=== PATIENT | male | born 1935 | race Caucasian/White ===

== ENCOUNTER → 2016-10-01 12:06 | Outpatient (CLI) | payer MEDICARE, OTHER ==
[2015-09-16 10:09] VITALS: BMI 26.6
[~2016-10-01 12:06] MED LIST: ASPIRIN EC81 M1 PO; OXYCONTIN15 MG PO; ULTRAM50 MG PO; XANAX0.5 MG PO
== END | disposition home or self-care (01) ==
LOC: D.US 12:06 → D.CT 14:00
DX: I65.23 Occlusion and stenosis of bilateral carotid arteries (principal); I73.9 Peripheral vascular disease, unspecified

== ENCOUNTER → 2016-10-07 13:41 | Outpatient (CLI) | payer MEDICARE, OTHER ==
[2015-09-16 10:09] VITALS: BMI 26.6
== END | disposition home or self-care (01) ==
LOC: D.CT 13:41
DX: I65.23 Occlusion and stenosis of bilateral carotid arteries (principal); R91.1 Solitary pulmonary nodule

== ENCOUNTER → 2016-10-14 10:48 | Outpatient (CLI) | payer MEDICARE, OTHER ==
[2015-09-16 10:09] VITALS: BMI 26.6
== END | disposition home or self-care (01) ==
LOC: D.CT 10:48
DX: R91.1 Solitary pulmonary nodule (principal)

== ENCOUNTER 2016-10-21 05:28 | Day surgery (SDC) | payer MEDICARE, OTHER ==
--- NOTE | 2016-10-17 17:21 | HP ---
PATIENT: CECY BARRERA MEDICAL RECORD: [id number] ACCOUNT: [id number] LOCATION:[facility] : 37 ADMISSION DATE: 10/21/16 HISTORY AND PHYSICAL EXAMINATION CECY Berger (81yo, M) ID# [id number]. Date/Time10/03/2016 10:72HBJWV72/06/193[facility] Dept.[facility] ClinicProviderEDRIKA PINEDA MDInsuranceMed Primary: [place]) Insurance # : [id number] PCP : KEMAR CASAS Referring Provider Name : KEMAR CASAS Employer Name : RETIRED Med Secondary: [employer] (MEDICARE SUPPLEMENT) Insurance # : [id number] Policy/Group # : INSPRO PCP : KEMAR CASAS Referring Provider Name : KEMAR CASAS Employer Name : RETIRED Prescription: ARGSDIR - Member is eligible. Prescription: [employer] - Member is eligible. Chief Complaint Followup: Solitary nodule of lung Followup: Carotid artery stenosis CTA AFRO and carotid doppler Patient's Care Team Primary Care Provider (): KEMAR CASAS: [place] [address], [place] [address], , Referring Provider (): KEMAR CASAS: [address], [place] [address], , Patient's Pharmacies [facility] ([facility]): [address], [place] [address], , Vitals BP:150/80 sitting R arm 10/03/2016 11:26 amHR:60R/R 10/03/2016 11:26 amHt:6 ft 2 in 10/03/2016 11:20 amWt:175 lbs 10/03/2016 11:23 amBMI:22.5 10/03/2016 11:23 amAllergies Reviewed Allergies PENICILLINSMedications Reviewed Medications ALPRAZolam 0.5 mg tablet Take 1 tablet(s) 3 times a day by oral route.09/30/16 filledcrealyticsAspir- enteredKat WilsondilTIAZem 30 mg tablet Take 1 tablet(s) 3 times a day by oral route.10/25/15 filledcrealyticsdoxycycline hyclate 100 mg cvijsmy15/04/17 filledcrealyticsgabapentin 300 mg mkfxmqu00/23/17 filledcrealyticsmethylPREDNISolone 4 mg tablets in a dose pack08/10/16 filledcrealyticsomeprazole 20 mg capsule,delayed acxepjy82/20/17 filledcrealyticsoxyCODONE 15 mg tablet Take 1 tablet(s) every 6 hours by oral route.07/10/16 filledcrealyticsoxyCODONE 30 mg xxlmuq65/20/17 filledcrealyticssucralfate 1 gram wfnlee59/23/17 filledcrealyticstraMADol 50 mg debhqy49/20/16 NutritionixProblems Reviewed Problems Limb pain at rest due to atherosclerosis of alutiiq artery - Onset: 12/08/2015 HISTORY AND PHYSICAL [id number] CECY BARRERA Solitary nodule of lung, Left Carotid artery stenosis, Bilateral Amaurosis fugax, Right Family History Discussed Family History Father- Myocardial infarction ( age: 64)Mother- Old-age ( age: 92)lost siblings to cancerSocial History Discussed Social History Cardiology Smoking Status: Current every day smoker Smoker (1 PPD) High Cholesterol: N High blood pressure: N Overweight: Y Diabetes: N General stress level: High Alcohol intake: None Occupation: retired Marital status: Surgical History Reviewed Surgical History Carotid Endarterectomy - 09/15/2015 - Right Excision, pilonidal cyst - 09/25/2012 Past Medical History Discussed Past Medical History Blurred Vision: Y Eye Problems: Y Pain in legs when walking: Y Documents for Discussion N/A Screening None recorded. HPI Cerebral Vascular Disease Reported by patient. Quality: weakness; dizziness Aggravating Factors: position change Associated Symptoms: syncope Peripheral Vascular Disease Reported by patient. Location: calf; back Quality: cramping; burning; weakness Severity: interferes with normal activity Onset/Timing: continuous Notes: "seeing a pain DrKelly today" patient declined workup of solitary pulmonary nodule Carotid artery disease and a recent TIA Rest pain lower extremities bilaterally ROS Patient reports exercise intolerance but reports no fever, no night sweats, no significant weight gain, and no significant weight loss. He reports muscle aches, muscle weakness, arthralgias/joint pain, and back pain but reports no swelling in HISTORY AND PHYSICAL [id number] CECY BARRERA the extremities. He reports no loss of consciousness, no weakness, no numbness, no seizures, no dizziness, and no headaches; CTA to 3 months ago. He reports no dry eyes, no irritation, and no vision change. He reports no difficulty hearing and no ear pain. He reports no frequent nosebleeds and no nose/sinus problems. He reports no sore throat, no bleedi ng gums, no snoring, no dry mouth, no mouth ulcers, no oral abnormalities, and no teeth problems. He reports no jugular vein distension and no swollen glands. He reports no chest pain, no arm pain on exertion, no shortness of breath when walking, no short n ess of breath when lying down, no palpitations, and no known heart murmur. He reports no cough, no wheezing, no shortness of breath, and no coughing up blood. He reports no abdominal pain, no vomiting, normal appetite, no diarrhea, not vomiting blood, no n ausea, and no constipation. He reports no incontinence, no difficulty urinating, no hematuria, and no increased frequency. He reports no abnormal mole, no jaundice, and no rashes. He reports no depression, no sleep disturbances, feeling safe in [facility] ip, and no alcohol abuse. He reports no fatigue. He reports no swollen glands and no bruising. He reports no runny nose, no sinus pressure, no itching, no hives, and no frequent sneezing. ROS as noted in the HPI Physical Exam Patient is an 81-year-old male. Constitutional: General Appearance well nourished and developed and healthy-appearing. Level of Distress NAD. Ambulation limited ambulation. Cardiovascular: Apical Impulse not displaced or no thrill. Heart Auscultation normal s1 and s2; no murmurs, rub s, or gallops; and RRR. Arterial Pulses no abdominal aorta bruits, femoral bruits, or popliteal bruits; femoral diminished (bilateral) and dorsalis pedis not palpable (bilateral); and 2+ bilateral, carotid 2+ bilateral, femoral 2+ bilateral, and popliteal 2+ bilateral. Edema no edema or varicosities. Lungs: Repiratory Effort no dyspnea. Percussion no hyperresonance or dullness or flatness. Auscultation no wheezing, rhonchi, or rales / crackles and breathing sounds normal, good air movement, and CTA except as noted. Abdomen: Bowl Sounds normal. Inspection and Palpation no tenderness, guarding, masses, or rebound tenderness and soft and non-distended. Liver non-tender and no hepatomegaly. Spleen non-tender and no splenomegaly. Hernia none palpable. Ears, Nose, Throat: Hearing grossly normal hearing. Nose no external nose lesion. Lips, Teeth, and Gums no mouth or lip ulcers. Oropharynx: moist mucous membranes. Musculoskeletal System: Gait And Stance normal gait and stance. Digits and Nails normal nails and no cyanosis. Joints, Bones, and Muscles limited ROM and normal strength. Neurologic: Cranial Nerves grossly intact. Reflexes DTRs 2+ bilaterally throughout. Sensation grossly intact. Lymph Nodes: Lymph Nodes no cervical LAD, supraclavicular LAD, axillary LAD, or inguinal LAD. Eyes: Lids and Conjunctivae no discharge or pallor and non-injected. Pupils PERRLA. Cornea grossly intact. EOM EOMI. Lens clear. Sclerae non-icteric. Neck: Neck no masses, enlarged lymph nodes, or carotid bruits and supple and trachea HISTORY AND PHYSICAL [id number] BRUCE,CECY L midline. Thyroid no enlargement or nodules and non-tender. Skin: Inspection and Palpation no rash, lesions, ulcers, jaundice, or abnormal nevi. Assessment / Plan superficial femoral artery occlusion bilaterally Solitary pulmonary nodule Change in carotid Doppler and recently a transient ischemic attack 1. Solitary nodule of lung R91.1: Solitary pulmonary nodule 2. Carotid artery stenosis - Bilateral I65.29: Occlusion and stenosis of unspecified carotid artery CAROTID STENOSIS: CARE INSTRUCTIONS 3. Limb pain at rest due to atherosclerosis of alutiiq artery - carotid artery disease recently transient ischemic attack Superficial femoral artery occlusion bilaterally with Rest pain Solitary pulmonary nodule I70.223: Atherosclerosis of alutiiq arteries of extremities with rest pain, bilateral legs Discussion Notes CTA of the carotids Chest x-ray PA and lateral Will schedule for intervention lower extremities right to left first I have discussed his disease process with him in detail as well as the alternative methods of treatment. We discussed arteriogram and intervention including the expected benefits and risk which include bleeding, infection, stroke, and . He understands all of the above and wishes to proceed with planned procedures and surgical intervention if needed. Return to Office Ash Garza MD for New Patient [facility] [place] on 10/04/2016 at 10:00 AM to see Silvino Pineda MD at [facility] on or around 10/17/2016 SILVINO PINEDA MD at 1721 CC: [id number] DICTATION DATE: 10/03/16 1000 MACHINE GREASER: OCTAVIA 10/17/16 1431 PRE IN [facility] [address] [place] [address]
[2016-10-18 12:02] LABS: HEMATOCRIT 46.1 % (42.0-54.0); HEMOGLOBIN 14.8 g/dL (13.5-17.5); MCH 32.3 pg (26.0-34.0); MCHC 32.1 g/dL (31.0-37.0); MCV 100.7 fL (80.0-100.0); MEAN PLATELET VOLUME 10.6 fL (7.4-10.4); RBC 4.58 10x6/uL (4.20-6.10); RDW 12.7 % (11.5-14.5); WBC 6.7 10x3/uL (4.8-10.8)
[2016-10-18 12:07] LABS: APPEARANCE CLEAR (CLEAR); BILIRUBIN NEGATIVE (NEGATIVE); COLOR YELLOW (YELLOW); GLUCOSE NEGATIVE (NEGATIVE); KETONE NEGATIVE (NEGATIVE); LEUKOCYTE ESTERASE NEGATIVE (NEGATIVE); NITRITE NEGATIVE (NEGATIVE); PROTEIN NEGATIVE (NEGATIVE); SPECIFIC GRAVITY 1.015 (1.005-1.020); UROBILINOGEN NORMAL (NORMAL)
[2016-10-18 12:16] LABS: ALBUMIN 3.7 g/dL (3.4-5.0); ANION GAP 9.6 mmol/L (8-16); BILIRUBIN - TOTAL 0.48 mg/dL (0.2-1.3); CALCIUM 8.8 mg/dL (8.5-10.1); CARBON DIOXIDE 30.9 mmol/L (21.0-32.0); CREATININE - SERUM 1.3 mg/dL (0.6-1.3); POTASSIUM - SERUM 4.5 mmol/L (3.5-5.1); PROTEIN - SERUM 7.5 g/dL (6.4-8.2)
[2016-10-18 12:25] LABS: APTT 27.5 SECONDS (22.8-39.4); INR 0.98 (0.85-1.17); PROTIME 12.9 SECONDS (11.6-15.0)
[2016-10-21] VITALS (16 sets, daily range): BP systolic 103–153; BP diastolic 45–70; Ht 188 cm; Wt 81.0 kg
[~2016-10-21] VITALS: Ht 188 cm; Wt 81.0 kg
[~2016-10-21 05:28] MED LIST changes: +FLOMAX0.4 MG PO; +OMEPRAZOLE20 M1 PO; +PROSCAR5 MG PO
--- NOTE | 2016-10-21 12:30 | NUR ---
PT ARRIVED TO CVICU AT THIS TIME. PT IS ALERT, C/O BACK PAIN. PT ON NRB, SWITCHED TO NC @ 4L. PT ATTACHED TO MONITOR, VSS. TEMP LOW, BEAR HUGGER APPLIED. LUNG SOUNDS CLR BILAT. HR 57, WILL MONITOR. INCISION SITE IS SUPPLE, CLEAN DRSG INTACT. LEFT LEG, POST TIB DOPPLERED, WEAK IN R LEG. PT AT BEDSIDE.
--- NOTE | 2016-10-21 15:00 | NUR ---
PT RESTING IN BED COMFORTABLY AT THIS TIME. PT TAKING SMALL SIPS OF WATER. TEMP IS IMPROVING. CENTRAL LINE DILLON MORIN. RHYS. ALMA MARTINI.
--- NOTE | 2016-10-21 17:00 | NUR ---
PT SITTING UP IN BED EATING DINNER IDEPENDENTLY. NO REQUESTS AT THIS TIME. VSS
--- NOTE | 2016-10-21 19:00 | NUR ---
Received patient awake in bed watching TV, Assessment completed per flowsheet. AO x4, demeanor is cooperative and relaxed. Eyes PERRLA @ 3mm with brisk response, sclera white. S1/S2 noted with patient Sinus Carlyle on telemetry with HR 57, rhythmic and regular. Breathing is even and unlabored on 3L via NC, Lung sounds clear all chow. Abdomen is soft and non-tender, bowel sounds active x4. Criticore secured in place, clear yellow urine noted in collection. Full ROM all extremities with upper pulses palpable, R lower weak with L lower doppler. CVL noted L subclavian, patent with fluids infusing. R groin incision site soft to palpation, dressing CDI. Patient c/o bilateral aching/burning leg pain 5/10, repositioned and will provide PRN medication when available. No further needs at this time, all VSS and will continue to monitor.
--- NOTE | 2016-10-21 20:45 | NUR ---
Patient family at bedside for visitation, all questions answered to satisfaction. No further needs at this time, all VSS and will continue to monitor.
--- NOTE | 2016-10-21 22:55 | NUR ---
Reassessment completed per flowsheet, patient resting in bed with eyes closed. Patient AO x4, calm and cooperative. s1/s2 noted with patient Sinus Carlyle on telemetry with HR 60, rhythmic and regular. Breathing is even and unlabored on 3L via NC, O2 sat 96%. R groin incision site soft to palpation, dressing CDI. Patient requested PRN medication for sleep, given without difficulty. Patient states chronic leg pain 2/10, does not need any medication at this time. No further needs and all VSS, will continue to monitor.
[2016-10-22] VITALS (12 sets, daily range): BP systolic 98–146; BP diastolic 46–69
--- NOTE | 2016-10-22 03:00 | NUR ---
Reassessment completed per flowsheet, patient resting in bed with eyes open. Patient AO x4, c/o chronic bilateral leg pain 09/16. Repositioned, provided warm blanket/heat pack to indicated area, will reassess. S1/S2 noted with Sinus Carlyle on telemetry with HR 51, rhythmic and regular. Breathing is even and unlabored on 3L via NC, O2 sat 98%. No further needs at this time, all VSS and will continue to monitor.
[2016-10-22 05:49] LABS: HEMATOCRIT 37.7 % (42.0-54.0); HEMOGLOBIN 12.7 g/dL (13.5-17.5); MCH 32.9 pg (26.0-34.0); MCHC 33.7 g/dL (31.0-37.0); MCV 97.7 fL (80.0-100.0); MEAN PLATELET VOLUME 10.4 fL (7.4-10.4); RBC 3.86 10x6/uL (4.20-6.10); RDW 12.3 % (11.5-14.5); WBC 7.8 10x3/uL (4.8-10.8)
[2016-10-22 06:14] LABS: ANION GAP 7.8 mmol/L (8-16); BILIRUBIN - TOTAL 0.59 mg/dL (0.2-1.3); CALCIUM 8.1 mg/dL (8.5-10.1); CARBON DIOXIDE 30.5 mmol/L (21.0-32.0); CREATININE - SERUM 1.1 mg/dL (0.6-1.3); POTASSIUM - SERUM 3.3 mmol/L (3.5-5.1); PROTEIN - SERUM 6.1 g/dL (6.4-8.2)
--- NOTE | 2016-10-22 07:00 | NUR ---
REPORT RECEIVED. ASSESSMENT COMPLETED. PATIET REQUESTING COFFEE AND FOOD. COFFEE TAKEN TO PATIENT WELL HIS BREAKFAST TRAY. DENIES FURTHER NEEDS AT THIS TIME.
--- NOTE | 2016-10-22 08:09 | NUR ---
CALL PLACED TO ENGINEERING, SPOKE WITH TREMAYNE. PATIENT C/O ROOM BEING TOO COLD. SHE STATED SHE WILL RELAY THE MESSAGE FOR TEMPERATURE ADJUSTMENT.
--- NOTE | 2016-10-22 08:35 | NUR ---
DC'D 16FR LIZARRAGA WITH 8CC BULB, TIP INTACT. PT TOLERATED WELL.
--- NOTE | 2016-10-22 09:12 | NUR ---
DC'D 8FR 16 CM DOUBLE LUMEN SUBCLAVIAN WITH TIP INTACT. PATIENT TOLERATED WELL. SECONDARY TO PATIENT NOT WEARING OXYGEN AT HOME. O2 WAS REMOVED. PATIENT IS SATING 93% ON ROOM AIR.
--- NOTE | 2016-10-22 12:11 | NUR ---
PATIENT DISCHARGED PER ORDERS. DENIES QUESTIONS. TAKEN TO CAR VIA WHEELCHAIR.
--- NOTE | 2016-10-26 11:28 | OP ---
PATIENT NAME: CECY BARRERA MEDICAL RECORD: [id number] :37 LOCATION:[facility] ADMISSION DATE: SURGEON: PAVEL MARX MD DATE OF OPERATION: 10/21/2016 SURGEON: Pavel Marx MD ANESTHESIA: General, Dr. Garcia. OPERATION PERFORMED: 1. Right retrograde sheath placements, 4-Spanish, 5-Spanish, 6-Spanish long. 2. Right retrograde external iliac arteriogram. 3. Left selective common femoral arteriogram. 4. Left superficial femoral arteriogram. 5. Attempted crossing chronic total occlusion of left superficial femoral artery, aborted. 6. Left nonselective distal popliteal arteriogram. PREOPERATIVE DIAGNOSIS: Severe claudication in the lower extremities bilaterally. POSTOPERATIVE DIAGNOSES: Severe claudication in the lower extremities bilaterally. 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 INDICATION FOR OPERATION: Life altering claudication. FINDINGS OF THE OPERATION: Fluoro time was 59 minutes. Contrast was 231 mL. ARTERIOGRAMS: 1. Right external iliac arteriogram demonstrates diffuse disease, but no stenotic lesions. A left common femoral arteriogram demonstrates excellent flow through the iliacs, common femoral into the profunda femoral artery with a stump of superficial femoral artery. 2. Superficial femoral arteriogram demonstrates isolated segments without direct flow to the distal popliteal exuberant collateral flow. 3. Nonselective left popliteal arteriogram below the knee demonstrates good 3-vessel runoff and nondisease distal popliteal segment. ESTIMATED BLOOD LOSS: Less than 100 cc. DESCRIPTION OF PROCEDURE: After informed consent, adequate preoperative medication evaluation, the patient was brought to the operating room, placed on table in supine position. After induction of general endotracheal anesthesia and application of appropriate monitoring devices, the chest, abdomen, and both legs were prepped and draped in a sterile field, utilizing Betadine scrub, alcohol, and Betadine solution. A Betadine-impregnated drape was also used. A retrograde puncture was made in the right common femoral artery and a 4-Spanish sheath was placed. This was exchanged for a 5-Spanish sheath. A retrograde arteriogram demonstrated the iliac vessels without any significant stenotic disease. Utilizing a Glidewire and rim catheter, the left common femoral artery OPERATIVE REPORT [id number] CECY BARRERA was selected. Exchange was made for an Amplatz wire and exchange made for a long 6-Spanish sheath. The arteriogram of the common femoral artery was repleted with runoff. There was exuberant flow to the distal popliteal artery. The superficial femoral artery was totally occluded utilizing multiple wires, catheters and balloons. Attempts were made to cross this chronic total occlusion. We were able to obtain 2 isolated segments; however, no direct flow. Attempts were made to reenter the distal popliteal vessel, which also made with failure. The arteriogram was then performed below the knee with a popliteal artery and 3-vessel runoff to the foot. The wires and catheter sheaths were removed. The patient was given a calculated dose of protamine to reverse the heparin. A 6-Spanish Angio-Seal was deployed with good hemostatic results. Sterile dressing was applied. The patient tolerated the procedure well and was transferred to the CV ICU in satisfactory condition. TRANSINT:[id number] Voice Confirmation ID: [id number] DOCUMENT ID: [id number] PAVEL MARX MD at 1128 CC: [id number] DICTATION DATE: 10/21/16 1220 FAMILY LIFE EDUCATOR: 10/21/[address] [facility] 10/22/16 [facility] [address] [place] [address]
== END 2016-10-22 12:12 | disposition home or self-care (01) ==
LOC: D.CVICU 05:28 → D.SDCHOLD 05:28 → D.CVICU 05:28 → D.OPS 05:28 → EDSTATUS 07:30 → D.SDCHOLD 07:30 → D.CVICU 12:07 → D.OPS 10-22 12:12
PROVIDERS: Internal Medicine Cardiovascular Disease
DX: I70.223 Atherosclerosis of native arteries of extremities with rest pain, bilateral legs (principal); R91.1 Solitary pulmonary nodule; I65.29 Occlusion and stenosis of unspecified carotid artery; G45.3 Amaurosis fugax; F17.210 Nicotine dependence, cigarettes, uncomplicated; E66.3 Overweight; Z68.22 Body mass index [BMI] 22.0-22.9, adult; Z88.0 Allergy status to penicillin; Z79.891 Long term (current) use of opiate analgesic; Z79.52 Long term (current) use of systemic steroids; Z79.2 Long term (current) use of antibiotics; Z79.82 Long term (current) use of aspirin; Z86.73 Personal history of transient ischemic attack (TIA), and cerebral infarction without residual deficits

== ENCOUNTER → 2018-02-24 10:57 | Outpatient (CLI) | payer MEDICARE, OTHER | END | disposition home or self-care (01) | LOC: D.US 10:57 | DX: I73.9 Peripheral vascular disease, unspecified (principal); I65.23 Occlusion and stenosis of bilateral carotid arteries; M79.605 Pain in left leg; M79.604 Pain in right leg ==

== ENCOUNTER 2018-03-07 17:36 | Emergency (ER) | payer MEDICARE, OTHER ==
[~2018-03-07] VITALS: Ht 188 cm; Wt 74.8 kg
[2018-03-07 17:49] VITALS: Ht 188 cm; Wt 74.8 kg
[2018-03-07 18:01] LABS: BASOPHILS 0.2 % (0-2); EOSINOPHILS 1.1 % (0-7); HEMATOCRIT 39.4 % (42.0-54.0); IMMATURE GRANULOCYTES 0.2 % (0-5); LYMPHOCYTES 8.5 % (15-50); MCH 32.3 pg (26.0-34.0); MEAN PLATELET VOLUME 10.1 fL (7.4-10.4); PLATELET COUNT 161 10x3/uL (130-400); RBC 4.02 10x6/uL (4.20-6.10); RDW 12.5 % (11.5-14.5); WBC 11.4 10x3/uL (4.8-10.8)
[2018-03-07 18:18] LABS: BILIRUBIN - TOTAL 0.47 mg/dL (0.2-1.3); CARBON DIOXIDE 28.5 mmol/L (21.0-32.0); CREATININE - SERUM 1.5 mg/dL (0.6-1.3); POTASSIUM - SERUM 4.5 mmol/L (3.5-5.1); PROTEIN - SERUM 7.4 g/dL (6.4-8.2)
[2018-03-07 19:50] LABS: PRO BNP 2759 pg/mL (0-450)
[2018-03-07 19:51] LABS: TROPONIN-I < 0.017 ng/mL (0.000-0.060)
[2018-03-07 22:18] VITALS: BP 105/72
== END 2018-03-07 22:20 | disposition left against medical advice (07) ==
LOC: D.ER 17:36
PROVIDERS: Emergency Medicine
DX: R09.02 Hypoxemia (principal); J44.1 Chronic obstructive pulmonary disease with (acute) exacerbation; J81.0 Acute pulmonary edema; R06.02 Shortness of breath; R05 Cough; R09.89 Other specified symptoms and signs involving the circulatory and respiratory systems; F17.200 Nicotine dependence, unspecified, uncomplicated

== ENCOUNTER 2018-04-28 11:11 | Inpatient (IN) | payer MEDICARE, OTHER ==
[~2018-04-28] VITALS: Ht 188 cm; Wt 65.4 kg
[2018-04-28] VITALS (14 sets, daily range): BP systolic 128–163; BP diastolic 42–74; BMI 20.2
--- NOTE | ~2018-04-28 | MORECARE ---
CASE MANAGEMENT DISCHARGE SUMMARY PATIENT: CECY BARRERA UNIT: [id number] ADM DATE: 04/28/18 AGE: 82 : 36 SEX: M ROOM/BED: D.03 AUTHOR: KAYLA,DOC PHYSICIAN: REFERRING PHYSICIAN: ELIZABETH BERNSTEIN MD DATE OF SERVICE: 05/06/18 Discharge Plan Patient Name: CECY BARRERA Facility: [facility]:[place] : 1935 Planned Disposition: Inpatient Rehab Anticipated Discharge Date: Discharge Date: 05/06/2018 Expected LOS: Initial Reviewer: [email or web address] Initial Review Date: 05/01/2018 Generated: 05/06/18 5:24 pm Comments DCP- Discharge Planning Updated by [email or web address]: Catherine Light on 05/06/18 3:[address] IMM explained and served 05/06/18 @ [facility]. CM will continue to follow and assist as needed with discharge planning / needs. DCP- Discharge Planning Updated by [email or web address]: Georgia Isaiah on 05/06/18 8:[address] CM spoke with Sheeba at [facility] rehab regarding status of patient going to rehab. Sheeba informed CM that Dr. Marx is planning to pull pacer wires this am and then patient can go to rehab as soon as screening is finished. Sheeba is in the process of completing the screen and expects patient to go to rehab today. CM informed Kika charge nurse. CM will continue to follow and assist as needed with discharge planning / needs. DCP- Discharge Planning Updated by [id number]: Catherine Light on 05/05/18 6:[address] CM spoke with Sheeba with rehab. Sheeba stated that rehab will accept patient when medically stable. CM will continue to follow and assist with discharge planning / needs DCP- Discharge Planning Updated by [id number]: Catherine Light on 05/04/18 9:[address] CM called Dr. Alex Martinez office to find out name of Hospice provider. Patient was admitted to [facility] [phone] on 04/20/18. CM spoke with Hospice and they were aware patient was in hospital for cardiac problems which they said was alright since he was admitted to hospice for COPD. CM explained that patient had a referral for rehab. Hospice stated that if he goes to rehab then he will have to be discharged from their services. CM will continue to follow and assist with discharge planning / needs. DCP- Discharge Planning Updated by [id number]: Catherine Light on 05/01/18 12:[address] Patient Name: CECY BARRERA Admission Status: Elective Accout number: [id number] Admission Date: 04-28-2018 : 1935 Admission Diagnosis: Attending: ELIZABETH BERNSTEIN Current LOS: 3 Anticipated DC Date: Planned Disposition: Home with Hospice Primary Insurance: MEDICARE A & B Discharge Planning Comments: CM ATTEMPTED TO MEET WITH PATIENT BUT AT THIS TIME HE CURRENTLY CONFUSED AND AGITATED. CM SPOKE WITH MARIBEL VEGA -N-LAW. SHE STATES THAT THE PATIENT LIVES ALONE AND THAT HIS A MONTH AGO. MARIBEL STATES THAT THE PATIENT HAS HOSPICE IN HIS HOME BUT DOESN'T KNOW PROVIDER. SHE STATES THAT THEY HAVE PROVIDED HIM WITH HOME 02. CM CALLED DR. KUO OFFICE TO FIND OUT NAME OF HOSPICE PROVIDER. THE OFFICE IS CLOSED TODAY FOR HOLIDAY. MARIBEL IS UNCERTAIN PATIENTS DISCHARGE NEEDS AT THIS TIME. CM WILL CONTINUE TO FOLLOW AND NEEDED WITH DISCHARGE PLANNING / NEEDS. Broker Associate: Catherine Light DCPIA - Discharge Planning Initial Assessment Updated by [email or web address]: Catherine Light on 05/01/18 1:02 pm * Is the patient Alert and Oriented? Yes * How many steps to enter\exit or inside your home? * PCP ALEX MARTINEZ * Preadmission Environment Home Alone * ADLs Independent * Equipment Oxygen * List name and contact numbers for known caregivers / representatives who currently or will assist patient after discharge: MARIBEL Graff [id number] [phone] * Verbal permission to speak to the caregivers and representatives has been obtained from the patient. N/A * Community resources currently utilized Hospice Home * Please name any agencies selected above. UNKNOWN PROVIDER WILL NEED TO CALL DR. MARTINEZ OFFICE * Additional services required to return to the preadmission environment? No * Can the patient safely return to the preadmission environment? Yes * Has this patient been hospitalized within the prior 30 days at any hospital? No Coverage Notice Reviewer: [email or web address] - Catherine Light Notice Issued Date-Time: 05/06/2018 12:35 Notice Type: IM Discharge Notice Notice Delivered To: Patient Relationship to Patient: Self Clinical Staff Rn Name: Delivery Method: HAND - Hand Delivered Angeli Days: Prior Verbal Notification: Recipient Understood Notice: Yes Recipient Signature: Yes Med Rec Note Co-signed by Attending: Coverage Notice Comment: Last DP export: 05/06/18 8:59 Patient Name: CECY BARRERA Page [id number] at 1624 All edits/amendments must be made on the electronic document DICTATION DATE: 05/06/18 1624 LEAD RADIATION THERAPIST: OCTAVIA 05/06/18 1624 RPT#: [id number] DC DATE:05/06/18 STATUS: DIS IN [facility] [address] [place] [address] END OF REPORT
--- NOTE | ~2018-04-28 | MORECARE ---
CASE MANAGEMENT DISCHARGE SUMMARY PATIENT: CECY BARRERA UNIT: [id number] ADM DATE: 04/28/18 AGE: 82 : 36 SEX: M ROOM/BED: D[facility] AUTHOR: KAYLADOC PHYSICIAN: REFERRING PHYSICIAN: ELIZABETH BERNSTEIN MD DATE OF SERVICE: 05/01/18 Discharge Plan Patient Name: CECY BARRERA Facility: [facility]:[place] : 1935 Planned Disposition: Home with Hospice Anticipated Discharge Date: Discharge Date: Expected LOS: Initial Reviewer: [email or web address] Initial Review Date: 05/01/2018 Generated: 05/01/18 2:16 pm Comments DCP- Discharge Planning Updated by [email or web address]: Catherine Light on 05/01/18 12:[address] Patient Name: CECY BARRERA Admission Status: Elective Accout number: [id number] Admission Date: 04-28-2018 : 1935 Admission Diagnosis: Attending: ELIZABETH BERNSTEIN Current LOS: 3 Anticipated DC Date: Planned Disposition: Home with Hospice Primary Insurance: MEDICARE A & B Discharge Planning Comments: CM ATTEMPTED TO MEET WITH PATIENT BUT AT THIS TIME HE CURRENTLY CONFUSED AND AGITATED. CM SPOKE WITH MARIBEL PATIENTS SISTER -N-LAW. SHE STATES THAT THE PATIENT LIVES ALONE AND THAT HIS A MONTH AGO. MARIBEL STATES THAT THE PATIENT HAS HOSPICE IN HIS HOME BUT DOESN'T KNOW PROVIDER. SHE STATES THAT THEY HAVE PROVIDED HIM WITH HOME 02. CM CALLED DR. KUO OFFICE TO FIND OUT NAME OF HOSPICE PROVIDER. THE OFFICE IS CLOSED TODAY FOR HOLIDAY. MARIBEL IS UNCERTAIN PATIENTS DISCHARGE NEEDS AT THIS TIME. CM WILL CONTINUE TO FOLLOW AND NEEDED WITH DISCHARGE PLANNING / NEEDS. Jaw Skinner: Catherine Light DCPIA - Discharge Planning Initial Assessment Updated by [email or web address]: Catherine Light on 05/01/18 1:02 pm * Is the patient Alert and Oriented? Yes * How many steps to enter\exit or inside your home? * PCP ALEX CASAS * Preadmission Environment Home Alone * ADLs Independent * Equipment Oxygen * List name and contact numbers for known caregivers / representatives who currently or will assist patient after discharge: MARIBEL - [id number] [phone] * Verbal permission to speak to the caregivers and representatives has been obtained from the patient. N/A * Community resources currently utilized Hospice Home * Please name any agencies selected above. UNKNOWN PROVIDER WILL NEED TO CALL DR. CASAS OFFICE * Additional services required to return to the preadmission environment? No * Can the patient safely return to the preadmission environment? Yes * Has this patient been hospitalized within the prior 30 days at any hospital? No Last DP export: 05/01/18 12:09 Patient Name: CECY BARRERA Page [phone] at 1316 All edits/amendments must be made on the electronic document DICTATION DATE: 05/01/18 1316 FOOD PRODUCTION SUPERVISOR: OCTAVIA 05/01/18 1316 RPT#: [id number] DC DATE: STATUS: ADM IN [facility] [address] [place] [address] END OF REPORT
--- NOTE | ~2018-04-28 | MORECARE ---
CASE MANAGEMENT DISCHARGE SUMMARY PATIENT: CECY BARRERA UNIT: [id number] ADM DATE: 04/28/18 AGE: 82 : 36 SEX: M ROOM/BED: D.[facility] AUTHOR: RADHAMES GARZA PHYSICIAN: REFERRING PHYSICIAN: ELIZABETH BERNSTEIN MD DATE OF SERVICE: 05/01/18 Discharge Plan Patient Name: CECY BARRERA [facility] [facility] 1935 Planned Disposition: Home with Hospice Anticipated Discharge Date: Discharge Date: Expected LOS: Initial Reviewer: [email or web address] Initial Review Date: 05/01/2018 Generated: 05/01/18 2:01 pm Patient Name: CECY BARRERA Page [id number] at 1301 All edits/amendments must be made on the electronic document DICTATION DATE: 05/01/18 1301 SOAP PRESS FEEDER: OCTAVIA 05/01/18 1301 RPT#: [id number] DC DATE: STATUS: ADM IN [facility] [address] [place] [address] END OF REPORT
--- NOTE | ~2018-04-28 | OP ---
PATIENT NAME: CECY BARRERA MEDICAL RECORD: [id number] :37 LOCATION:[facility] D.CV03 ADMISSION DATE:04/28/18 SURGEON: SILVINO MARX MD DATE OF OPERATION: 04/29/2018 SURGEON: Silvino Marx MD ANESTHESIA: General endotracheal, Koko Garcia MD OPERATION PERFORMED: Aortocoronary artery bypass utilizing the left internal thoracic to the left anterior descending. PREOPERATIVE DIAGNOSES: Critical left anterior descending coronary artery disease, dissection of the mid LAD. POSTOPERATIVE DIAGNOSES: Critical left anterior descending coronary artery disease, dissection of the mid LAD. INDICATION FOR OPERATION: Compelling anatomy. Dissection of left anterior descending. FINDINGS OF THE OPERATION: Epicardial hematoma. The left internal thoracic was an excellent conduit and the distal target of the LAD was also adequate for grafting. ESTIMATED BLOOD LOSS: Cell Saver was used. DESCRIPTION OF PROCEDURE: After informed consent, adequate preoperative medication, and evaluation, the patient was brought to the operating room and placed on the table in supine position. After induction of general endotracheal anesthesia and application of appropriate monitoring devices, the chest, neck, abdomen, and both legs were prepped and draped in sterile field utilizing Betadine scrub, alcohol, and Betadine solution. Betadine-impregnated drape was also used. Median sternotomy incision was made and dissection was carried down the fascia. Hemostasis was maintained with electrocautery. Sternum was divided. Innominate vein was identified and protected. Left internal thoracic was taken down and prepared for grafting. The patient was given a calculated dose of heparin. Pericardium was opened. A pericardial well was performed utilizing pericardial traction sutures. The patient was given calculated dose of heparin and cannulated in standard fashion utilizing one aortic and one two-stage cannula in atrium and inferior vena cava. The patient was placed on cardiopulmonary bypass and allowed to drift. The epicardial hematoma was inspected. The left anterior descending was found in its distal portion and dissected more proximally in the epicardial hematoma. The left anterior descending was opened. The left internal thoracic was brought through a hole in pericardium and sutured to the left anterior descending end-to-side utilizing running 8-0 Prolene suture. Pedicle was attached to epicardium with 6-0 Prolene suture. Evicel was used to seal the area of the hematoma as well as over the anastomosis. The patient underwent all maneuvers to remove trapped air. The patient was given warm cardioplegic reperfusion and controlled reperfusion. The patient was rewarmed to 37 degrees centigrade. Two atrial and two ventricular pacing wires were placed in the heart and brought out through the epigastric area. The patient was weaned from cardiopulmonary bypass. After being stable off bypass, he was given calculated dose of protamine to reverse the heparin. Hemostasis was achieved. A #40 right angle and a #36 chest tubes were brought OPERATIVE REPORT [id number] CECY BARRERA in through the epigastric area and placed in the mediastinum. A separate Nick tube was connected to a bulb in the left pleura. The chest was again irrigated. Instrument count and sponge count were correct times 2. Chest was closed in layers utilizing #7 wire on the sternum, #2 Vicryl on linea alba and pectoralis fascia. Subcutaneous tissue was approximated with 3-0 Vicryl and skin was approximated with 3-0 subcuticular Vicryl. Sterile dressings were applied. The patient tolerated the procedure well and was transferred to cardiovascular recovery in stable condition. TRANSINT:[id number] Voice Confirmation ID: [id number] DOCUMENT ID: [id number] SILVINO MARX MD at 1001 CC: [id number] DICTATION DATE: 04/29/18 1333 STUDENT LOAN COUNSELOR: 04/29/[address] [facility] [place] [id number] [place] [id number]
--- NOTE | ~2018-04-28 | MORECARE ---
CASE MANAGEMENT DISCHARGE SUMMARY PATIENT: CECY BARRERA UNIT: [id number] ADM DATE: 04/28/18 AGE: 82 : 36 SEX: M ROOM/BED: D[facility] AUTHOR: RADHAMES GARZA PHYSICIAN: REFERRING PHYSICIAN: ELIZABETH BERNSTEIN MD DATE OF SERVICE: 05/01/18 Discharge Plan Patient Name: CECY BARRERA [facility] [facility] 1935 Planned Disposition: Home with Hospice Anticipated Discharge Date: Discharge Date: Expected LOS: Initial Reviewer: [email or web address] Initial Review Date: 05/01/2018 Generated: 05/01/18 2:09 pm DCPIA - Discharge Planning Initial Assessment Updated by [email or web address]: aCtherine Light on 05/01/18 1:02 pm * Is the patient Alert and Oriented? Yes * How many steps to enter\exit or inside your home? * PCP ALEX CASAS * Preadmission Environment Home Alone * ADLs Independent * Equipment Oxygen * List name and contact numbers for known caregivers / representatives who currently or will assist patient after discharge: MARIBEL [id number] [phone] * Verbal permission to speak to the caregivers and representatives has been obtained from the patient. N/A * Community resources currently utilized Hospice Home * Please name any agencies selected above. UNKNOWN PROVIDER WILL NEED TO CALL DR. CASAS OFFICE * Additional services required to return to the preadmission environment? No * Can the patient safely return to the preadmission environment? Yes * Has this patient been hospitalized within the prior 30 days at any hospital? No Last DP export: 05/01/18 12:01 Patient Name: CECY BARRERA Page 99600 at 1309 All edits/amendments must be made on the electronic document DICTATION DATE: 05/01/18 1308 HOOK AND EYE MACHINE OPERATOR: OCTAVIA 05/01/18 1308 RPT#: [id number] DC DATE: STATUS: ADM IN [facility] [address] [place] [address] END OF REPORT
--- NOTE | ~2018-04-28 | OP ---
PATIENT NAME: CECY BARRERA MEDICAL RECORD: [id number] :37 LOCATION:[facility].CV03 ADMISSION DATE:04/28/18 SURGEON: FREEMAN HAM MD DATE OF OPERATION: 04/28/2018 DATE OF SERVICE: 04/28/2018 PROCEDURES: 1. Laser atherectomy LAD. 2. Selective coronary angiography. INDICATION: Angina and coronary artery disease. PROCEDURE IN DETAIL: After informed consent was obtained and after detailed explanation of risks, benefits as well as alternative therapies, the patient elected to proceed with angiogram and atherectomy. The right femoral area had already had a preexisting 6-Canadian sheath from Dr. Helton's catheterization and intervention. FINDINGS: The left anterior descending is subtotally occluded with dissection and heavy calcification in the mid vessel after balloon angioplasty and inability to place a stent, laser catheter was used, it was a 0.9 catheter initially at 45/25, multiple passes were made at 45/80, then 80 and 80. There was no resolution of the lesion despite aggressive laser atherectomy. I then took a 3.5-mm balloon and inflated this to 21 atmospheres. The lesion did not give; however, there was no worsening of the already existing dissection. OVERALL IMPRESSION: Unsuccessful laser atherectomy and percutaneous transluminal coronary angioplasty of the left anterior descending, evaluate for coronary bypass graft surgery. TRANSINT:[id number] Voice Confirmation ID: [id number] DOCUMENT ID: [id number] FREEMAN HAM MD at 1704 CC: [id number] DICTATION DATE: 04/29/18 1039 HEALTHCARE RISK CONTROL CONSULTANT: 04/29/18 1118 ADM IN [place] [id number] [place] [address]
--- NOTE | ~2018-04-28 | MORECARE ---
CASE MANAGEMENT DISCHARGE SUMMARY PATIENT: CECY BARRERA UNIT: [id number] ADM DATE: 04/28/18 AGE: 82 : 36 SEX: M ROOM/BED: D.CV03 AUTHOR: KAYLA,DOC PHYSICIAN: REFERRING PHYSICIAN: ELIZABETH BERNSTEIN MD DATE OF SERVICE: 05/06/18 Discharge Plan Patient Name: CECY BARRERA Facility: [facility]:[place] : 1935 Planned Disposition: Inpatient Rehab Anticipated Discharge Date: Discharge Date: Expected LOS: Initial Reviewer: [email or web address] Initial Review Date: 05/01/2018 Generated: 05/06/18 10:59 am Comments DCP- Discharge Planning Updated by [email or web address]: [place] Isaiah on 05/06/18 8:[address] CM spoke with Sheeba at [facility] rehab regarding status of patient going to rehab. Sheeba informed CM that Dr. Marx is planning to pull pacer wires this am and then patient can go to rehab as soon as screening is finished. Sheeba is in the process of completing the screen and expects patient to go to rehab today. CM informed Kika charge nurse. CM will continue to follow and assist as needed with discharge planning / needs. DCP- Discharge Planning Updated by [email or web address]: Catherine Light on 05/05/18 6:[address] CM spoke with Sheeba with rehab. Sheeba stated that rehab will accept patient when medically stable. CM will continue to follow and assist with discharge planning / needs DCP- Discharge Planning Updated by [email or web address]: Catherine Light on 05/04/18 9:[address] CM called Dr. Alex Martinez office to find out name of Hospice provider. Patient was admitted to [facility] [phone] on 04/20/18. CM spoke with Hospice and they were aware patient was in hospital for cardiac problems which they said was alright since he was admitted to hospice for COPD. CM explained that patient had a referral for rehab. Hospice stated that if he goes to rehab then he will have to be discharged from their services. CM will continue to follow and assist with discharge planning / needs. DCP- Discharge Planning Updated by [email or web address]: Catherine Light on 05/01/18 12:[address] Patient Name: CECY BARRERA Admission Status: Elective Accout number: [id number] Admission Date: 04-28-2018 : 1935 Admission Diagnosis: Attending: ELIZABETH BERNSTEIN Current LOS: 3 Anticipated DC Date: Planned Disposition: Home with Hospice Primary Insurance: MEDICARE A & B Discharge Planning Comments: CM ATTEMPTED TO MEET WITH PATIENT BUT AT THIS TIME HE CURRENTLY CONFUSED AND AGITATED. CM SPOKE WITH MARIBEL SHIPMAN SISTER -N-LAW. SHE STATES THAT THE PATIENT LIVES ALONE AND THAT HIS A MONTH AGO. MARIBEL STATES THAT THE PATIENT HAS HOSPICE IN HIS HOME BUT DOESN'T KNOW PROVIDER. SHE STATES THAT THEY HAVE PROVIDED HIM WITH HOME 02. CM CALLED DR. KUO OFFICE TO FIND OUT NAME OF HOSPICE PROVIDER. THE OFFICE IS CLOSED TODAY FOR HOLIDAY. MARIBEL IS UNCERTAIN PATIENTS DISCHARGE NEEDS AT THIS TIME. CM WILL CONTINUE TO FOLLOW AND NEEDED WITH DISCHARGE PLANNING / NEEDS. Telecommunications Support: Catherine Light DCPIA - Discharge Planning Initial Assessment Updated by [email or web address]: Catherine Light on 05/01/18 1:02 pm * Is the patient Alert and Oriented? Yes * How many steps to enter\exit or inside your home? * PCP ALEX MARTINEZ * Preadmission Environment Home Alone * ADLs Independent * Equipment Oxygen * List name and contact numbers for known caregivers / representatives who currently or will assist patient after discharge: MARIBEL - [id number] [phone] * Verbal permission to speak to the caregivers and representatives has been obtained from the patient. N/A * Community resources currently utilized Hospice Home * Please name any agencies selected above. UNKNOWN PROVIDER WILL NEED TO CALL DR. MARTINEZ OFFICE * Additional services required to return to the preadmission environment? No * Can the patient safely return to the preadmission environment? Yes * Has this patient been hospitalized within the prior 30 days at any hospital? No Last DP export: 05/05/18 6:23 Patient Name: CECY BARRERA Page 09260 at 0959 All edits/amendments must be made on the electronic document DICTATION DATE: 05/06/18957 TONGUE PRESSER: OCTAVIA 05/06/18957 RPT#: [id number] DC DATE: STATUS: ADM IN [facility] [address] [facility] [place] [address] END OF REPORT
--- NOTE | ~2018-04-28 | HEMODYNAMI ---
PATIENT:CECY BARRERA MEDICAL RECORD: [id number] : 37 LOCATION:[facility] ADMISSION DATE: 04/28/18 Generatedon:04/28/201815:59 Patient name: CECY BARRERA Patient #: [id number] SSN: : 1935 Date of study: 04/28/2018 Page: Of Hemodynamic Procedure Report Patient Data Patient Demographics Procedure consent was obtained First Name: CECY Gender: Male Last Name: BRUCE : 1935 Middle Initial: L Age: 82 year(s) Patient #: [id number] Race: Unknown Additional ID: [id number] Contact details Address: [address] [place] [address] State: [place] City: [place] Zip code: [address] Past Medical History Allergies Allergen Reaction Date Comments Reported Penicillins 04/28/2018 Admission Admission Data Admission Date: 04/28/2018 Admission Time: 11:11 Admit Source: Other Lab Results Lab Result Date: 04/28/2018 Lab Result Time: 11:40 Biochemistry Name Units Result Min Max BUN mg/dl 37 --(----)-* 7 18 Creatinine mg/dl 1.4 --(----)*- 0.6 1.3 CBC Name Units Result Min Max Hematocrit % 41.4 -*(----)-- 42 54 Hemoglobin g/dl 13.6 --(*---)-- 13.5 17.5 Procedure Procedure Types Cath Procedure Diagnostic Procedure LHC LHC w/Coronaries Sedation Charges Moderate Sedation up to 45 minutes PCI Procedure Coronary Atherectomy Atherectomy w/Stent Coronary Initial Procedure Description Procedure Date Procedure Date: 04/28/2018 Procedure Start Time: 14:14 Procedure End Time: 15:57 Procedure Staff Name Function Madan Coleman MD Performing Physician Eladia Beatty RT Monitor Yao Merrill RT Scrub Zo Galindo RN Nurse Lg Rodriguez RN Telecommunications Consultant Antonietta Daly RT Monitor Procedure Data Cath Procedure Fluoroscopy Diagnostic fluoroscopy Total fluoroscopy Time: 0 time: 0 min min Diagnostic fluoroscopy Total fluoroscopy dose: dose: 2499 mGy 2499 mGy Contrast Material Contrast Material Type Amount (ml) Isovue 300 182 Entry Location Entry Primary Successful Side Size Upsize Upsize Entry Closure Brooke ccessful Closure Location (Fr) 1 (Fr) 2 (Fr) Remarks Device Remarks Radial Right 6 Fr Mechanical artery Short Compression Estimated blood loss: 10 ml Diagnostic catheters Device Type Used For End Catheter Placement DIAGNOSTIC [place] 110cm 5 LV Angiography Fr catheter ([id number]) DIAGNOSTIC [place] 110cm 5 Left Coronary Fr catheter (707295) Angiography DIAGNOSTIC [place] 110cm 5 Right Coronary Fr catheter ([id number]) Angiography Procedure Complications No complications Procedure Medications Medication Administration Route Dosage 0.9% NaCl I.V. 100 ml/hr Oxygen etCO2 Nasal cannula 2 l/min Lidocaine 2% added to field 20 Heparin Flush Bag added to field 2 bags (1000units/500ml NS) Radial Cocktail added to field 1 syringe (Verapomil 2mg/Nitro 400mcg/Heparin 1500units) Versed I.V. 2 mg Fentanyl I.V. 50 mcg Versed I.V. 2 mg Fentanyl I.V. 50 mcg Heparin Bolus I.V. 4000 units Integrilin (Bolus I.V. 6.2 ml 2mg/ml) Plavix P.O. 600 mg Versed I.V. 2 mg Fentanyl I.V. 50 mcg Fentanyl I.V. 50 mcg Versed I.V. 2 mg Fentanyl I.V. 50 mcg Heparin Bolus I.V. 2000 units Versed I.V. 2 mg Fentanyl I.V. 25 mcg Heparin Bolus I.V. 3000 units Fentanyl I.V. 25 mcg Heparin Drip I.V. drip 1000 units/hr (14860rlpdu/250 D5W) Hemodynamics Rest HGB: 13.6 (g/dl) Heart Rate: 54 (bpm) Pressure Samples Time Site Value (mmHg) Purpose Heart Use Rate(bpm) 14:17 LV 107/-3,13 EDP 56 14:18 AO 98/46(67) Pullback 55 14:18 LV 96/-1,3 Pullback 55 Gradients Valve Time Site 1 Site 2 Mean SEP/DFP Peak To Heart Use (mmHg) (sec/min) Peak Rate (mmHg) (bpm) Aortic 14:18 LV AO 0 20 0 55 96/-1,3 98/46(67) Calculations Valve P-P Mean Valve Index Valve Source Name Gradient Area Flow (cm2) Aortic 0 0 0 0 Snapshots Pre Cath Intra NCS Post Cath Vital Signs Time Heart Resp SPO2 etCO2 NIBP (mmHg) Rhythm Pain Sedation Rate (ipm) (%) (mmHg) Status Level (bpm) 13:46:28 48 14 98 32.5 139/72(128) SB 0 (11) 10(A) , No pain 13:51:51 54 11 100 23 182/85(154) SB 0 (11) 10(A) , No pain 13:57:09 52 13 100 35.5 182/80(140) SB 0 (11) 10(A) , No pain 14:01:27 56 13 98 34 168/89(126) SB 0 (11) 10(A) , No pain 14:05:43 52 11 98 36 161/86(124) SB 0 (11) 10(A) , No pain 14:10:09 56 17 96 23 164/77(136) SB 0 (11) 9(A) , No pain 14:14:35 50 14 97 33.7 155/77(101) SB 0 (11) 9(A) , No pain 14:19:04 52 12 98 13.6 115/52(87) SB 0 (11) 9(A) , No pain 14:23:18 52 11 95 19.6 124/64(92) SB 0 (11) 9(A) , No pain 14:27:34 53 12 95 22.7 126/66(105) SB 0 (11) 10(A) , No pain 14:31:46 68 18 97 28.7 144/80(109) NSR 0 (11) 10(A) , No pain 14:36:59 74 13 95 30.6 168/87(149) NSR 0 (11) 9(A) , No pain 14:41:21 83 17 95 28.7 171/91(150) NSR 0 (11) 10(A) , No pain 14:45:45 64 13 96 29.6 171/89(148) NSR 0 (11) 10(A) , No pain 14:50:14 64 14 96 24.5 166/81(135) NSR 0 (11) 10(A) , No pain 14:54:38 67 13 96 17.3 168/92(146) NSR 0 (11) 10(A) , No pain 14:58:56 72 14 97 11.3 162/94(144) NSR 0 (11) 10(A) , No pain 15:03:59 67 13 96 23 162/88(121) NSR 0 (11) 9(A) , No pain 15:08:21 57 13 96 23.7 155/89(132) SB 0 (11) 10(A) , No pain 15:13:30 57 13 97 21.1 154/77(121) SB 0 (11) 10(A) , No pain 15:18:44 50 12 97 20.4 148/72(121) SB 0 (11) 10(A) , No pain 15:23:51 64 13 98 14 151/79(91) NSR 0 (11) 10(A) , No pain 15:28:11 68 12 98 21.9 150/90(128) NSR 0 (11) 10(A) , No pain 15:32:29 78 15 98 1.5 151/91(121) NSR 0 (11) 10(A) , No pain 15:36:49 52 12 97 24.9 162/85(125) SB 0 (11) 9(A) , No pain 15:41:16 54 14 96 15.1 155/74(137) SB 0 (11) 9(A) , No pain 15:45:40 54 12 97 21.1 154/77(118) SB 0 (11) 9(A) , No pain 15:50:04 54 13 97 26 159/77(136) SB 0 (11) 10(A) , No pain 15:54:28 54 13 96 5.3 169/80(133) SB 0 (11) 10(A) , No pain Medications Time Medication Route Dose Verified Delivered Reason No erica Effectiveness by by 13:13:11 0.9% NaCl I.V. 100 Madan Younga used for ml/hr Virginia Mateo procedure MD RICH 13:13:17 Oxygen etCO2 2 l/min Madan Younga used for Nasal Virginia Mateo procedure cannula MD RICH 13:13:22 Lidocaine 2% added 20ml Madan Pathak used for to vial Virginia Mateo procedure field RN 13:13:28 Heparin Flush added 2 bags Madan Zo used for Bag to Clayton Mateo procedure (1000units/500ml field BEST RN NS) 13:45:40 Radial Cocktail added 1 Madan Hgaer used for (Verapomil to syringe Virginia Virginia procedure 2mg/Nitro field MD BEST 400mcg/Heparin 1500units) 13:58:52 Versed I.V. 2 mg Madan Zo for sedation [facility] Navarro Galindo MD, RN 13:59:03 Fentanyl I.V. 50 mcg Madan Oz for sedation [facility] Navarro Galindo MD, RN 14:08:24 Versed I.V. 2 mg Madan Zo for sedation [facility] Navarro Galindo MD, RN 14:08:29 Fentanyl I.V. 50 mcg Madan Zo for sedation [facility] Navarro Galindo MD, RN 14:23:20 Heparin Bolus I.V. 4000 Madan Zo for ve rified units [facility] anticoagulation with Dr. MD RICH [place] 14:23:38 Integrilin I.V. 6.2 ml Madan Zo for wa sted (Bolus 2mg/ml) [facility] anticoagulation 3.8mL MD RICH 14:24:49 Plavix P.O. 600 mg Madan Zo for [facility] antiplatelet RN therapy 14:32:19 Versed I.V. 2 mg Madan Zo for sedation [facility] Navarro Galindo MD RN 14:39:08 Fentanyl I.V. 50 mcg Madan Zo for sedation [facility] Navarro Galindo MD, RN 14:42:33 Fentanyl I.V. 50 mcg Madan Zo for sedation [facility] Navarro Galindo MD, RN 14:56:52 Versed I.V. 2 mg Madan Zo for sedation [facility] Navarro Galindo MD, RN 14:59:37 Fentanyl I.V. 50 mcg Madan Zo for sedation [facility] Navarro Galindo MD, RN 15:07:07 Heparin Bolus I.V. 2000 Madan Zo for units Clayton Maeto anticoagulation MD RICH 15:19:27 Versed I.V. 2 mg Madan Zo for sedation [facility] Navarro Galindo MD, RN 15:21:54 Fentanyl I.V. 25 mcg Madan Zo for sedation [facility] Navarro Galindo MD, RN 15:27:41 Heparin Bolus I.V. 3000 Madan Zo for ve rified units [facility] anticoagulation with Dr. MD LAYLA Helton 15:31:49 Fentanyl I.V. 25 mcg Madan Pathak for sedation [facility] Navarro Galindo MD, RN 15:49:08 Heparin Drip I.V. 1000 Madan Pathak for ve rified (41321nqikn/250 drip units/hr [facility] Navarro Galindo anticoagulation with Dr. Del Toro) MD LAYLA Helton Procedure Log Time Note 12:50:24 Informed consent obtained and on chart 12:50:28 Admit Source: Other 12:51:16 Diagnostic Cath status Elective 12:51:18 Time tracking: Regular hours (M-F 7:00 - 5:00) 12:51:22 Plan of Care:Hemodynamics will remain stable., Cardiac rhythm will remain stable., Comfort level will be maintained., Respiratory function will remain adequate., Patient/ family verbilizes understanding of procedure., Procedure tolerated without complication., Recovers from procedure without complications.. 12:51:40 H&P Date Dictated: 04/24/2018 Within 30 days and on chart., H&P Addendum completed by physician on day of procedure. (MUST COMPLETE FOR ALL OUTPATIENTS). 13:07:34 Lab Result : Creatinine 1.4 mg/dl 13:07:34 Lab Result : BUN 37 mg/dl 13:07:34 Lab Result : Hemoglobin 13.6 g/dl 13:07:34 Lab Result : Hematocrit 41.4 % 13:07:37 Lab results completed and on chart. 13:13:11 0.9% NaCl 100 ml/hr I.V. was administered by Zo Galindo RN; used for procedure; 13:13:17 Oxygen 2 l/min etCO2 Nasal cannula was administered by Zo Galindo RN; used for procedure; 13:13:22 Lidocaine 2% 20ml vial added to field was administered by Zo Galindo RN; used for procedure; 13:13:28 Heparin Flush Bag (1000units/500ml NS) 2 bags added to field was administered by Zo Galindo RN; used for procedure; 13:32:05 Lg Rodriguez RN sent for patient. Start room use. 13:38:28 Patient received from Pre/Post Procedure Room to CCL 1 Alert and oriented. Tansferred to table in Supine position. 13:38:29 Warm blankets applied, and pippa hugger turned on for patient comfort. 13:38:29 Correct patient and procedure confirmed by team. 13:38:31 ECG and BP/O2 sat monitors applied to patient. 13:44:26 Vital chart was started 13:45:40 Radial Cocktail (Verapomil 2mg/Nitro 400mcg/Heparin 1500units) 1 syringe added to field was administered by Madan Coleman MD; used for procedure; 13:54:07 Baseline sample Acquired. 13:54:13 Rhythm: sinus bradycardia 13:54:14 Full Disclosure recording started 13:54:15 Pre-procedure instructions explained to patient. 13:54:16 Pre-op teaching completed and patient verbalized understanding. 13:54:17 Family in patients room. 13:54:19 Patient NPO since Midnight. 13:54:25 Patient allergic to Penicillins 13:54:30 Is patient on blood thinner?No 13:54:31 Patient diabetic? No. 13:54:34 Previous problem with sedation/anesthesia? No ? 13:54:35 Snore? Yes 13:54:36 Sleep apnea? No 13:54:37 Deviated septum? No 13:54:38 Opens mouth fully? Yes 13:54:39 Sticks out tongue? Yes 13:54:43 Airway obstruction? Yes COPD 13:54:46 Dentures? Yes OUT 13:54:49 Modified Caleb's test Ulnar < 7 seconds 13:54:51 Patient pain scale 0/10 ?. 13:55:01 IV patent on arrival in left forearm with 0.9% NaCl at [facility]. 13:55:04 Right Radial & Right Groin area was prepped with chlora-prep and draped in sterile fashion 13:55:05 Alarms reviewed by R. N. 13:55:05 Sharps counted by scrub and verified by R.N. 13:55:07 Use device set Radial Dx or PCI 13:55:08 ACIST Syringe (33598) opened to sterile field. 13:55:09 Bag Decanter () opened to sterile field. 13:55:10 ACIST Hand Control (59461) opened to sterile field. 13:55:10 ACIST Manifold (08986) opened to sterile field. 13:55:10 Tegaderm 4 x 4 (1626W) opened to sterile field. 13:55:11 Medline Cath Pack ([id number]) opened to sterile field. 13:55:12 DIAGNOSTIC WIRE .035 260cm J wire (657351) opened to sterile field. 13:55:12 MBrace Wrist Support ([id number]) opened to sterile field. 13:55:14 SHEATH 6FR Slender (97-0257) opened to sterile field. 13:58:32 --------ALL STOP TIME OUT------ 13:58:32 Final Timeout: patient, procedure, and site verified with staff and physician. All members of the team are in agreement. 13:58:34 Right Radial & Right Groin site verified by team. 13:58:38 Physical assessment completed. ASA score P 2 - A patient with mild systemic disease as per Madan Coleman MD. 13:58:40 Sedation plan: IV Moderate Sedation Medication:Versed, Fentanyl 13:58:52 Versed 2 mg I.V. was administered by Zo Galindo RN; for sedation; 13:59:03 Fentanyl 50 mcg I.V. was administered by Zo Galindo RN; for sedation; 14:03:00 Zero performed for pressure channel P1 14:08:24 Versed 2 mg I.V. was administered by Zo Galindo RN; for sedation; 14:08:29 Fentanyl 50 mcg I.V. was administered by Zo Galindo RN; for sedation; 14:14:52 Procedure started. 14:14:59 Local anesthetic to right radial artery with Lidocaine 2% by Madan Coleman MD.INITIAL ACCESS ONLY 14:15:38 A 6 Fr Short sheath was inserted into the Right Radial artery 14:15:59 A DIAGNOSTIC [place] 110cm 5 Fr catheter ([id number]) was advanced over the wire and used for LV Angiography. 14:17:49 LV gram done using VILLALOBOS 14:17:51 Injector settings: Ml/sec: 5, Volume: 15, 14:18:05 LV hemodynamics recorded. 14:18:09 EF : 50 % 14:19:56 A DIAGNOSTIC [place] 110cm 5 Fr catheter ([id number]) was advanced over the wire and used for Left Coronary Angiography. 14:20:02 A DIAGNOSTIC [place] 110cm 5 Fr catheter (745775) was advanced over the wire and used for Right Coronary Angiography. 14:20:08 Use device set MINOA PCI 14:20:21 INFLATOR Merit BirgitCompak (FN4604) opened to sterile field. 14:20:24 WHISPER 300cm guide wire ([id number]) opened to sterile field. 14:20:25 GUIDE 6FR XBLAD 3.5 catheter ([id number]) opened to sterile field. 14:21:07 Catheter removed. 14:21:19 6 Fr XBLAD 3.5 guide catheter was inserted over the wire 14:23:20 Heparin Bolus 4000 units I.V. was administered by Zo Galindo RN; for anticoagulation; verified with Dr. Helton 14:23:38 Integrilin (Bolus 2mg/ml) 6.2 ml I.V. was administered by Zo Galindo RN; for anticoagulation; wasted 3.8mL 14:24:25 WHISPER wire advanced. 14:24:49 Plavix 600 mg P.O. was administered by Zo Galindo RN; for antiplatelet therapy; 14:27:38 Inflate balloon Inflation number: 1 A EMERGE OTW 3.0 x 15 balloon ([id number]) was prepped and advanced across the Mid LAD, then inflated to 12 OMER for 0:27 (min:sec). 14:28:49 Inflation number: 2 The EMERGE OTW 3.0 x 15 balloon ([id number]) was reinflated across the Mid LAD, to 12 OMER for 0:38 (min:sec). 14:30:24 Inflation number: 3 The EMERGE OTW 3.0 x 15 balloon ([id number]) was reinflated across the Mid LAD, to 12 OMER for 0:20 (min:sec). 14:31:09 Inflation number: 4 The EMERGE OTW 3.0 x 15 balloon ([id number]) was reinflated across the Mid LAD, to 14 OMER for 0:22 (min:sec). 14:32:19 Versed 2 mg I.V. was administered by Zo Galindo RN; for sedation; 14:32:42 Wire removed. 14:32:54 CHOICE PT Extra Support J 300cm guide wire ([id number]) opened to sterile field. 14:33:16 CHOICE PT ES wire advanced. 14:34:32 Inflation number: 5 The EMERGE OTW 3.0 x 15 balloon ([id number]) was reinflated across the Mid LAD, to 14 OMER for 0:07 (min:sec). 14:35:15 Inflation number: 6 The EMERGE OTW 3.0 x 15 balloon ([id number]) was reinflated across the Mid LAD, to 8 OMER for 0:19 (min:sec). 14:36:18 Inflation number: 7 The EMERGE OTW 3.0 x 15 balloon ([id number]) was reinflated across the Mid LAD, to 12 OMER for 0:37 (min:sec). 14:37:50 Balloon removed over the wire. 14:39:08 Fentanyl 50 mcg I.V. was administered by Zo Galindo RN; for sedation; 14:40:43 Inflate balloon Inflation number: 8 A EMERGE OTW 2.5 x 20 balloon ([id number]) was prepped and advanced across the Mid LAD, then inflated to 14 OMER for 0:15 (min:sec). 14:42:23 Inflation number: 9 The EMERGE OTW 2.5 x 20 balloon ([id number]) was reinflated across the Mid LAD, to 12 OMER for 1:03 (min:sec). 14:42:29 Balloon removed over the wire. 14:42:33 Fentanyl 50 mcg I.V. was administered by Zo Galindo RN; for sedation; 14:49:02 Place stent Inflation Number: 10 A INTEGRITY OTW 2.5 X 18 stent ([id number]) was prepped and advanced across the Mid LAD. The stent was deployed at 14 OMER for 0:28 (min:sec). 14:51:23 Stent catheter was removed intact over wire. 14:53:34 Inflate balloon Inflation number: 11 A EMERGE OTW 3.0 x 20 balloon ([id number]) was prepped and advanced across the Mid LAD, then inflated to 14 OMER for 0:42 (min:sec). 14:54:06 Balloon removed over the wire. 14:56:52 Versed 2 mg I.V. was administered by Zo Galindo RN; for sedation; 14:59:37 Fentanyl 50 mcg I.V. was administered by Zo Galindo RN; for sedation; 15:01:51 WHISPER 300cm guide wire ([id number]) opened to sterile field. 15:07:07 Heparin Bolus 2000 units I.V. was administered by Zo Galindo RN; for anticoagulation; 15:08:31 UNABLE TO ADVANCE STENT PAST LESION. DISSECTION NOTED. DR HAM CALLED TO PERFORM LASER ATHERECTOMY ON LESION 15:14:58 DR HAM ARRIVED AND SCRUBBED IN. 15:15:10 LASER ELCA 0.9 Rx atherectomy catheter (330075) opened to sterile field. 15:15:55 FAMILY NOTIFIED OF PATIENT STATUS BY ORACIO RAMOS 15:18:57 Laser pass to mLAD with Fluence of 45 and Rate of 25. 15:19:27 Versed 2 mg I.V. was administered by Zo Galindo RN; for sedation; 15:19:28 Laser pass to mLAD with Fluence of 45 and Rate of 25. 15:19:47 Laser pass to mLAD with Fluence of 45 and Rate of 25. 15:20:17 Laser pass to mLAD with Fluence of 45 and Rate of 80. 15:21:02 Laser pass to mLAD with Fluence of 45 and Rate of 80. 15:21:23 Laser pass to mLAD with Fluence of 45 and Rate of 80. 15:21:43 Laser pass to mLAD with Fluence of 45 and Rate of 80. 15:21:54 Fentanyl 25 mcg I.V. was administered by Zo Galindo RN; for sedation; 15:23:19 Laser pass to mLAD with Fluence of 45 and Rate of 80. 15:23:47 Laser pass to mLAD with Fluence of 45 and Rate of 80. 15:23:53 Laser pass to mLAD with Fluence of 45 and Rate of 80. 15:24:13 Laser pass to mLAD with Fluence of 45 and Rate of 80. 15:25:22 Laser catheter removed. 15:27:41 Heparin Bolus 3000 units I.V. was administered by Zo Galindo RN; for anticoagulation; verified with Dr. Helton 15:28:34 The [place] EUPHORA 3.5 x 15 balloon ([id number]) was advanced and then removed because of failure to cross lesion 15:31:00 Inflate balloon Inflation number: 12 A EMERGE OTW 3.5 x 15 balloon ([id number]) was prepped and advanced across the Mid LAD, then inflated to 21 OMER for 0:32 (min:sec). 15:31:49 Fentanyl 25 mcg I.V. was administered by Zo Galindo RN; for sedation; 15:33:00 Wire removed. 15:35:32 Laser total treatment time: 230 minutes 0 seconds 15:35:52 Laser total pulses delivered: 9800 15:41:52 DR PINEDA CONSULTED 15:43:22 Wire removed. 15:44:14 CALL[address] BED. [address] PINEDA TO CABG TOMORROW 15:45:26 Guide catheter removed. 15:45:42 Sheath removed intact; hemostasis achieved with Mechanical Compression to the Right Radial artery. 15:45:48 Procedure ended.(Physican Out) 15:46:54 TR BAND Standard ([id number]) opened to sterile field. 15:47:20 Fluoroscopy time 00.00 minutes. 15:47:24 Flurop Dose total: 2499 15:47:24 Fluoroscopy dose: 2499 mGy 15:47:54 Contrast amount:Isovue 300 182ml. 15:49:08 Heparin Drip (30776toihq/250 D5W) 1000 units/hr I.V. drip was administered by Zo Galindo RN; for anticoagulation; verified with Dr. Helton 15:50:05 Sharps counted by scrub and verified by R.N. 15:50:08 TR band inflated with 12cc of air. 15:50:09 Insertion/operative site no bleeding no hematoma. 15:50:17 Post right radial artery:stable, clean and dry 15:50:19 Post Procedure Pulses reassessed and unchanged 15:50:24 Post-procedure physical assessment completed. ASA score P 2 - A patient with mild systemic disease as per Madan Coleman MD. 15:50:27 Post procedure rhythm: unchanged. 15:50:31 Estimated blood loss: 10 ml 15:50:33 Post procedure instruction explained to patient.Patient verbalizes understanding. 15:50:33 Patient needs reinforcement of post procedure teaching. 15:52:21 Procedure type changed to Cath procedure, Diagnostic procedure, LHC, LHC w/Coronaries, Sedation Charges, Moderate Sedation up to 45 minutes, PCI procedure, Coronary Atherectomy, Atherectomy w/Stent Coronary Initial 15:52:47 Procedure Complication : No complications 15:52:49 See physician's report for complete and final results. 15:54:38 Procedure and supply charges have been captured, reviewed, submitted and are correct. 15:56:48 Vital chart was stopped 15:56:51 Report given to CVICU. 15:56:54 Patient transfered to CVICU with Bed. 15:57:08 Procedure ended. 15:57:08 Full Disclosure recording stopped 15:57:27 End room use (Document Last) Intervention Summary Intervention Notes Time ActionType Lesion and Equipment Action# Pressure Duration Attributes Used 14:27:38 Inflate Mid LAD EMERGE OTW 1 12 00:27 balloon 3.0 x 15 balloon ([id number]) 14:28:49 Reinflate Mid LAD EMERGE OTW 2 12 00:38 balloon 3.0 x 15 balloon ([id number]) 14:30:24 Reinflate Mid LAD EMERGE OTW 3 12 00:20 balloon 3.0 x 15 balloon ([id number]) 14:31:09 Reinflate Mid LAD EMERGE OTW 4 14 00:23 balloon 3.0 x 15 balloon ([id number]) 14:34:32 Reinflate Mid LAD EMERGE OTW 5 14 00:07 balloon 3.0 x 15 balloon ([id number]) 14:35:15 Reinflate Mid LAD EMERGE OTW 6 8 00:19 balloon 3.0 x 15 balloon ([id number]) 14:36:18 Reinflate Mid LAD EMERGE OTW 7 12 00:38 balloon 3.0 x 15 balloon ([id number]) 14:40:43 Inflate Mid LAD EMERGE OTW 8 14 00:15 balloon 2.5 x 20 balloon ([id number]) 14:42:23 Reinflate Mid LAD EMERGE OTW 9 12 01:03 balloon 2.5 x 20 balloon ([id number]) 14:49:02 Place stent Mid LAD INTEGRITY 10 14 00:28 OTW 2.5 X 18 stent ([id number]) 14:53:34 Inflate Mid LAD EMERGE OTW 11 14 00:42 balloon 3.0 x 20 balloon ([id number]) 15:28:34 Discard NC EUPHORA Balloon 3.5 x 15 balloon ([id number]) 15:31:00 Inflate Mid LAD EMERGE OTW 12 21 00:32 balloon 3.5 x 15 balloon ([id number]) Device Usage Item Name Manufacture Quantity Catalog Number Hospital Part Current Min imal Lot# / Charge Number Stock Stock Serial# Code ACIST Acist 1 59406 518549 128177 379431 20 Syringe Medical (36475) Systems Inc Bag Decanter Microtek 1 2001S 623232 17732 085359 5 (2001S) Medical Inc. ACIST Hand Acist 1 52416 044347 399847 172965 5 Control Medical (96523) Systems Inc ACIST Acist 1 64334 272963 390262 983532 5 Manifold Medical (15601) Systems Inc Tegaderm 4 x 3M 1 1626W 426920 757066 200980 5 4 (1626W) Medline Cath Medline 1 [id number] 170737 67644 894017 5 Pack ([id number]) DIAGNOSTIC [facility] [place] 1 362997 475507 463900 667000 30 WIRE .035 260cm J wire (715326) MBrace Wrist Advanced 1 140-0250-00 536673 96544 895529 5 Support Vascular (194751032) Dynamics SHEATH 6FR Terumo 1 [id number] 680020 983517 260363 40 Slender (80-1060) DIAGNOSTIC Terumo 1 40-5013 245709 839498 982411 5 [place] 110cm 5 Fr catheter (110294) INFLATOR [facility] 1 HG6519 218789 737619 845171 15 [facility] Medical BasixCompak (QX9534) WHISPER [place] 2 [id number] 683448 586970 582606 5 300cm guide Vascular wire (5518590QI) GUIDE 6FR Cardinal 1 64608550 713856 191718 054475 10 XBLAD 3.5 Health catheter (81479443) EMERGE OTW [place] 1 [id number] 378153 382184 129339 5 75284028 3.0 x 15 Scientific balloon ([id number]) CHOICE PT [place] 1 [id number] 685533 056582 017321 5 Extra Scientific Support J 300cm guide wire (6980446B6) EMERGE OTW [place] 1 [id number] 782430 746580 816692 5 87576892 2.5 x 20 Scientific balloon ([id number]) INTEGRITY Medtronic 1 [id number] 821999 095684 2 [id number] OTW 2.5 X 18 stent ([id number]) EMERGE OTW [place] 1 [id number] 495545 139529 507880 5 65283648 3.0 x 20 Scientific balloon ([id number]) LASER ELCA Pedro 1 110-004 652095 166477 671712 5 0.9 Rx [facility] atherectomy (448796) catheter (222425) [place] EUPHORA Medtronic 1 [id number] 624756 482503 638459 1 [id number] 3.5 x 15 balloon ([id number]) EMERGE OTW [place] 1 [id number] 619544 250764 613586 5 [id number] 3.5 x 15 Scientific balloon ([id number]) TR BAND Terumo 1 [id number] 065838 941477 831265 40 Standard ([id number]) Signature Audit [place] Stage Time Signature Unsigned Intra-Procedure 04/28/2018 Antonietta Counts 3:59:41 PM RT(R) Signatures Monitor : Eladia Beatty RT Signature : Date : Time : Monitor : Antonietta Counts RT Signature : Date : Time : [address] [place] [address]
--- NOTE | ~2018-04-28 | MORECARE ---
CASE MANAGEMENT DISCHARGE SUMMARY PATIENT: CECY BARRERA UNIT: [id number] ADM DATE: 04/28/18 AGE: 82 : 36 SEX: M ROOM/BED: D.03 AUTHOR: RADHAMES GARZA PHYSICIAN: REFERRING PHYSICIAN: ELIZABETH BERNSTEIN MD DATE OF SERVICE: 05/05/18 Discharge Plan Patient Name: CECY BARRERA Facility: [facility]:[place] : 1935 Planned Disposition: Inpatient Rehab Anticipated Discharge Date: Discharge Date: Expected LOS: Initial Reviewer: [email or web address] Initial Review Date: 05/01/2018 Generated: 05/05/18 8:23 pm Comments DCP- Discharge Planning Updated by [email or web address]: Catherine Light on 05/05/18 6:[address] CM spoke with Sheeba with rehab. Sheeba stated that rehab will accept patient when medically stable. CM will continue to follow and assist with discharge planning / needs DCP- Discharge Planning Updated by [email or web address]: Catherine Light on 05/04/18 9:[address] CM called Dr. Alex Martinez office to find out name of Hospice provider. Patient was admitted to [facility] [phone] on 04/20/18. CM spoke with Hospice and they were aware patient was in hospital for cardiac problems which they said was alright since he was admitted to hospice for COPD. CM explained that patient had a referral for rehab. Hospice stated that if he goes to rehab then he will have to be discharged from their services. CM will continue to follow and assist with discharge planning / needs. DCP- Discharge Planning Updated by [email or web address]: Catherine Light on 05/01/18 12:[address] Patient Name: CECY BARRERA Admission Status: Elective Accout number: [id number] Admission Date: 04-28-2018 : 1935 Admission Diagnosis: Attending: ELIZABETH BERNSTEIN Current LOS: 3 Anticipated DC Date: Planned Disposition: Home with Hospice Primary Insurance: MEDICARE A & B Discharge Planning Comments: CM ATTEMPTED TO MEET WITH PATIENT BUT AT THIS TIME HE CURRENTLY CONFUSED AND AGITATED. CM SPOKE WITH MARIBEL SHIPMAN SISTER -N-LAW. SHE STATES THAT THE PATIENT LIVES ALONE AND THAT HIS A MONTH AGO. MARIBEL STATES THAT THE PATIENT HAS HOSPICE IN HIS HOME BUT DOESN'T KNOW PROVIDER. SHE STATES THAT THEY HAVE PROVIDED HIM WITH HOME 02. CM CALLED DR. KUO OFFICE TO FIND OUT NAME OF HOSPICE PROVIDER. THE OFFICE IS CLOSED TODAY FOR HOLIDAY. MARIBEL IS UNCERTAIN PATIENTS DISCHARGE NEEDS AT THIS TIME. CM WILL CONTINUE TO FOLLOW AND NEEDED WITH DISCHARGE PLANNING / NEEDS. Electro Plater: Catherine Light DCPIA - Discharge Planning Initial Assessment Updated by [email or web address]: Catherine Light on 05/01/18 1:02 pm * Is the patient Alert and Oriented? Yes * How many steps to enter\exit or inside your home? * PCP ALEX MARTINEZ * Preadmission Environment Home Alone * ADLs Independent * Equipment Oxygen * List name and contact numbers for known caregivers / representatives who currently or will assist patient after discharge: MARIBEL - [id number] [phone] * Verbal permission to speak to the caregivers and representatives has been obtained from the patient. N/A * Community resources currently utilized Hospice Home * Please name any agencies selected above. UNKNOWN PROVIDER WILL NEED TO CALL DR. MARTINEZ OFFICE * Additional services required to return to the preadmission environment? No * Can the patient safely return to the preadmission environment? Yes * Has this patient been hospitalized within the prior 30 days at any hospital? No Last DP export: 05/04/18 9:39 Patient Name: CECY BARRERA Page 30079 at 1923 All edits/amendments must be made on the electronic document DICTATION DATE: 05/05/181921 PRODUCTION SUPPORT DEVELOPER: OCTAVIA 05/05/181921 RPT#: [id number] DC DATE: STATUS: ADM IN [facility] [address] [place] [address] END OF REPORT
--- NOTE | ~2018-04-28 | TEE ---
PATIENT:CECY BARRERA MEDICAL RECORD: [id number] LOCATION:[place] [address] AGE OF PATIENT: 82 ADMISSION DATE: 04/28/18 SEX: M REFERRING PHYSICIAN: INTERPRETING PHYSICIAN: FREEMAN HAM MD TRANSESOPHAGEAL ECHOCARDIOGRAM Date: 04/29/18 ELE CHARGE Y INDICATIONS: CABG PREMEDICATIONS: PATIENT'S RESPONSE PROCEDURE DOPPLER MEASUREMENTS: LVIT LA PA RA LVOT RVOT Asc. Ao AV Gradient Peak AV Mean AV Area MV Gradient Peak MV Mean MV Area INTERPRETATION: LVd: 3.7 cm LVs: 1.3 cm Doppler: 2-D: COLOR FLOW DOPPLER NORMAL SALINE STUDY: MISCELLANOUS: DIAGNOSIS: PLAN: Supervisor Hide House:3 Dr. Helton Supervisor Force Adjustment: Radha NAYLOR COMMENTS: DATE OF SERVICE: 04/29/2018 PROCEDURE: Transesophageal echo evaluation of valvular structures during bypass surgery. FINDINGS: 1. Left ventricular chamber size is within normal limits. Left ventricular systolic function is normal. Overall ejection fraction estimated at 50%. 2. Left atrium, right atrium, and right ventricle chamber sizes are within TRANSESOPHAGEAL ECHOCARDIOGRAM REPORT [id number] CECY BARRERA normal limits. 3. Valvular structures have normal structure and motion. 4. Doppler interrogation reveals mild mitral regurgitation, mild tricuspid regurgitation, no other valvular insufficiency or stenosis. 5. No evidence of pericardial effusion or left ventricular thrombus. TRANSINT:[id number] Voice Confirmation ID: [id number] DOCUMENT ID: [id number] at 1704 CC: [id number] DICTATION DATE: 05/04/18 1121 PAGE TECHNICIAN: 05/05/[address] [facility] [address] [place] [address]
--- NOTE | ~2018-04-28 | OP ---
PATIENT NAME: CECY BARRERA MEDICAL RECORD: [id number] :37 LOCATION:[place] [address] ADMISSION DATE:04/28/18 SURGEON: ELIZABETH BERNSTEIN MD DATE OF OPERATION: 04/28/2018 PROCEDURE: Left heart catheterization from a right radial approach. CATHETERS: A 5-Lao sheath, femoral Lukasz, 5/4 pig. The procedure was well tolerated. We proceeded to PTCA and attempted stenting to the LAD. FINDINGS: Left ventriculography in 30-degree VILLALOBOS view: Normal wall motion, normal systolic function. CORONARY ANATOMY: LEFT MAIN: Left main tapers about 40% stenosis. LAD: At its mid portion a better than 90% extremely tight calcific stenosis with HEIDI flow 3 distally. CIRCUMFLEX: Free of disease. RIGHT CORONARY ARTERY: Free of disease. IMPRESSION: Plan PTCA and stenting momentarily. DESCRIPTION: Using indwelling sheath, an XB LAD guide catheter provided excellent guide catheter support. We were able to place a Whisper wire down the tightly occluded LAD, then we placed a 2.5 Alger balloon distal to this lesion itself and using this exchange catheter was exchanged to a PT extra support wire. Multiple balloon inflations were performed at the area of the lesion 2.5, 3, and 3.5 balloons up to increasing atmospheres we were unable to completely eradicate the waist in the lesion. Initial attempts were made with the stent; however, due to the calcific area we were unable to deploy the stent entirely within the lesion itself, however the stent was deployed at [address] Penn was consulted and attempted laser of the lesion itself as well and again I will unable to pass in the high-dense calcific area. Dr. 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 Plan for coronary artery bypass grafting in the a.. TRANSINT:[id number] Voice Confirmation ID: [id number] DOCUMENT ID: [id number] ELIZABETH BERNSTEIN MD at 1303 CC: [id number] DICTATION DATE: 04/28/18 160 FUR CUTTING MACHINE OPERATOR: 04/29/18 0027 ADM IN [facility] [address] [place] [address]
--- NOTE | ~2018-04-28 | MORECARE ---
CASE MANAGEMENT DISCHARGE SUMMARY PATIENT: CECY BARRERA UNIT: [id number] ADM DATE: 04/28/18 AGE: 82 : 36 SEX: M ROOM/BED: D.03 AUTHOR: RADHAMES GARZA PHYSICIAN: REFERRING PHYSICIAN: ELIZABETH BERNSTEIN MD DATE OF SERVICE: 05/04/18 Discharge Plan Patient Name: CECY BARRERA Facility: [facility]:[place] : 1935 Planned Disposition: Home with Hospice Anticipated Discharge Date: Discharge Date: Expected LOS: Initial Reviewer: [email or web address] Initial Review Date: 05/01/2018 Generated: 05/04/18 11:39 am Comments DCP- Discharge Planning Updated by [email or web address]: Catherine Light on 05/04/18 9:[address] CM called Dr. Alex Martinez office to find out name of Hospice provider. Patient was admitted to [facility] [phone] on 04/20/18. CM spoke with Hospice and they were aware patient was in hospital for cardiac problems which they said was alright since he was admitted to hospice for COPD. CM explained that patient had a referral for rehab. Hospice stated that if he goes to rehab then he will have to be discharged from their services. CM will continue to follow and assist with discharge planning / needs. DCP- Discharge Planning Updated by [email or web address]: Catherine Light on 05/01/18 12:[address] Patient Name: CECY BARRERA Admission Status: Elective Accout number: [id number] Admission Date: 04-28-2018 : 1935 Admission Diagnosis: Attending: ELIZABETH BERNSTEIN Current LOS: 3 Anticipated DC Date: Planned Disposition: Home with Hospice Primary Insurance: MEDICARE A & B Discharge Planning Comments: CM ATTEMPTED TO MEET WITH PATIENT BUT AT THIS TIME HE CURRENTLY CONFUSED AND AGITATED. CM SPOKE WITH MARIBEL PATIENTS SISTER -N-LAW. SHE STATES THAT THE PATIENT LIVES ALONE AND THAT HIS A MONTH AGO. MARIBEL STATES THAT THE PATIENT HAS HOSPICE IN HIS HOME BUT DOESN'T KNOW PROVIDER. SHE STATES THAT THEY HAVE PROVIDED HIM WITH HOME 02. CM CALLED DR. KUO OFFICE TO FIND OUT NAME OF HOSPICE PROVIDER. THE OFFICE IS CLOSED TODAY FOR HOLIDAY. MARIBEL IS UNCERTAIN PATIENTS DISCHARGE NEEDS AT THIS TIME. CM WILL CONTINUE TO FOLLOW AND NEEDED WITH DISCHARGE PLANNING / NEEDS. Separator Tender: Catherine JAMESON - Discharge Planning Initial Assessment Updated by [email or web address]: Catherine Light on 05/01/18 1:02 pm * Is the patient Alert and Oriented? Yes * How many steps to enter\exit or inside your home? * PCP ALEX MARTINEZ * Preadmission Environment Home Alone * ADLs Independent * Equipment Oxygen * List name and contact numbers for known caregivers / representatives who currently or will assist patient after discharge: MARIBEL - [id number] [phone] * Verbal permission to speak to the caregivers and representatives has been obtained from the patient. N/A * Community resources currently utilized Hospice Home * Please name any agencies selected above. UNKNOWN PROVIDER WILL NEED TO CALL DR. MARTINEZ OFFICE * Additional services required to return to the preadmission environment? No * Can the patient safely return to the preadmission environment? Yes * Has this patient been hospitalized within the prior 30 days at any hospital? No Last DP export: 05/01/18 12:16 Patient Name: CECY BARRERA Page [id number] at 1039 All edits/amendments must be made on the electronic document DICTATION DATE: 05/04/18 103 FELLER MACHINE OPERATOR: OCTAVIA 05/04/18 1039 RPT#: [id number] DC DATE: STATUS: ADM IN [facility] [address] [place] [address] END OF REPORT
[2018-04-28] MEDS ORDERED: ROXICODONE15 MG PO (11:33)
[2018-04-28] MEDS ORDERED: XANAX0.5 MG PO (11:33)
[2018-04-28] MEDS ORDERED: OMEPRAZOLE20 M1 PO (11:34)
[2018-04-28] MEDS ORDERED: MS CONTIN30 MG PO (11:35)
[2018-04-28] MEDS ORDERED: CIMETIDINE200 MG PO (11:36)
[2018-04-28 11:51] LABS: BASOPHILS 0.2 % (0-2); EOSINOPHILS 0.8 % (0-7); HEMATOCRIT 41.4 % (42.0-54.0); HEMOGLOBIN 13.6 g/dL (13.5-17.5); IMMATURE GRANULOCYTES 0.1 % (0-5); LYMPHOCYTES 10.6 % (15-50); MCH 32.4 pg (26.0-34.0); MCHC 32.9 g/dL (31.0-37.0); MCV 98.6 fL (80.0-100.0); MEAN PLATELET VOLUME 10.2 fL (7.4-10.4); MONOCYTES 4.6 % (2-11); NEUTROPHILS 83.7 % (40-80); PLATELET COUNT 157 10x3/uL (130-400); RDW 13.2 % (11.5-14.5); WBC 8.3 10x3/uL (4.8-10.8)
[2018-04-28 11:57] LABS: ANION GAP 11.7 mmol/L (8-16); CALCIUM 9.1 mg/dL (8.5-10.1); CARBON DIOXIDE 29.9 mmol/L (21.0-32.0); CREATININE - SERUM 1.4 mg/dL (0.6-1.3); POTASSIUM - SERUM 4.6 mmol/L (3.5-5.1)
[2018-04-28 17:25] LABS: BASOPHILS 0.3 % (0-2); EOSINOPHILS 0.1 % (0-7); HEMATOCRIT 37.3 % (42.0-54.0); HEMOGLOBIN 12.1 g/dL (13.5-17.5); IMMATURE GRANULOCYTES 0.1 % (0-5); LYMPHOCYTES 15.2 % (15-50); MCH 31.8 pg (26.0-34.0); MCHC 32.4 g/dL (31.0-37.0); MCV 98.2 fL (80.0-100.0); MEAN PLATELET VOLUME 10.1 fL (7.4-10.4); MONOCYTES 4.7 % (2-11); NEUTROPHILS 79.6 % (40-80); PLATELET COUNT 149 10x3/uL (130-400); WBC 7.1 10x3/uL (4.8-10.8)
[2018-04-28 17:41] LABS: INR 1.17 (0.85-1.17); PROTIME 14.6 SECONDS (11.6-15.0)
[2018-04-28 18:04] LABS: ALBUMIN 3.2 g/dL (3.4-5.0); ANION GAP 9.1 mmol/L (8-16); BILIRUBIN - TOTAL 0.33 mg/dL (0.2-1.3); CALCIUM 8.5 mg/dL (8.5-10.1); CARBON DIOXIDE 30.9 mmol/L (21.0-32.0); CREATININE - SERUM 1.2 mg/dL (0.6-1.3); PHOSPHOROUS 3.8 mg/dL (2.5-4.9); PROTEIN - SERUM 6.9 g/dL (6.4-8.2); T4 THYROXIN - FREE 0.89 ng/dL (0.76-1.46); THYROID STIMULATING HORMONE 0.7 uIU/mL (0.36-3.74); URIC ACID 3.4 mg/dL (2.6-7.2)
[2018-04-28 18:39] LABS: APTT > 200.0 SECONDS (22.8-39.4)
[2018-04-28 19:58] LABS: APPEARANCE CLEAR (CLEAR); BILIRUBIN NEGATIVE (NEGATIVE); COLOR YELLOW (YELLOW); GLUCOSE NEGATIVE (NEGATIVE); KETONE NEGATIVE (NEGATIVE); NITRITE NEGATIVE (NEGATIVE); PROTEIN NEGATIVE (NEGATIVE); UROBILINOGEN NORMAL (NORMAL)
[2018-04-29] VITALS (48 sets, daily range): BP systolic 103–153; BP diastolic 49–88; BMI 20.1
[2018-04-29 08:15] LABS: PLT FUNCT.(P2Y12) PLAVIX 296 PRU (194-418)
[2018-04-29 12:56] LABS: HEMATOCRIT 31.9 % (42.0-54.0); HEMOGLOBIN 10.4 g/dL (13.5-17.5); MCH 31.5 pg (26.0-34.0); MCHC 32.6 g/dL (31.0-37.0); MCV 96.7 fL (80.0-100.0); MEAN PLATELET VOLUME 9.9 fL (7.4-10.4); RBC 3.3 10x6/uL (4.20-6.10)
[2018-04-29 13:01] LABS: CALCIUM 7.7 mg/dL (8.5-10.1); CARBON DIOXIDE 28.3 mmol/L (21.0-32.0); CHLORIDE - SERUM 107 mmol/L (98-107); CREATININE - SERUM 0.9 mg/dL (0.6-1.3); GLUCOSE 161 mg/dL (74-106); SODIUM 141 mmol/L (136-145); eGFR NON AFRICAN AMERICAN 86 mL/min (90-120)
[2018-04-29 13:02] LABS: WBC 12.1 10x3/uL (4.8-10.8)
[2018-04-29 13:03] LABS: CALC OSMOLALITY 286 mosm/kg (275-300); POTASSIUM - SERUM 3.9 mmol/L (3.5-5.1); UREA NITROGEN 22 mg/dL (7-18)
[2018-04-29 13:05] LABS: PROTIME 17.1 SECONDS (11.6-15.0)
[2018-04-29 13:06] LABS: APTT 33.7 SECONDS (22.8-39.4)
[2018-04-29 13:07] LABS: INR 1.43 (0.85-1.17)
[2018-04-30] VITALS (56 sets, daily range): BP systolic 102–140; BP diastolic 45–95
[2018-04-30 05:23] LABS: HEMATOCRIT 29.2 % (42.0-54.0); HEMOGLOBIN 9.6 g/dL (13.5-17.5); MCH 31.7 pg (26.0-34.0); MCHC 32.9 g/dL (31.0-37.0); MCV 96.4 fL (80.0-100.0); MEAN PLATELET VOLUME 10.3 fL (7.4-10.4); RBC 3.03 10x6/uL (4.20-6.10); RDW 13.5 % (11.5-14.5); WBC 10.9 10x3/uL (4.8-10.8)
[2018-04-30 05:50] LABS: ALBUMIN 2.8 g/dL (3.4-5.0); ANION GAP 12.2 mmol/L (8-16); BILIRUBIN - TOTAL 0.61 mg/dL (0.2-1.3); CALCIUM 7.9 mg/dL (8.5-10.1); CARBON DIOXIDE 25.7 mmol/L (21.0-32.0); CREATININE - SERUM 1.1 mg/dL (0.6-1.3); POTASSIUM - SERUM 4.9 mmol/L (3.5-5.1); PROTEIN - SERUM 5.5 g/dL (6.4-8.2)
[2018-05-01] VITALS (24 sets, daily range): BP systolic 92–146; BP diastolic 45–75
[2018-05-01 06:36] LABS: HEMATOCRIT 27.6 % (42.0-54.0); MCH 31.9 pg (26.0-34.0); MCHC 32.6 g/dL (31.0-37.0); MCV 97.9 fL (80.0-100.0); MEAN PLATELET VOLUME 10.4 fL (7.4-10.4); RBC 2.82 10x6/uL (4.20-6.10); RDW 13.6 % (11.5-14.5); WBC 10.6 10x3/uL (4.8-10.8)
[2018-05-01 07:00] LABS: ALBUMIN 2.7 g/dL (3.4-5.0); ANION GAP 9.3 mmol/L (8-16); BILIRUBIN - TOTAL 0.48 mg/dL (0.2-1.3); CARBON DIOXIDE 29.4 mmol/L (21.0-32.0); CREATININE - SERUM 1.1 mg/dL (0.6-1.3); MAGNESIUM - SERUM 2.1 mg/dL (1.8-2.4); PHOSPHOROUS 2.6 mg/dL (2.5-4.9); POTASSIUM - SERUM 4.7 mmol/L (3.5-5.1); PROTEIN - SERUM 5.9 g/dL (6.4-8.2)
[2018-05-02] VITALS (24 sets, daily range): BP systolic 105–166; BP diastolic 52–86
[2018-05-02 05:52] LABS: HEMATOCRIT 26.1 % (42.0-54.0); HEMOGLOBIN 8.5 g/dL (13.5-17.5); MCH 31.7 pg (26.0-34.0); MCHC 32.6 g/dL (31.0-37.0); MCV 97.4 fL (80.0-100.0); MEAN PLATELET VOLUME 10.6 fL (7.4-10.4); RBC 2.68 10x6/uL (4.20-6.10)
[2018-05-02 05:53] LABS: WBC 6.8 10x3/uL (4.8-10.8)
[2018-05-02 06:22] LABS: ALBUMIN 2.5 g/dL (3.4-5.0); BILIRUBIN - TOTAL 0.52 mg/dL (0.2-1.3); CALCIUM 8.1 mg/dL (8.5-10.1); CARBON DIOXIDE 31.5 mmol/L (21.0-32.0); CREATININE - SERUM 1.2 mg/dL (0.6-1.3); PROTEIN - SERUM 6.3 g/dL (6.4-8.2)
[2018-05-02 06:23] LABS: POTASSIUM - SERUM 3.5 mmol/L (3.5-5.1)
[2018-05-03] VITALS (25 sets, daily range): BP systolic 83–155; BP diastolic 39–76
[2018-05-03 05:48] LABS: HEMATOCRIT 25.4 % (42.0-54.0); HEMOGLOBIN 8.2 g/dL (13.5-17.5); MCH 31.5 pg (26.0-34.0); MCHC 32.3 g/dL (31.0-37.0); MCV 97.7 fL (80.0-100.0); MEAN PLATELET VOLUME 10.3 fL (7.4-10.4); RBC 2.6 10x6/uL (4.20-6.10); WBC 6.4 10x3/uL (4.8-10.8)
[2018-05-03 06:20] LABS: ALBUMIN 2.4 g/dL (3.4-5.0); BILIRUBIN - TOTAL 0.55 mg/dL (0.2-1.3); CALCIUM 8.3 mg/dL (8.5-10.1); CREATININE - SERUM 1.1 mg/dL (0.6-1.3); MAGNESIUM - SERUM 1.9 mg/dL (1.8-2.4); PHOSPHOROUS 3.2 mg/dL (2.5-4.9); POTASSIUM - SERUM 3.1 mmol/L (3.5-5.1); PROTEIN - SERUM 6.3 g/dL (6.4-8.2)
[2018-05-03 06:41] LABS: ANION GAP 11.7 mmol/L (8-16); CARBON DIOXIDE 29.4 mmol/L (21.0-32.0)
[2018-05-04] VITALS (29 sets, daily range): BP systolic 87–154; BP diastolic 43–75; Ht 188 cm; Wt 65.4 kg
[2018-05-04 06:45] LABS: HEMATOCRIT 28.3 % (42.0-54.0); MCH 31.8 pg (26.0-34.0); MCHC 31.8 g/dL (31.0-37.0); MEAN PLATELET VOLUME 10.5 fL (7.4-10.4); RBC 2.83 10x6/uL (4.20-6.10); RDW 14.3 % (11.5-14.5)
[2018-05-04 06:46] LABS: WBC 8.7 10x3/uL (4.8-10.8)
[2018-05-04 06:50] LABS: ALBUMIN 2.5 g/dL (3.4-5.0); ANION GAP 12.2 mmol/L (8-16); BILIRUBIN - TOTAL 0.62 mg/dL (0.2-1.3); CALCIUM 8.7 mg/dL (8.5-10.1); CARBON DIOXIDE 26.2 mmol/L (21.0-32.0); CREATININE - SERUM 1.2 mg/dL (0.6-1.3); POTASSIUM - SERUM 3.4 mmol/L (3.5-5.1); PROTEIN - SERUM 6.5 g/dL (6.4-8.2)
[2018-05-05] VITALS (25 sets, daily range): BP systolic 96–134; BP diastolic 43–66
[2018-05-05 06:37] LABS: ANION GAP 11.8 mmol/L (8-16); CALCIUM 8.3 mg/dL (8.5-10.1); CARBON DIOXIDE 25.6 mmol/L (21.0-32.0); CREATININE - SERUM 1.1 mg/dL (0.6-1.3); POTASSIUM - SERUM 3.4 mmol/L (3.5-5.1)
[2018-05-05 07:19] LABS: BASOPHILS 0.1 % (0-2); EOSINOPHILS 0.7 % (0-7); HEMATOCRIT 26.2 % (42.0-54.0); HEMOGLOBIN 8.5 g/dL (13.5-17.5); IMMATURE GRANULOCYTES 0.3 % (0-5); LYMPHOCYTES 8.1 % (15-50); MCH 31.8 pg (26.0-34.0); MCHC 32.4 g/dL (31.0-37.0); MCV 98.1 fL (80.0-100.0); MEAN PLATELET VOLUME 10.2 fL (7.4-10.4); MONOCYTES 11.1 % (2-11); NEUTROPHILS 79.7 % (40-80); PLATELET COUNT 179 10x3/uL (130-400); RBC 2.67 10x6/uL (4.20-6.10); RDW 14.3 % (11.5-14.5); WBC 10.7 10x3/uL (4.8-10.8)
[2018-05-05 12:15] LABS: ANA REFLEX - DIRECT Negative (Negative)
[2018-05-06] VITALS (14 sets, daily range): BP systolic 105–133; BP diastolic 44–66
[2018-05-06 06:33] LABS: BASOPHILS 0.2 % (0-2); EOSINOPHILS 1.2 % (0-7); HEMATOCRIT 25.5 % (42.0-54.0); HEMOGLOBIN 8.2 g/dL (13.5-17.5); IMMATURE GRANULOCYTES 0.4 % (0-5); LYMPHOCYTES 7.4 % (15-50); MCH 31.5 pg (26.0-34.0); MCHC 32.2 g/dL (31.0-37.0); MCV 98.1 fL (80.0-100.0); MEAN PLATELET VOLUME 9.6 fL (7.4-10.4); MONOCYTES 9.2 % (2-11); NEUTROPHILS 81.6 % (40-80); PLATELET COUNT 203 10x3/uL (130-400); RDW 14.6 % (11.5-14.5); WBC 11.3 10x3/uL (4.8-10.8)
[2018-05-06 06:47] LABS: ANION GAP 12.3 mmol/L (8-16); CALCIUM 8.1 mg/dL (8.5-10.1); CARBON DIOXIDE 25.5 mmol/L (21.0-32.0); CREATININE - SERUM 1.2 mg/dL (0.6-1.3); POTASSIUM - SERUM 3.8 mmol/L (3.5-5.1)
[2018-05-06] MEDS ORDERED: ALBUTEROL2.5 MG/3 M INH (11:55)
[2018-05-06] MEDS ORDERED: BROVANA15 MCG/2 M INH (11:55)
[2018-05-06] MEDS ORDERED: HEMOCYTE PLUS C1 CAP PO (11:55)
[2018-05-06] MEDS ORDERED: LOPRESSOR25 MG PO (11:56)
[2018-05-06] MEDS ORDERED: ASPIRIN EC81 M1 PO (11:56)
[2018-05-06] MEDS ORDERED: Percocet-10 PO (11:57)
[2018-05-06] MEDS ORDERED: Potassium Cl oral po PO (11:57)
[2018-05-06] MEDS ORDERED: PULMICORT0.5 MG/21 UPD (11:58)
[2018-05-06] MEDS ORDERED: ROBITUSSIN DM 110 ML PO (11:58)
[2018-05-06] MEDS ORDERED: SINGULAIR10 MG PO (11:58)
[2018-05-06] MEDS ORDERED: TESSALON PERLE100 MG PO (11:58)
[2018-05-06] MEDS ORDERED: COLACE100 MG PO (11:59)
[2018-05-06] MEDS ORDERED: FLORAJEN3 CAPS460 MG PO (11:59)
[2018-05-06] MEDS ORDERED: MAXIPIME 2 GM/D52 G1 IV (12:04)
== END 2018-05-06 15:55 | DRG 231 ==
LOC: D.CATH 11:11 → D.CVICU 11:11 → D.CATH 13:30 → D.CVICU 16:00 → D.CATH 16:01 → D.CVICU 04-30 15:04
PROVIDERS: Internal Medicine Cardiovascular Disease; Internal Medicine Interventional Cardiology; Internal Medicine Pulmonary Disease
PROC: B2111ZZ Fluoroscopy of Multiple Coronary Arteries using Low Osmolar Contrast (ICD-10-PCS; 2018-04-28)
PROC: B2151ZZ Fluoroscopy of Left Heart using Low Osmolar Contrast (ICD-10-PCS; 2018-04-28)
PROC: 4A023N7 Measurement of Cardiac Sampling and Pressure, Left Heart, Percutaneous Approach (ICD-10-PCS; 2018-04-28)
PROC: 02703ZZ Dilation of Coronary Artery, One Artery, Percutaneous Approach (ICD-10-PCS; 2018-04-28 13:30)
PROC: 5A1221Z Performance of Cardiac Output, Continuous (ICD-10-PCS; 2018-04-29)
PROC: 02100ZC Bypass Coronary Artery, One Artery from Thoracic Artery, Open Approach (ICD-10-PCS; principal; 2018-04-29 06:00)
DX: I25.119 Atherosclerotic heart disease of native coronary artery with unspecified angina pectoris (principal); J96.01 Acute respiratory failure with hypoxia; I25.42 Coronary artery dissection; J98.11 Atelectasis; D62 Acute posthemorrhagic anemia; I70.209 Unspecified atherosclerosis of native arteries of extremities, unspecified extremity; J43.9 Emphysema, unspecified; F17.200 Nicotine dependence, unspecified, uncomplicated; K21.9 Gastro-esophageal reflux disease without esophagitis; I10 Essential (primary) hypertension; I65.21 Occlusion and stenosis of right carotid artery; E87.6 Hypokalemia; D69.6 Thrombocytopenia, unspecified; R79.89 Other specified abnormal findings of blood chemistry; G89.29 Other chronic pain

== ENCOUNTER 2018-05-06 12:14 | Inpatient (IN) | payer MEDICARE, OTHER ==
[~2018-05-06] VITALS: Ht 188 cm; Wt 70.3 kg
[~2018-05-06 12:14] MED LIST changes: +ALBUTEROL2.5 MG/3 M INH; +BROVANA15 MCG/2 M INH; +CIMETIDINE200 MG PO; +COLACE100 MG PO; +FLORAJEN3 CAPS460 MG PO; +HEMOCYTE PLUS C1 CAP PO; +LOPRESSOR25 MG PO; +MAXIPIME 2 GM/D52 G1 IV; +MS CONTIN30 MG PO; +PULMICORT0.5 MG/21 UPD; +Percocet-10 PO; +Potassium Cl oral po PO; +ROBITUSSIN DM 110 ML PO; +ROXICODONE15 MG PO; +SINGULAIR10 MG PO; +TESSALON PERLE100 MG PO
[2018-05-06 19:10] VITALS: BP 119/60
[2018-05-06 20:06] VITALS: BP 128/56; BMI 19.9
[2018-05-07 05:17] LABS: BASOPHILS 0.3 % (0-2); EOSINOPHILS 3.5 % (0-7); HEMATOCRIT 24.5 % (42.0-54.0); HEMOGLOBIN 7.8 g/dL (13.5-17.5); IMMATURE GRANULOCYTES 0.4 % (0-5); LYMPHOCYTES 12.5 % (15-50); MCH 31.3 pg (26.0-34.0); MCHC 31.8 g/dL (31.0-37.0); MCV 98.4 fL (80.0-100.0); MEAN PLATELET VOLUME 10.1 fL (7.4-10.4); MONOCYTES 11.5 % (2-11); NEUTROPHILS 71.8 % (40-80); RBC 2.49 10x6/uL (4.20-6.10); RDW 14.9 % (11.5-14.5); WBC 11.3 10x3/uL (4.8-10.8)
[2018-05-07 05:23] LABS: PLATELET COUNT 244 10x3/uL (130-400)
[2018-05-07 05:55] LABS: ANION GAP 11.4 mmol/L (8-16); CALCIUM 8.1 mg/dL (8.5-10.1); CARBON DIOXIDE 26.5 mmol/L (21.0-32.0); CREATININE - SERUM 1.3 mg/dL (0.6-1.3); POTASSIUM - SERUM 3.9 mmol/L (3.5-5.1)
[2018-05-07 08:00] VITALS: BP 118/51
[2018-05-07 10:49] VITALS: Ht 188 cm; Wt 70.3 kg
[2018-05-07 19:15] VITALS: BP 125/53
[2018-05-08 06:11] LABS: BASOPHILS 0.2 % (0-2); EOSINOPHILS 3.4 % (0-7); HEMATOCRIT 26.2 % (42.0-54.0); HEMOGLOBIN 8.3 g/dL (13.5-17.5); IMMATURE GRANULOCYTES 0.6 % (0-5); LYMPHOCYTES 14.9 % (15-50); MCH 31.4 pg (26.0-34.0); MCHC 31.7 g/dL (31.0-37.0); MCV 99.2 fL (80.0-100.0); MEAN PLATELET VOLUME 9.7 fL (7.4-10.4); MONOCYTES 10.6 % (2-11); NEUTROPHILS 70.3 % (40-80); PLATELET COUNT 288 10x3/uL (130-400); RBC 2.64 10x6/uL (4.20-6.10); RDW 15.2 % (11.5-14.5); WBC 9.7 10x3/uL (4.8-10.8)
[2018-05-08 06:18] LABS: ANION GAP 13.2 mmol/L (8-16); CALCIUM 8.1 mg/dL (8.5-10.1); CARBON DIOXIDE 25.8 mmol/L (21.0-32.0); CREATININE - SERUM 1.1 mg/dL (0.6-1.3)
[2018-05-08 08:00] VITALS: BP 123/59
[2018-05-08 19:00] VITALS: BP 138/60
[2018-05-09 08:00] VITALS: BP 119/57
[2018-05-09 22:16] VITALS: BP 107/51
[2018-05-10 08:00] VITALS: BP 112/52
[2018-05-10 19:30] VITALS: BP 118/46
[2018-05-11 06:41] LABS: BASOPHILS 0.2 % (0-2); EOSINOPHILS 2.8 % (0-7); HEMATOCRIT 26.4 % (42.0-54.0); HEMOGLOBIN 8.2 g/dL (13.5-17.5); IMMATURE GRANULOCYTES 0.7 % (0-5); LYMPHOCYTES 15.2 % (15-50); MCH 30.9 pg (26.0-34.0); MCHC 31.1 g/dL (31.0-37.0); MCV 99.6 fL (80.0-100.0); MEAN PLATELET VOLUME 9.7 fL (7.4-10.4); MONOCYTES 7.8 % (2-11); NEUTROPHILS 73.3 % (40-80); PLATELET COUNT 342 10x3/uL (130-400); RBC 2.65 10x6/uL (4.20-6.10); RDW 14.7 % (11.5-14.5); WBC 12.1 10x3/uL (4.8-10.8)
[2018-05-11 06:54] LABS: CALC OSMOLALITY 282 mosm/kg (275-300); CALCIUM 8.2 mg/dL (8.5-10.1); CARBON DIOXIDE 28.6 mmol/L (21.0-32.0); CHLORIDE - SERUM 102 mmol/L (98-107); GLUCOSE 121 mg/dL (74-106); POTASSIUM - SERUM 4.6 mmol/L (3.5-5.1); SODIUM 138 mmol/L (136-145); UREA NITROGEN 28 mg/dL (7-18); eGFR NON AFRICAN AMERICAN 76 mL/min (90-120)
[2018-05-11 12:53] VITALS: BP 114/50
[2018-05-11 19:15] VITALS: BP 101/48
[2018-05-12 08:18] VITALS: BP 110/52
[2018-05-12 21:55] VITALS: BP 128/58
[2018-05-13 06:07] LABS: BASOPHILS 0.2 % (0-2); HEMATOCRIT 26.9 % (42.0-54.0); HEMOGLOBIN 8.3 g/dL (13.5-17.5); IMMATURE GRANULOCYTES 0.4 % (0-5); LYMPHOCYTES 15.5 % (15-50); MCH 31.2 pg (26.0-34.0); MCHC 30.9 g/dL (31.0-37.0); MCV 101.1 fL (80.0-100.0); MEAN PLATELET VOLUME 9.6 fL (7.4-10.4); MONOCYTES 9.9 % (2-11); PLATELET COUNT 351 10x3/uL (130-400); RBC 2.66 10x6/uL (4.20-6.10); RDW 14.5 % (11.5-14.5); WBC 11.7 10x3/uL (4.8-10.8)
[2018-05-13 06:48] LABS: CALC OSMOLALITY 279 mosm/kg (275-300); CALCIUM 8.5 mg/dL (8.5-10.1); CARBON DIOXIDE 31.3 mmol/L (21.0-32.0); CHLORIDE - SERUM 101 mmol/L (98-107); CREATININE - SERUM 0.9 mg/dL (0.6-1.3); GLUCOSE 102 mg/dL (74-106); SODIUM 138 mmol/L (136-145); UREA NITROGEN 24 mg/dL (7-18); eGFR NON AFRICAN AMERICAN 86 mL/min (90-120)
[2018-05-13 06:49] LABS: POTASSIUM - SERUM 5.6 mmol/L (3.5-5.1)
[2018-05-13 08:00] VITALS: BP 95/40
[2018-05-13 19:00] VITALS: BP 105/47
[2018-05-14 07:59] VITALS: BP 99/49
[2018-05-14 19:00] VITALS: BP 111/70
[2018-05-15 06:08] LABS: BASOPHILS 0.4 % (0-2); EOSINOPHILS 2.9 % (0-7); HEMATOCRIT 25.1 % (42.0-54.0); HEMOGLOBIN 7.9 g/dL (13.5-17.5); IMMATURE GRANULOCYTES 0.3 % (0-5); LYMPHOCYTES 18.5 % (15-50); MCH 31.5 pg (26.0-34.0); MCHC 31.5 g/dL (31.0-37.0); MEAN PLATELET VOLUME 9.4 fL (7.4-10.4); NEUTROPHILS 66.9 % (40-80); PLATELET COUNT 316 10x3/uL (130-400); RBC 2.51 10x6/uL (4.20-6.10); RDW 14.3 % (11.5-14.5)
[2018-05-15 07:00] LABS: CALCIUM 7.8 mg/dL (8.5-10.1); CARBON DIOXIDE 31.9 mmol/L (21.0-32.0); CREATININE - SERUM 1.1 mg/dL (0.6-1.3); POTASSIUM - SERUM 4.9 mmol/L (3.5-5.1)
[2018-05-15 08:00] VITALS: BP 94/37
[2018-05-15 19:44] VITALS: BP 115/51
[2018-05-15 20:15] VITALS: BP 123/62
[2018-05-16 08:00] VITALS: BP 106/47
[2018-05-16 09:19] LABS: BASOPHILS 0.4 % (0-2); EOSINOPHILS 2.3 % (0-7); IMMATURE GRANULOCYTES 0.3 % (0-5); LYMPHOCYTES 12.2 % (15-50); MCHC 32.1 g/dL (31.0-37.0); MCV 99.7 fL (80.0-100.0); MEAN PLATELET VOLUME 9.3 fL (7.4-10.4); MONOCYTES 10.8 % (2-11); PLATELET COUNT 291 10x3/uL (130-400); RDW 14.8 % (11.5-14.5); WBC 9.7 10x3/uL (4.8-10.8)
[2018-05-16 09:20] LABS: HEMATOCRIT 30.5 % (42.0-54.0); HEMOGLOBIN 9.8 g/dL (13.5-17.5); RBC 3.06 10x6/uL (4.20-6.10)
[2018-05-16 20:00] VITALS: BP 124/55
[2018-05-17 08:00] VITALS: BP 116/49
[2018-05-17 19:55] VITALS: BP 122/56
[2018-05-18 06:23] LABS: HEMATOCRIT 30.6 % (42.0-54.0); HEMOGLOBIN 9.6 g/dL (13.5-17.5); IMMATURE GRANULOCYTES 0.3 % (0-5); MCH 31.2 pg (26.0-34.0); MCHC 31.4 g/dL (31.0-37.0); MCV 99.4 fL (80.0-100.0); MEAN PLATELET VOLUME 9.4 fL (7.4-10.4); PLATELET COUNT 277 10x3/uL (130-400); RBC 3.08 10x6/uL (4.20-6.10); RDW 14.4 % (11.5-14.5); WBC 7.4 10x3/uL (4.8-10.8)
[2018-05-18 06:36] LABS: CALC OSMOLALITY 279 mosm/kg (275-300); CALCIUM 7.9 mg/dL (8.5-10.1); CARBON DIOXIDE 31.8 mmol/L (21.0-32.0); CHLORIDE - SERUM 101 mmol/L (98-107); GLUCOSE 105 mg/dL (74-106); POTASSIUM - SERUM 4.4 mmol/L (3.5-5.1); SODIUM 138 mmol/L (136-145); UREA NITROGEN 25 mg/dL (7-18); eGFR NON AFRICAN AMERICAN 76 mL/min (90-120)
[2018-05-18 06:41] LABS: NEUTROPHILS 44 % (40-80)
[2018-05-18 06:42] LABS: LYMPHOCYTES 48 % (15-50); MONOCYTES 7 % (2-11)
[2018-05-18 06:56] LABS: BASOPHILS 0.3 % (0-2)
[2018-05-18 08:25] VITALS: BP 102/48
[2018-05-18 19:48] VITALS: BP 129/62
[2018-05-19 08:00] VITALS: BP 109/50
[2018-05-19] MEDS ORDERED: LEXAPRO10 MG PO (09:17)
[2018-05-19] MEDS ORDERED: oxyCODONE IR PO (09:17)
[2018-05-19] MEDS ORDERED: LASIX20 MG PO (09:17)
== END 2018-05-19 12:50 | disposition home health service (06) | DRG 91 ==
LOC: D.REHAB 12:14
PROVIDERS: Emergency Medicine
DX: G72.81 Critical illness myopathy (principal); J96.01 Acute respiratory failure with hypoxia; J15.6 Pneumonia due to other Gram-negative bacteria; J44.1 Chronic obstructive pulmonary disease with (acute) exacerbation; J98.11 Atelectasis; D62 Acute posthemorrhagic anemia; R13.13 Dysphagia, pharyngeal phase; I25.119 Atherosclerotic heart disease of native coronary artery with unspecified angina pectoris; I70.219 Atherosclerosis of native arteries of extremities with intermittent claudication, unspecified extremity; I65.21 Occlusion and stenosis of right carotid artery; G89.4 Chronic pain syndrome; K59.00 Constipation, unspecified; I48.91 Unspecified atrial fibrillation; F17.200 Nicotine dependence, unspecified, uncomplicated; D69.6 Thrombocytopenia, unspecified

== ENCOUNTER 2018-09-22 14:46 | Inpatient (IN) | payer MEDICARE, OTHER ==
[~2018-09-22] VITALS: Ht 188 cm; Wt 75.4 kg
[2018-09-22] VITALS (9 sets, daily range): BP systolic 112–140; BP diastolic 61–74; BMI 21.3
[~2018-09-22 14:46] MED LIST changes: +LASIX20 MG PO; +LEXAPRO10 MG PO; +oxyCODONE IR PO
[2018-09-22 16:31] LABS: BASOPHILS 0.2 % (0-2); EOSINOPHILS 5.3 % (0-7); HEMATOCRIT 36.8 % (42.0-54.0); HEMOGLOBIN 12.2 g/dL (13.5-17.5); IMMATURE GRANULOCYTES 0.2 % (0-5); LYMPHOCYTES 19.4 % (15-50); MCH 31.3 pg (26.0-34.0); MCHC 33.2 g/dL (31.0-37.0); MCV 94.4 fL (80.0-100.0); MEAN PLATELET VOLUME 9.6 fL (7.4-10.4); MONOCYTES 8.8 % (2-11); NEUTROPHILS 66.1 % (40-80); RDW 13.1 % (11.5-14.5); WBC 9.1 10x3/uL (4.8-10.8)
[2018-09-22 16:37] LABS: PLATELET COUNT 137 10x3/uL (130-400)
[2018-09-22 16:47] LABS: APTT 31.4 SECONDS (22.8-39.4); INR 1.16 (0.85-1.17); PROTIME 14.3 SECONDS (11.6-15.0)
[2018-09-22 16:53] LABS: ALBUMIN 3.2 g/dL (3.4-5.0); ALKALINE PHOSPHATASE 82 U/L (46-116); ALT (SGPT) 15 U/L (10-68); BILIRUBIN - TOTAL 0.54 mg/dL (0.2-1.3); CALC OSMOLALITY 282 mosm/kg (275-300); CALCIUM 8.4 mg/dL (8.5-10.1); CARBON DIOXIDE 29.5 mmol/L (21.0-32.0); CHLORIDE - SERUM 102 mmol/L (98-107); CREATININE - SERUM 1.7 mg/dL (0.6-1.3); GLUCOSE 111 mg/dL (74-106); POTASSIUM - SERUM 4.5 mmol/L (3.5-5.1); PROTEIN - SERUM 7.4 g/dL (6.4-8.2); SODIUM 137 mmol/L (136-145); UREA NITROGEN 34 mg/dL (7-18); eGFR NON AFRICAN AMERICAN 41 mL/min (90-120)
[2018-09-22 17:05] LABS: APPEARANCE CLEAR (CLEAR); BILIRUBIN NEGATIVE (NEGATIVE); COLOR YELLOW (YELLOW); GLUCOSE NEGATIVE (NEGATIVE); KETONE NEGATIVE (NEGATIVE); NITRITE NEGATIVE (NEGATIVE); PROTEIN NEGATIVE (NEGATIVE); UROBILINOGEN NORMAL (NORMAL)
[2018-09-22 17:06] LABS: CKMB 1.2 U/L (0.0-3.6); CREATINE KINASE 104 UL (21-232); MAGNESIUM - SERUM 2.2 mg/dL (1.8-2.4); THYROID STIMULATING HORMONE 2.52 uIU/mL (0.36-3.74)
[2018-09-22 17:07] LABS: TROPONIN-I < 0.017 ng/mL (0.000-0.060)
[2018-09-22 17:19] LABS: UDS - AMPHET NEGATIVE QUAL (NEGATIVE); UDS - BARB NEGATIVE QUAL (NEGATIVE); UDS - BENZO POSITIVE QUAL (NEGATIVE); UDS - COCAINE NEGATIVE QUAL (NEGATIVE); UDS - OPIATE POSITIVE QUAL (NEGATIVE); UDS - PCP NEGATIVE QUAL (NEGATIVE); UDS - THC NEGATIVE QUAL (NEGATIVE)
--- NOTE | 2018-09-22 18:38 | NUR ---
1839 REPORT RECIEVED FROM ER AND PT BROUGHT TO ROOM 2315.. PT IS AWAKE AND ALERT VERY TALKATIVE .. HE IS SOMEWHAT CONFUSED TO TIME, HE IS AWARE HOWEVER THAT HE IS NOT ABLE TO RECALL .. THERE IS A PIV IN THE LEFT FOREARM NS AT KVO.. AFIB ON CM BP 140/74 O2 4 LITERS NC SAT 91%.. HE DOES STATE AT THIS TIME HE IS NOT DIZZY HE HAS BEEN AND DOES NOT RECOLLECT FALLING AND HITTING HIS HEAD STATES HE HAS FALLEN BUT HIT HIS ELBOW WHERE THERE IS A BRUISE... THERE IS NO BRUISING NOTED ON HIS HEAD..
--- NOTE | 2018-09-22 19:40 | NUR ---
PT AOX3, DISORIENTED TO TIME. PUPILS EQUAL AND REACTIVE. CERTIFIED DIETARY MANAGER EQUAL, TONGUE MIDLINE. DENIES PAIN AT THIS TIME. RESPIRATIONS SHALLOW, LUNG SOUNDS DIMINISHED. S1S2 HEARD, HR 71. BOWEL SOUNDS ACTIVE IN ALL QUADRANTS. LT ELBOW WITH SORE/BRUISING NOTED. VSS. FRESH WATER TO BEDSIDE. REPOSITIONS SELF INDEPENDENTLY. DENIES FURTHER NEEDS AT THIS TIME. CALL LIGHT AND BEDSIDE TABLE WITHIN PT REACH. CPOC.
--- NOTE | 2018-09-22 20:00 | NUR ---
FAMILY AT BEDSIDE, QUESTIONS ANSWERED AND UPDATE PROVIDED. DENIES NEEDS. CALL LIGHT WITHIN PT REACH. CPOC.
--- NOTE | 2018-09-22 21:40 | NUR ---
CONTACTED JANNIE PER DR. LOPEZ REGARDING ABX ORDERS, PER JANNIE NO NEW ORDERS AT THIS TIME, NO ABX ORDERS AT THIS TIME.
--- NOTE | 2018-09-22 22:11 | NUR ---
PT REPOSITIONED FOR COMFORT WITH PARTIAL LINEN CHANGE COMPLETE. VSS, ROOM VISIBLE FROM NURSES STATION. CPOC.
--- NOTE | 2018-09-22 23:30 | MORECARE ---
CASE MANAGEMENT DISCHARGE SUMMARY PATIENT: CECY BARRERA UNIT: [id number] ADM DATE: 09/22/18 AGE: 83 : 36 SEX: M ROOM/BED: D.2315 AUTHOR: RADHAMES GARZA PHYSICIAN: REFERRING PHYSICIAN: DC VALDERRAMA MD DATE OF SERVICE: 09/22/18 Discharge Plan Patient Name: CECY BARRERA [facility] [facility] 1935 Planned Disposition: Home Anticipated Discharge Date: Discharge Date: Expected LOS: Initial Reviewer: [email or web address] Initial Review Date: 09/22/2018 Generated: 09/23/18 12:30 am DCPIA - Discharge Planning Initial Assessment Updated by [email or web address]: Catherine Light on 09/22/18 11:29 pm * Is the patient Alert and Oriented? Yes * How many steps to enter\exit or inside your home? * PCP Juan * Pharmacy [facility] * Preadmission Environment Home Alone * ADLs Independent * Other Equipment WALKER, CANE, WHEELCHAIR, HOME 02 * List name and contact numbers for known caregivers / representatives who currently or will assist patient after discharge: FRANKI BARRERA - GRAND-DAUGHTER [phone] * Verbal permission to speak to the caregivers and representatives has been obtained from the patient. N/A * Community resources currently utilized None * Additional services required to return to the preadmission environment? No * Can the patient safely return to the preadmission environment? Yes * Has this patient been hospitalized within the prior 30 days at any hospital? No Patient Name: CECY BARRERA Page 00103 at 2330 All edits/amendments must be made on the electronic document DICTATION DATE: 09/22/182329 TIRE ROOM SUPERVISOR: OCTAVIA 09/22/182329 RPT#: [id number] DC DATE: STATUS: ADM IN [facility] [address] [place] [address] END OF REPORT
--- NOTE | 2018-09-22 23:37 | MORECARE ---
CASE MANAGEMENT DISCHARGE SUMMARY PATIENT: CECY BARRERA UNIT: [id number] ADM DATE: 09/22/18 AGE: 83 : 36 SEX: M ROOM/BED: D.2315 AUTHOR: KAYLA,DOC PHYSICIAN: REFERRING PHYSICIAN: DC VALDERRAMA MD DATE OF SERVICE: 09/22/18 Discharge Plan Patient Name: CECY BARRERA Facility: [facility]:[place] : 1935 Planned Disposition: Home Anticipated Discharge Date: Discharge Date: Expected LOS: Initial Reviewer: [email or web address] Initial Review Date: 09/22/2018 Generated: 09/23/18 12:37 am Comments DCP- Discharge Planning Updated by [email or web address]: Catherine Light on 09/22/18 10:[address] Patient Name: CECY BARRERA Admission Status: ER Accout number: [id number] Admission Date: 09-22-2018 : 1935 Admission Diagnosis: Attending: CD VALDERRAMA Current LOS: 1 Anticipated DC Date: Planned Disposition: Home Primary Insurance: MEDICARE A & B Discharge Planning Comments: CM met with patient at bedside after explaining CM role and obtaining verbal consent. Patient lives at home alone and plans to return there upon discharge. Patient feels this would be a safe discharge. CM discussed availability / needs of home health and medical equipment. Patient denies any discharge needs at this time. Patient states he will have his family drive him home upon discharge. CM will continue to follow and assist as needed with discharge planning / needs. Fiberglass Boat Builder: Catherine Light DCPIA - Discharge Planning Initial Assessment Updated by [email or web address]: Catherine Light on 09/22/18 11:29 pm * Is the patient Alert and Oriented? Yes * How many steps to enter\exit or inside your home? * PCP Juan * [facility]acy [facility] * Preadmission Environment Home Alone * ADLs Independent * Other Equipment WALKER, CANE, WHEELCHAIR, HOME 02 * List name and contact numbers for known caregivers / representatives who currently or will assist patient after discharge: FRANKI BARRERA - GRAND-DAUGHTER [phone] * Verbal permission to speak to the caregivers and representatives has been obtained from the patient. N/A * Community resources currently utilized None * Additional services required to return to the preadmission environment? No * Can the patient safely return to the preadmission environment? Yes * Has this patient been hospitalized within the prior 30 days at any hospital? No Last DP export: 09/22/18 10:30 p Patient Name: CECY BARRERA Page 08795 at 2337 All edits/amendments must be made on the electronic document DICTATION DATE: 09/22/182336 CLINICAL STAFF ANESTHESIOLOGIST: OCTAVIA 09/22/182336 RPT#: [id number] DC DATE: STATUS: ADM IN [facility] [address] [place] [address] END OF REPORT
[2018-09-23] VITALS (24 sets, daily range): BP systolic 110–155; BP diastolic 55–97; Ht 188 cm; Wt 75.4 kg
--- NOTE | 2018-09-23 | NUR ---
NEURO WNL, PT AWAKENS EASILY, VSS. DENIES NEEDS. C/L IN REACH.
--- NOTE | 2018-09-23 02:00 | NUR ---
NEURO WNL. PT VOIDED 500ML CLEAR, YELLOW URINE IN URINAL.
--- NOTE | 2018-09-23 03:33 | NUR ---
REASSESSMENT PER FLOWSHEET, NO ACUTE CHANGES. PT DENIES PAIN OR NEEDS.
[2018-09-23 04:28] LABS: BASOPHILS 0 % (0-2); EOSINOPHILS 0 % (0-7); HEMATOCRIT 34.6 % (42.0-54.0); HEMOGLOBIN 11.5 g/dL (13.5-17.5); IMMATURE GRANULOCYTES 0.2 % (0-5); LYMPHOCYTES 11.6 % (15-50); MCH 31.1 pg (26.0-34.0); MCHC 33.2 g/dL (31.0-37.0); MCV 93.5 fL (80.0-100.0); MEAN PLATELET VOLUME 9.8 fL (7.4-10.4); MONOCYTES 2.4 % (2-11); NEUTROPHILS 85.8 % (40-80); PLATELET COUNT 144 10x3/uL (130-400); RDW 12.7 % (11.5-14.5)
[2018-09-23 04:57] LABS: WBC 4.7 10x3/uL (4.8-10.8)
[2018-09-23 04:59] LABS: ALBUMIN 2.9 g/dL (3.4-5.0); ANION GAP 10.5 mmol/L (8-16); BILIRUBIN - TOTAL 0.59 mg/dL (0.2-1.3); CALCIUM 8.2 mg/dL (8.5-10.1); CARBON DIOXIDE 28.4 mmol/L (21.0-32.0); CREATININE - SERUM 1.3 mg/dL (0.6-1.3); POTASSIUM - SERUM 4.9 mmol/L (3.5-5.1); PROTEIN - SERUM 7.1 g/dL (6.4-8.2)
--- NOTE | 2018-09-23 05:15 | NUR ---
AM LAB WNL. PT WATCHING TV, DENIES NEEDS. C/L IN REACH.
--- NOTE | 2018-09-23 07:15 | NUR ---
REPORT RECIEVED, SHIFT ASSESSMENT COMPLETE, PT IS ALERT AND ORIENTED, ON 4L NC, ALL PPP, VSS, CALL LIGHT IN REACH
--- NOTE | 2018-09-23 07:51 | NUR ---
DR. ROSS AT BEDSIDE, UPDATE GIVEN, NEW ORDERS RECIEVED,
--- NOTE | 2018-09-23 10:52 | NUR ---
PT AT BEDSIDE, PT WALKED HALF WAY AROUND UNIT, TOLERATED WELL
--- NOTE | 2018-09-23 13:00 | NUR ---
PT RESTING AT THIS TIME, NO NEEDS NOTED, WILL CON'T TO MONITOR
--- NOTE | 2018-09-23 15:00 | NUR ---
REASSESSMENT COMPLETE, NO CHANGES NOTED, WILL CON'T TO MONITOR
--- NOTE | 2018-09-23 17:05 | NUR ---
SUPPER TRAY GIVEN, PT C/O OF LEG PAIN, PRN PAIN MED GIVEN
[2018-09-23] MEDS ORDERED: XANAX1 MG PO (19:27)
--- NOTE | 2018-09-23 19:30 | NUR ---
REC'D TO CARE, MONKEY BREEDER PER FLOWSHEET. PT AWAKE AND ORIENTED. VSS. PT REPORT CHRONIC LEG PAIN - VERBALIZES UNDERSTANDING OF PRN PAIN MEDS - REPOSITIONS SELF NEEDED. NEURO WNL. DENIES NEEDS AT THIS TIME. ALARMS ON AND C/L IN USE.
--- NOTE | 2018-09-23 19:40 | NUR ---
PT REQUESTS "MY PILL FOR SLEEP". DR. VALDERRAMA NOTIFIED AND NEW ORDER FOR HOME MED XANAX REC'D.
[2018-09-23] MEDS ORDERED: PROSCAR5 MG PO (21:34)
[2018-09-23] MEDS ORDERED: FLOMAX0.4 MG PO (21:35)
--- NOTE | 2018-09-23 21:35 | NUR ---
FAMILY AT BS, THEY BROUGHT PICTURES OF HOME MED BOTTLES FROM PT HOUSE. HOME MED LIST UPDATED.
[2018-09-23] MEDS ORDERED: ROXICODONE15 MG PO (21:36)
--- NOTE | 2018-09-23 23:35 | NUR ---
REASSESSMENT PER FLOWSHEET, NO ACUTE CHANGES. L ARM PIV LEAKING, D/C'D INTACT. REPORTS ADEQUATE PAIN RELIEF. ALARMS ON AND C/L IN REACH.
[2018-09-24] VITALS (9 sets, daily range): BP systolic 118–151; BP diastolic 55–88
--- NOTE | 2018-09-24 01:00 | NUR ---
RESTING WITH EYES CLOSED, VSS. C/L IN REACH.
--- NOTE | 2018-09-24 03:10 | NUR ---
PT OUT OF BED, CONFUSED, PULLED IV APART, CATHETER STILL INTACT. PT INCONT OF URINE. PT CLEANED UP, ASSISTED TO BED. JEANS PLACE IN BELONGINGS BAG. PT AWARE THAT HE WAS CONFUSED, NOW ORIENTED AND COOPERATIVE. WILL CONT CLOSE MONITORING.
--- NOTE | 2018-09-24 03:36 | NUR ---
REASSESSMENT PER FLOWSHEET. PT RESTING QUIETLY, VSS. NO CONFUSION. ALARMS ON AND C/L IN REACH.
[2018-09-24 04:08] LABS: BASOPHILS 0 % (0-2); EOSINOPHILS 0 % (0-7); HEMATOCRIT 34.2 % (42.0-54.0); HEMOGLOBIN 11.4 g/dL (13.5-17.5); IMMATURE GRANULOCYTES 0.3 % (0-5); LYMPHOCYTES 7.9 % (15-50); MCH 31.1 pg (26.0-34.0); MCHC 33.3 g/dL (31.0-37.0); MCV 93.4 fL (80.0-100.0); MEAN PLATELET VOLUME 10.1 fL (7.4-10.4); MONOCYTES 3.9 % (2-11); NEUTROPHILS 87.9 % (40-80); RBC 3.66 10x6/uL (4.20-6.10); RDW 13.1 % (11.5-14.5)
[2018-09-24 04:13] LABS: PLATELET COUNT 173 10x3/uL (130-400)
[2018-09-24 04:26] LABS: ALBUMIN 2.9 g/dL (3.4-5.0); ANION GAP 15.2 mmol/L (8-16); BILIRUBIN - TOTAL 0.35 mg/dL (0.2-1.3); CALCIUM 8.2 mg/dL (8.5-10.1); CARBON DIOXIDE 24.9 mmol/L (21.0-32.0); CREATININE - SERUM 1.3 mg/dL (0.6-1.3); POTASSIUM - SERUM 4.1 mmol/L (3.5-5.1); PROTEIN - SERUM 6.9 g/dL (6.4-8.2)
--- NOTE | 2018-09-24 07:10 | NUR ---
REPORT RECIEVED, SHIFT ASSESSMENT COMPLETE, PT IS ALERT AND ORIENTED, ON 2L NC WITH 975 O2 SAT. ALL PPP, VSS, CALL LIGHT IN REACH
--- NOTE | 2018-09-24 08:45 | NUR ---
UPDATE GIVEN TO DR. ROSS, DISCHARGE ORDERS RECIEVED,
--- NOTE | 2018-09-24 09:22 | NUR ---
PT DC'D AT THIS TIME VIA WHEELCHAIR
--- NOTE | 2018-09-25 09:42 | MORECARE ---
CASE MANAGEMENT DISCHARGE SUMMARY PATIENT: CECY BARRERA UNIT: [id number] ADM DATE: 09/22/18 AGE: 83 : 36 SEX: M ROOM/BED: D.2315 AUTHOR: KAYLA,DOC PHYSICIAN: REFERRING PHYSICIAN: DC VALDERRAMA MD DATE OF SERVICE: 09/25/18 Discharge Plan Patient Name: CECY BARRERA Facility: [facility]:[place] : 1935 Planned Disposition: Home Anticipated Discharge Date: 09/24/18 Discharge Date: 09/24/2018 Expected LOS: 2 Initial Reviewer: [email or web address] Initial Review Date: 09/22/2018 Generated: 09/25/18 10:42 am Comments DCP- Discharge Planning Updated by [email or web address]: Catherine Light on 09/22/18 10:[address] Patient Name: CECY BARRERA Admission Status: ER Accout number: [id number] Admission Date: 09-22-2018 : 1935 Admission Diagnosis: Attending: DC VALDERRAMA Current LOS: 1 Anticipated DC Date: Planned Disposition: Home Primary Insurance: MEDICARE A & B Discharge Planning Comments: CM met with patient at bedside after explaining CM role and obtaining verbal consent. Patient lives at home alone and plans to return there upon discharge. Patient feels this would be a safe discharge. CM discussed availability / needs of home health and medical equipment. Patient denies any discharge needs at this time. Patient states he will have his family drive him home upon discharge. CM will continue to follow and assist as needed with discharge planning / needs. Perl Developer: Catherine Light DCPIA - Discharge Planning Initial Assessment Updated by [email or web address]: Catherine Light on 09/22/18 11:29 pm * Is the patient Alert and Oriented? Yes * How many steps to enter\exit or inside your home? * PCP Juan * [facility]acy [facility] * Preadmission Environment Home Alone * ADLs Independent * Other Equipment WALKER, CANE, WHEELCHAIR, HOME 02 * List name and contact numbers for known caregivers / representatives who currently or will assist patient after discharge: FRANKI BARRERA - GRAND-DAUGHTER [phone] * Verbal permission to speak to the caregivers and representatives has been obtained from the patient. N/A * Community resources currently utilized None * Additional services required to return to the preadmission environment? No * Can the patient safely return to the preadmission environment? Yes * Has this patient been hospitalized within the prior 30 days at any hospital? No Last DP export: 09/22/18 10:37 p Patient Name: CECY BARRERA Page 22506 at 0942 All edits/amendments must be made on the electronic document DICTATION DATE: 09/25/18941 PRODUCE DEPARTMENT SUPERVISOR: OCTAVIA 09/25/18941 RPT#: [id number] DC DATE:09/24/18 STATUS: DIS IN [facility] [address] [place] [address] END OF REPORT
== END 2018-09-24 09:23 | disposition home or self-care (01) | DRG 86 ==
LOC: D.ER 14:46 → D.EDHOLD 17:09 → D.ICU 17:09
PROVIDERS: Family Medicine; ADMIT Internal Medicine Nephrology; ATTEND Internal Medicine Nephrology
DX: S06.5X0A Traumatic subdural hemorrhage without loss of consciousness, initial encounter (principal); J96.12 Chronic respiratory failure with hypercapnia; J96.11 Chronic respiratory failure with hypoxia; N17.9 Acute kidney failure, unspecified; W19.XXXA Unspecified fall, initial encounter; R55 Syncope and collapse; E86.0 Dehydration; D64.9 Anemia, unspecified; I25.10 Atherosclerotic heart disease of native coronary artery without angina pectoris; J44.9 Chronic obstructive pulmonary disease, unspecified; N40.0 Benign prostatic hyperplasia without lower urinary tract symptoms; H91.90 Unspecified hearing loss, unspecified ear; G89.29 Other chronic pain; I48.91 Unspecified atrial fibrillation; H26.9 Unspecified cataract

== ENCOUNTER 2018-11-21 11:45 | Inpatient (IN) | payer MEDICARE ==
[~2018-11-21] VITALS: Ht 185.4 cm; Wt 75.3 kg
[~2018-11-21 11:45] MED LIST changes: +XANAX1 MG PO
[2018-11-21 12:19] LABS: BASOPHILS 0.3 % (0-2); EOSINOPHILS 2.8 % (0-7); HEMATOCRIT 37.9 % (42.0-54.0); HEMOGLOBIN 12.1 g/dL (13.5-17.5); IMMATURE GRANULOCYTES 0.3 % (0-5); LYMPHOCYTES 18.8 % (15-50); MCH 30.5 pg (26.0-34.0); MCHC 31.9 g/dL (31.0-37.0); MCV 95.5 fL (80.0-100.0); MEAN PLATELET VOLUME 9.5 fL (7.4-10.4); MONOCYTES 7.1 % (2-11); NEUTROPHILS 70.7 % (40-80); PLATELET COUNT 190 10x3/uL (130-400); RBC 3.97 10x6/uL (4.20-6.10); RDW 13.2 % (11.5-14.5); WBC 7.9 10x3/uL (4.8-10.8)
[2018-11-21 12:28] LABS: APTT 31.4 SECONDS (22.8-39.4); INR 1.16 (0.85-1.17); PROTIME 14.3 SECONDS (11.6-15.0)
[2018-11-21 12:36] LABS: ALBUMIN 3.2 g/dL (3.4-5.0); ALKALINE PHOSPHATASE 80 U/L (46-116); ALT (SGPT) 15 U/L (10-68); BILIRUBIN - TOTAL 0.39 mg/dL (0.2-1.3); CALC OSMOLALITY 276 mosm/kg (275-300); CALCIUM 8.7 mg/dL (8.5-10.1); CARBON DIOXIDE 29.7 mmol/L (21.0-32.0); CHLORIDE - SERUM 100 mmol/L (98-107); CREATININE - SERUM 1.6 mg/dL (0.6-1.3); GLUCOSE 102 mg/dL (74-106); POTASSIUM - SERUM 5.5 mmol/L (3.5-5.1); PROTEIN - SERUM 7.9 g/dL (6.4-8.2); SODIUM 136 mmol/L (136-145); UREA NITROGEN 26 mg/dL (7-18); eGFR NON AFRICAN AMERICAN 44 mL/min (90-120)
[2018-11-21 12:42] LABS: UDS - AMPHET NEGATIVE QUAL (NEGATIVE); UDS - BARB NEGATIVE QUAL (NEGATIVE); UDS - BENZO POSITIVE QUAL (NEGATIVE); UDS - COCAINE NEGATIVE QUAL (NEGATIVE); UDS - OPIATE POSITIVE QUAL (NEGATIVE); UDS - PCP NEGATIVE QUAL (NEGATIVE); UDS - THC NEGATIVE QUAL (NEGATIVE)
[2018-11-21 12:44] LABS: APPEARANCE CLEAR (CLEAR); BILIRUBIN NEGATIVE (NEGATIVE); COLOR YELLOW (YELLOW); GLUCOSE NEGATIVE (NEGATIVE); KETONE NEGATIVE (NEGATIVE); NITRITE NEGATIVE (NEGATIVE); PROTEIN NEGATIVE (NEGATIVE); SPECIFIC GRAVITY 1.005 (1.005-1.020); UROBILINOGEN NORMAL (NORMAL)
[2018-11-21 12:45] LABS: BACTERIA FEW /hpf (NONE SEEN); EPITHELIAL CELLS NSEEN /hpf (0-5); RED CELLS - URINE NONE SEEN /hpf (0-5); WHITE CELLS - URINE 0-5 /hpf (0-5)
[2018-11-21 12:49] LABS: CKMB 1.2 U/L (0.0-3.6); CREATINE KINASE 79 UL (21-232); THYROID STIMULATING HORMONE 2.61 uIU/mL (0.36-3.74)
[2018-11-21 12:50] LABS: TROPONIN-I 0.128 ng/mL (0.000-0.060)
[2018-11-21 13:34] VITALS: BP 166/85
--- NOTE | 2018-11-21 16:01 | NUR ---
RECEIVED FROM ER VIA STRETCHER WITH FAMILY/ER STAFF. 83 Y/O W/M WHO WAS ABLE TO TRANSFER SELF OVER TO BED. FAMILY STATES HE IS MORE CONFUSED THAN USUAL. O2 IS ON 5 L/M N/C AND HE HAS BEEN WEARING IT AT 5 LITERS AT HOME FOR PAST 2 WEEKS BUT USUALLY USES 4 LITERS. HE HAS PRODUCTIVE COUGH WITH WHITE SPUTUM AT TIMES. HE HAS RHONCHI AND WHEEZES. SOB UPON EXERCERTION. NEURO'S INTACT BUT DOES NOT RECALL YEAR OR DATE. ORIENT TO CL AND HOW TO USE. HE WAS INSTRUCTED TO CALL FOR ASSIST AND HAS BED ALARM PAD ON BUT FAMILY WILL STAY TONIGHT. USED URINAL WITH CLEAR YELLOW URINE RETURN.
[2018-11-21 16:12] VITALS: BP 97/58; BMI 21.9
[2018-11-21 16:34] LABS: CKMB 1.2 U/L (0.0-3.6); CREATINE KINASE 83 UL (21-232)
[2018-11-21 16:47] LABS: TROPONIN-I 0.166 ng/mL (0.000-0.060)
--- NOTE | 2018-11-21 17:30 | NUR ---
TELEMENTRY SHOWS HR 66 SB. FAMILY AT BEDSIDE.
--- NOTE | 2018-11-21 19:47 | NUR ---
RECIEVED UP IN BED WITH FAMILY AT BEDSIDE. ALERT AND CONFUSED. HARD OF HEARING AND MUST REPEAT QUESTIONS. O2@ 5 LITERS PER N/C. IV TO RIGHT AC SL.. TELEMETRY IN PLACE AND CONT. NEUR CHECKS. DENIES ANY NEEDS AT THIS TIME.
[2018-11-21 20:22] VITALS: BP 90/49
[2018-11-21 21:58] LABS: CKMB 1.4 U/L (0.0-3.6); CREATINE KINASE 84 UL (21-232)
[2018-11-21 21:59] LABS: TROPONIN-I 0.123 ng/mL (0.000-0.060)
[2018-11-21 23:57] VITALS: BP 133/64
[2018-11-22 03:00] LABS: BASOPHILS 0.5 % (0-2); EOSINOPHILS 7.6 % (0-7); HEMATOCRIT 33.5 % (42.0-54.0); HEMOGLOBIN 10.9 g/dL (13.5-17.5); IMMATURE GRANULOCYTES 0.2 % (0-5); LYMPHOCYTES 27.3 % (15-50); MCH 30.4 pg (26.0-34.0); MCHC 32.5 g/dL (31.0-37.0); MEAN PLATELET VOLUME 9.1 fL (7.4-10.4); MONOCYTES 12.6 % (2-11); NEUTROPHILS 51.8 % (40-80); RBC 3.59 10x6/uL (4.20-6.10); RDW 13.3 % (11.5-14.5)
[2018-11-22 03:03] LABS: MCV 93.3 fL (80.0-100.0); PLATELET COUNT 148 10x3/uL (130-400); WBC 5.9 10x3/uL (4.8-10.8)
[2018-11-22 03:29] LABS: ALBUMIN 2.9 g/dL (3.4-5.0); ALKALINE PHOSPHATASE 68 U/L (46-116); ALT (SGPT) 12 U/L (10-68); BILIRUBIN - TOTAL 0.47 mg/dL (0.2-1.3); CALC OSMOLALITY 283 mosm/kg (275-300); CALCIUM 8.6 mg/dL (8.5-10.1); CARBON DIOXIDE 31.3 mmol/L (21.0-32.0); CHLORIDE - SERUM 101 mmol/L (98-107); CKMB 0.7 U/L (0.0-3.6); CREATINE KINASE 72 UL (21-232); CREATININE - SERUM 1.4 mg/dL (0.6-1.3); GLUCOSE 114 mg/dL (74-106); MAGNESIUM - SERUM 2.2 mg/dL (1.8-2.4); PROTEIN - SERUM 7.1 g/dL (6.4-8.2); SODIUM 140 mmol/L (136-145); UREA NITROGEN 25 mg/dL (7-18); eGFR NON AFRICAN AMERICAN 51 mL/min (90-120)
[2018-11-22 03:32] LABS: POTASSIUM - SERUM 4.2 mmol/L (3.5-5.1)
[2018-11-22 03:33] LABS: TROPONIN-I 0.087 ng/mL (0.000-0.060)
[2018-11-22 05:38] VITALS: BP 110/72
--- NOTE | 2018-11-22 07:00 | NUR ---
RECEIVED REPORT FROM [place], HE IS IN BED WITH FAMILY AT BEDSIDE. ALERT DENIES ANY CURRENT NEEDS O2 ON AT 5 L/M PER N/C. RT IN THERE GIVING UPDRAFT AT THIS TIME. CL IN REACH.
[2018-11-22 08:31] VITALS: BP 95/53
--- NOTE | 2018-11-22 10:30 | NUR ---
IN ROOM WITH BED ALARM ON AND IT WENT OFF WHEN I WENT TO ROOM PT HAD HIM STANDING UP AT BEDSIDE. CL IN REACH RESP EVEN WITHOUT LABOR. O2 SAT IS 93 AT THIS TIME.
[2018-11-22 10:52] LABS: % SATURATION 22 % (15-55); IRON 49 ug/dl (35-150); TOTAL IRON BIND CAPACITY 218 ug/dl (260-445); UNSAT IRON BIND CAPACITY 169 ug/dl (150-375)
[2018-11-22 12:06] VITALS: BP 108/62
--- NOTE | 2018-11-22 14:31 | MORECARE ---
CASE MANAGEMENT DISCHARGE SUMMARY PATIENT: CECY BARRERA UNIT: [id number] ADM DATE: 11/21/18 AGE: 83 : 36 SEX: M ROOM/BED: D.2102 AUTHOR: RADHAMES GARZA PHYSICIAN: REFERRING PHYSICIAN: KILO BURCH MD DATE OF SERVICE: 11/22/18 Discharge Plan Patient Name: CECY BARRERA Facility: [facility]:[place] : 1935 Planned Disposition: Home Anticipated Discharge Date: Discharge Date: Expected LOS: Initial Reviewer: [email or web address] Initial Review Date: 11/22/2018 Generated: 11/22/18 3:30 pm Comments DCP- Discharge Planning Updated by [email or web address]: Adia Pak on 11/22/18 1:[address] Patient Name: CECY BARRERA Admission Status: ER Accout number: [id number] Admission Date: 11-21-2018 : 1935 Admission Diagnosis: Attending: KIERSTEN, Current LOS: 1 Anticipated DC Date: Planned Disposition: Home Primary Insurance: MEDICARE A & B Discharge Planning Comments: CM MEET WITH PT AFTER VERBAL CONSENT TO DO INIITAL CM ASSESSMENT . PT LIVES AT HOME AND SON HAS BEEN LIVING WITH HIM RECENTLY. PT HAS HOME O2 CANT REMEMBER WHO IT IS WITH, IS INDEPENDENT IN CARE. DENIES ANY CM NEEDS. STATES HOME IS A SAFE DC PLAN AND SON OR GRANDAUGHTER WILL TOOL STRAIGHTENER AT DC. CM WITH CONTINUE TO FOLLOW AND ASSIST. Title I Math Tutor: Adia Pak DCPIA - Discharge Planning Initial Assessment Updated by [email or web address]: Adai Pak on 11/22/18 2:28 pm * Is the patient Alert and Oriented? Yes * How many steps to enter\exit or inside your home? * PCP YESSENIA * [facility] * Preadmission Environment Home with Family * ADLs Independent * Equipment Oxygen * Verbal permission to speak to the caregivers and representatives has been obtained from the patient. N/A * Additional services required to return to the preadmission environment? No * Can the patient safely return to the preadmission environment? Yes * Has this patient been hospitalized within the prior 30 days at any hospital? No Patient Name: CECY BARRERA Page 82012 at 1431 All edits/amendments must be made on the electronic document DICTATION DATE: 11/22/181429 PORT DRIER: OCTAVIA 11/22/181429 RPT#: [id number] DC DATE: STATUS: ADM IN [facility] [address] [facility] [place] [address] END OF REPORT
--- NOTE | 2018-11-22 14:38 | MORECARE ---
CASE MANAGEMENT DISCHARGE SUMMARY PATIENT: CECY BARRERA UNIT: [id number] ADM DATE: 11/21/18 AGE: 83 : 36 SEX: M ROOM/BED: D.2102 AUTHOR: KAYLA,DOC PHYSICIAN: REFERRING PHYSICIAN: KILO BURCH MD DATE OF SERVICE: 11/22/18 Discharge Plan Patient Name: CECY BARRERA Facility: [facility]:[place] : 1935 Planned Disposition: Home Anticipated Discharge Date: Discharge Date: Expected LOS: Initial Reviewer: [id number] Initial Review Date: 11/22/2018 Generated: 11/22/18 3:38 pm Comments DCP- Discharge Planning Updated by [email or web address]: Adia Pak on 11/22/18 1:[address] Patient Name: CECY BARRERA Admission Status: ER Accout number: [id number] Admission Date: 11-21-2018 : 1935 Admission Diagnosis: Attending: KIERSTEN, Current LOS: 1 Anticipated DC Date: Planned Disposition: Home Primary Insurance: MEDICARE A & B Discharge Planning Comments: CM MEET WITH PT AFTER VERBAL CONSENT TO DO INIITAL CM ASSESSMENT . PT LIVES AT HOME AND SON HAS BEEN LIVING WITH HIM RECENTLY. PT HAS HOME O2 CANT REMEMBER WHO IT IS WITH, IS INDEPENDENT IN CARE. DENIES ANY CM NEEDS. STATES HOME IS A SAFE DC PLAN AND SON OR GRANDAUGHTER WILL SECURITY GUARD DISPATCHER AT DC. CM WITH CONTINUE TO FOLLOW AND ASSIST. KAL YANG [phone] Senior Training Specialist: Adia Pak DCPIA - Discharge Planning Initial Assessment Updated by [id number]: Adia Pak on 11/22/18 2:28 pm * Is the patient Alert and Oriented? Yes * How many steps to enter\exit or inside your home? * PCP YESSENIA * [facility] * Preadmission Environment Home with Family * ADLs Independent * Equipment Oxygen * Verbal permission to speak to the caregivers and representatives has been obtained from the patient. N/A * Additional services required to return to the preadmission environment? No * Can the patient safely return to the preadmission environment? Yes * Has this patient been hospitalized within the prior 30 days at any hospital? No Last DP export: 11/22/18 1:31 p Patient Name: CECY BARRERA Page [phone] at 1438 All edits/amendments must be made on the electronic document DICTATION DATE: 11/22/181436 FORECLOSURE FIELD INSPECTOR: OCTAVIA 11/22/181436 RPT#: [id number] DC DATE: STATUS: ADM IN [facility] [address] [place] [address] END OF REPORT
--- NOTE | 2018-11-22 14:55 | NUR ---
PAIN MEDICATION GIVEN PER ORDERS. HE IS AWAKE KEEPS REPEATING I JUST NEED TO GET ON HOME. HE HAS HAD FAMILY IN AND OUT TODAY. HAS USED THE URINAL TWICE AND DENIES ANY INCONTINENCE. CL IN REACH
--- NOTE | 2018-11-22 15:00 | NUR ---
REFUSES TO WEAR SCD'S. SHE UNDERSTANDS RISK WITH THIS.
[2018-11-22 15:04] VITALS: BP 106/59
--- NOTE | 2018-11-22 17:45 | NUR ---
IN BED WITH CL IN REACH. HE STILL REPEATS WHEN AM I GOING HOME. HE USED URINAL AND HAD CLEAR YELLOW URINE OUT.
--- NOTE | 2018-11-22 19:11 | NUR ---
RECIEVED UP IN BED WITH EYES OPEN AND TV ON. NO FAMILY AT BEDSIDE. ALERT AND ORIENTED TO PERSON. CONFUSED TO PLACE AND TIME. O2@ 5 LITERS PER N/C IN PLACE. IV TO RIGHT AC SL.. TELEMETRY IN PLACE. URINAL AT BEDSIDE. DENIES ANY NEEDS AT THIS TIME.
[2018-11-22 20:00] VITALS: BP 131/72
[2018-11-23] VITALS: BP 112/61
[2018-11-23 04:00] VITALS: BP 100/58
[2018-11-23 06:58] LABS: BASOPHILS 0.4 % (0-2); EOSINOPHILS 6.6 % (0-7); HEMATOCRIT 36.2 % (42.0-54.0); HEMOGLOBIN 11.7 g/dL (13.5-17.5); LYMPHOCYTES 25.7 % (15-50); MCH 29.8 pg (26.0-34.0); MCHC 32.3 g/dL (31.0-37.0); MCV 92.1 fL (80.0-100.0); MEAN PLATELET VOLUME 9.9 fL (7.4-10.4); MONOCYTES 11.5 % (2-11); NEUTROPHILS 55.8 % (40-80); RBC 3.93 10x6/uL (4.20-6.10); RDW 13.2 % (11.5-14.5); WBC 6.7 10x3/uL (4.8-10.8)
[2018-11-23 07:30] LABS: PLATELET COUNT 190 10x3/uL (130-400)
--- NOTE | 2018-11-23 07:36 | NUR ---
REPORT RECEIVED. WILL CONTINUE WITH POC. PT CURRENTLY LYING SEMI FOWLERS. CALL LIGHT W/I REACH. PT IS RESTING AT THE MOMENT. RR EVEN AND UNLABORED ON 5L 02. R.AC PIV IS SALINE LOCKED. NO S/S OF DISTRESS NOTED. PT DENIES ANY NEEDS. WILL CTM.
[2018-11-23 07:50] LABS: ALBUMIN 3.2 g/dL (3.4-5.0); ANION GAP 12.5 mmol/L (8-16); BILIRUBIN - TOTAL 0.46 mg/dL (0.2-1.3); CALCIUM 9.2 mg/dL (8.5-10.1); CARBON DIOXIDE 31.2 mmol/L (21.0-32.0); CREATININE - SERUM 1.3 mg/dL (0.6-1.3); MAGNESIUM - SERUM 2.1 mg/dL (1.8-2.4); POTASSIUM - SERUM 3.7 mmol/L (3.5-5.1); PROTEIN - SERUM 7.9 g/dL (6.4-8.2)
[2018-11-23 09:04] VITALS: BP 120/46
[2018-11-23 09:58] VITALS: Ht 185.4 cm; Wt 75.3 kg
--- NOTE | 2018-11-23 13:36 | NUR ---
Rehab Prescreening Consult recieved and the patient was visited. He meets criteria for the ARU, but wants to think about it. Discussed with the CM Taz Dennis who will revisit with the patient regarding his discision this afternoon. If he agrees he can be accepted today. Nasreen Poole RN Clinical Liaison, Rehab
--- NOTE | 2018-11-23 14:23 | NUR ---
OT NOTE: PT COMPLETED ADL MOB WITH SPV. PT COMPLETED SITTING BALANCE WITH SPV. PT COMPLETED BUE AROM AT EOB WITH SPV. PT COMPLETED HYGIENE TASK WITH SET UP AT EOB. THANK YOU, CHARLIE WARD
--- NOTE | 2018-11-23 16:32 | MORECARE ---
CASE MANAGEMENT DISCHARGE SUMMARY PATIENT: CECY BARRERA UNIT: [id number] ADM DATE: 11/21/18 AGE: 83 : 36 SEX: M ROOM/BED: D.2102 AUTHOR: KAYLA,DOC PHYSICIAN: REFERRING PHYSICIAN: KILO BURCH MD DATE OF SERVICE: 11/23/18 Discharge Plan Patient Name: CECY BARRERA [facility] [facility] 1935 Planned Disposition: Inpatient Rehab Anticipated Discharge Date: 11/24/18 Discharge Date: Expected LOS: 3 Initial Reviewer: [id number] Initial Review Date: 11/22/2018 Generated: 11/23/18 5:32 pm DCP- Discharge Planning Updated by [id number]: Adia Pak on 11/22/18 1:[address] Patient Name: CECY BARRERA Admission Status: ER Accout number: [id number] Admission Date: 11-21-2018 : 1935 Admission Diagnosis: Attending: KIERSTEN, Current LOS: 1 Anticipated DC Date: Planned Disposition: Home Primary Insurance: MEDICARE A & B Discharge Planning Comments: CM MEET WITH PT AFTER VERBAL CONSENT TO DO INIITAL CM ASSESSMENT . PT LIVES AT HOME AND SON HAS BEEN LIVING WITH HIM RECENTLY. PT HAS HOME O2 CANT REMEMBER WHO IT IS WITH, IS INDEPENDENT IN CARE. DENIES ANY CM NEEDS. STATES HOME IS A SAFE DC PLAN AND SON OR GRANDAUGHTER WILL SCRATCHER TENDER AT DC. CM WITH CONTINUE TO FOLLOW AND ASSIST. KAL YANG [phone] Cigarette Making Machine Catcher: Adia Pak DCPIA - Discharge Planning Initial Assessment Updated by [email or web address]: Adia Pak on 11/22/18 2:28 pm * Is the patient Alert and Oriented? Yes * How many steps to enter\exit or inside your home? * PCP YESSENIA * [facility] * Preadmission Environment Home with Family * ADLs Independent * Equipment Oxygen * Verbal permission to speak to the caregivers and representatives has been obtained from the patient. N/A * Additional services required to return to the preadmission environment? No * Can the patient safely return to the preadmission environment? Yes * Has this patient been hospitalized within the prior 30 days at any hospital? No Coverage Notice Reviewer: [id number] Dajuan Dennis Notice Issued Date-Time: 11/23/2018 14:00 Notice Type: IM Discharge Notice Notice Delivered To: Patient Relationship to Patient: Sumac Tanner Name: Delivery Method: HAND - Hand Delivered Angeli Days: Prior Verbal Notification: Recipient Understood Notice: Yes Recipient Signature: Yes Med Rec Note Co-signed by Attending: Coverage Notice Comment: Last DP export: 11/22/18 1:38 p Patient Name: CECY BARRERA Page 40123 at 1632 All edits/amendments must be made on the electronic document DICTATION DATE: 11/23/18 1631 PRODUCT SAFETY AND STANDARDS ENGINEER: OCTAVIA 11/23/18 1631 RPT#: [id number] [place] DATE: STATUS: ADM IN [facility] [address] [place] [address] END OF REPORT
--- NOTE | 2018-11-23 16:42 | MORECARE ---
CASE MANAGEMENT DISCHARGE SUMMARY PATIENT: CECY BARRERA UNIT: [id number] ADM DATE: 11/21/18 AGE: 83 : 36 SEX: M ROOM/BED: D.2102 AUTHOR: RADHAMES GARZA PHYSICIAN: REFERRING PHYSICIAN: KILO BURCH MD DATE OF SERVICE: 11/23/18 Discharge Plan Patient Name: CECY BARRERA [facility] [facility] 1935 Planned Disposition: Inpatient Rehab Anticipated Discharge Date: 11/24/18 Discharge Date: Expected LOS: 3 Initial Reviewer: [id number] Initial Review Date: 11/22/2018 Generated: 11/23/18 5:41 pm Comments DCP- Discharge Planning Updated by [id number]: Chuck Dennis on 11/23/18 3:[address] Patient Name: CECY BARRERA Encounter No: [id number] : 1935 Primary Insurance: MEDICARE A & B Anticipated DC Date: 11-24-2018 Planned Disposition: Inpatient Rehab External Planned Provider: [facility] INPATIENT REHAB DCP follow-up note: CM RECEIVED ORDER FOR INPATIENT REHAB PRESCREENING. CM SPOKE TO ANAM OF INPATIENT REHAB WHO MET WITH PT TODAY, PT IS THINKING ABOUT REHAB AND WANTS TO SEE CM. CM MET IN ROOM WITH PT IN ROOM. CM DISCUSSED AVAILABILITY OF REHAB SERVICES. PT STATES HE THOUGHT ABOUT IT AND DOES NOT WANT REHAB. PT STATES HE IS GOING HOME. CM REVIEWED THERAPY NOTES, ENCOURAGED PT TO CONSIDER REHAB AND EMPHASIZED THERAPY RECOMMENDATIONS FOR REHAB SERVICES PRIOR TO GOING HOME AND THAT PT IS A HIGH RISK FOR FALLS. PT STATES HE IS GOING HOME AND DENIES NEED OF ANYTHING STATING HE HAS FAMILY AND EVERYTHING HE NEEDS ALREADY. IMPORTANT MESSAGE FROM MEDICARE PROVIDED AND EXPLAINED. CM SPOKE TO ANAM OF INPATIENT REHAB WHO HAS CALLED AND SPOKE TO PT'S FAMILY, THEY WILL COME TO HOSPITAL LATER TODAY AND ENCOURAGE PT TO GO TO REHAB. FAMILY REPORTS PT MAKES HIS OWN DECISIONS AND IS STUBORN. INPATIENT REHAB AT [facility] WILL ACCEPT PT IF HE WILL AGREE TO GO TO REHAB. FAMILY TO MEET WITH PT LATER TODAY TO ENCOURAGE PT TO TAKE ADVANTAGE OF AVAILABLE REHAB SERVICES. CM WAITING PT AND FAMILY DECISION REGARDING INPATIENT REHAB. Chuck Sonny, CASE MANAGEMENT DCP- Discharge Planning Updated by [id number]: Adia Carrman on 11/22/18 1:[address] Patient Name: CECY BARRERA Admission Status: ER Accout number: [id number] Admission Date: 11-21-2018 : 1935 Admission Diagnosis: Attending: KIERSTEN, Current LOS: 1 Anticipated DC Date: Planned Disposition: Home Primary Insurance: MEDICARE A & B Discharge Planning Comments: CM MEET WITH PT AFTER VERBAL CONSENT TO DO INIITAL CM ASSESSMENT . PT LIVES AT HOME AND SON HAS BEEN LIVING WITH HIM RECENTLY. PT HAS HOME O2 CANT REMEMBER WHO IT IS WITH, IS INDEPENDENT IN CARE. DENIES ANY CM NEEDS. STATES HOME IS A SAFE DC PLAN AND SON OR GRANDAUNAILATER WILL TRAVEL PT AT DC. CM WITH CONTINUE TO FOLLOW AND ASSIST. KAL YANG [phone] Quality Control Head: Adia Pak DCPIA - Discharge Planning Initial Assessment Updated by [id number]: Adia Pak on 11/22/18 2:28 pm * Is the patient Alert and Oriented? Yes * How many steps to enter\exit or inside your home? * PCP YESSENIA * [facility]acy [facility] * Preadmission Environment Home with Family * ADLs Independent * Equipment Oxygen * Verbal permission to speak to the caregivers and representatives has been obtained from the patient. N/A * Additional services required to return to the preadmission environment? No * Can the patient safely return to the preadmission environment? Yes * Has this patient been hospitalized within the prior 30 days at any hospital? No Coverage Notice Reviewer: [id number] - Chuck Dennis Notice Issued Date-Time: 11/23/2018 14:00 Notice Type: IM Discharge Notice Notice Delivered To: Patient Relationship to Patient: Driller'S Assistant Name: Delivery Method: HAND - Hand Delivered Angeli Days: Prior Verbal Notification: Recipient Understood Notice: Yes Recipient Signature: Yes Med Rec Note Co-signed by Attending: Coverage Notice Comment: Last DP export: 11/23/18 3:32 p Patient Name: CECY BARRERA Page 40861 at 1642 All edits/amendments must be made on the electronic document DICTATION DATE: 11/23/181640 LEASE BROKER: OCTAVIA 11/23/181640 RPT#: [id number] DC DATE: STATUS: ADM IN [facility] [address] [place] [address] END OF REPORT
--- NOTE | 2018-11-23 17:00 | NUR ---
I have reviewed this patient and I concur with the Shift Assessment completed by the Licensed Practical Nurse today this shift.
[2018-11-23 17:08] VITALS: BP 107/52
[2018-11-23 18:38] VITALS: BP 110/88
--- NOTE | 2018-11-23 19:23 | NUR ---
RECIEVED UP IN BED WITH EYES OPEN AND FAMILY AT BEDSIDE. ALERT AND ORIENTED TODAY. VERY TALKATIVE. O2@ 3 LITERS PER N/C IN PLACE. IV TO RIGHT AC SL.. TELEMETRY IN PLACE. DENIES ANY NEEDS AT THIS TIME.
[2018-11-23 20:00] VITALS: BP 131/76
--- NOTE | 2018-11-23 20:04 | NUR ---
LAB CALLED [facility] 2.20. DR. VALDERRAMA ON FLOOR AND NOTIFIED. GAVE VERBAL ORDER FOR CTA PER PE PROTOCL. PT AWARE.
[2018-11-24] VITALS: BP 124/77
[2018-11-24 04:00] VITALS: BP 130/69
[2018-11-24 06:05] LABS: BASOPHILS 0.3 % (0-2); EOSINOPHILS 3.7 % (0-7); HEMATOCRIT 36.8 % (42.0-54.0); HEMOGLOBIN 12.2 g/dL (13.5-17.5); IMMATURE GRANULOCYTES 0.1 % (0-5); LYMPHOCYTES 21.4 % (15-50); MCH 30.4 pg (26.0-34.0); MCHC 33.2 g/dL (31.0-37.0); MCV 91.8 fL (80.0-100.0); MEAN PLATELET VOLUME 9.9 fL (7.4-10.4); MONOCYTES 13.4 % (2-11); NEUTROPHILS 61.1 % (40-80); PLATELET COUNT 199 10x3/uL (130-400); RBC 4.01 10x6/uL (4.20-6.10); RDW 13.3 % (11.5-14.5); WBC 7.8 10x3/uL (4.8-10.8)
[2018-11-24 06:40] LABS: ALBUMIN 3.3 g/dL (3.4-5.0); ANION GAP 12.6 mmol/L (8-16); BILIRUBIN - TOTAL 0.48 mg/dL (0.2-1.3); CALCIUM 9.2 mg/dL (8.5-10.1); CARBON DIOXIDE 30.9 mmol/L (21.0-32.0); CREATININE - SERUM 1.4 mg/dL (0.6-1.3); POTASSIUM - SERUM 3.5 mmol/L (3.5-5.1)
[2018-11-24 08:20] VITALS: BP 98/63
--- NOTE | 2018-11-24 08:22 | NUR ---
RESTING QUIETLY. NO APPARENT DISTRESS.
--- NOTE | 2018-11-24 08:35 | NUR ---
OT NOTE: PT PERFORMED WELL TODAY. STATING THAT HE IS REALLY WANTING TO GO HOME. EXPLAINED THAT ALL DRS HAVE TO AGREE TO DC AND SOMETIMES IT TAKES A WHILE. PT STATED THAT HE DECIDED THAT HE WANTED TO GO HOME AND GET THERAPY AT HOME VS REHAB. PT WITH INCONTINENT EPISODE; ASSISTED PT WITH HYGIENE. MIN ASSIST WITH DONNING GOWN; EOB SITTING WITH DECREASED TRUNK CONTROL BUT FAIR BALANCE. ABLE TO REPOSITION WITHOUT ASSIST; ABLE TO NELY SOCKS WITH SET UP; TRANSFER FROM BED TO CHAIR WITH MIN ASSIST; UPPER BODY HYGIENE WITH SET UP; FEEDING WITH SET UP OF TRAY..MOD ENCOURAGEMENT TO EAT BUT STATES THAT HE IS NOT HUNGRY. ARIEL SONG, OTR/L
[2018-11-24 12:31] VITALS: BP 100/76
--- NOTE | 2018-11-24 13:58 | NUR ---
LYING IN BED EYES CLOSED RESTING. RR EVEN AND UNLABORED. CALL LIGHT WITHIN REACH, FALL PRECAUTIONS IN PLACE. WILL CONTINUE TO MONITOR
[2018-11-24 17:08] LABS: FOLATE (FOLIC ACID) - SERUM 19.4 ng/mL (>3.0)
[2018-11-24 18:42] VITALS: BP 110/70
--- NOTE | 2018-11-24 19:07 | NUR ---
RECIEVED UP IN BED WITH EYES OPEN AND TV ON. ALERT AND ORIENTED X4 TODAY. PLEASANT AND TALKATIVE. O2@ 56 LITERS PER N/C IN PLACE. IV TO LEFT FA SL.. TELEMETRY IN PLACE. DENIES ANY NEEDS AT THIS TIME.
[2018-11-24 20:00] VITALS: BP 138/76
[2018-11-25] VITALS: BP 104/64
[2018-11-25 04:00] VITALS: BP 121/94
[2018-11-25 06:37] LABS: BASOPHILS 0.1 % (0-2); EOSINOPHILS 4.2 % (0-7); HEMATOCRIT 36.4 % (42.0-54.0); HEMOGLOBIN 11.9 g/dL (13.5-17.5); IMMATURE GRANULOCYTES 0.1 % (0-5); LYMPHOCYTES 24.8 % (15-50); MCH 30.1 pg (26.0-34.0); MCHC 32.7 g/dL (31.0-37.0); MCV 91.9 fL (80.0-100.0); MEAN PLATELET VOLUME 10.1 fL (7.4-10.4); MONOCYTES 12.3 % (2-11); NEUTROPHILS 58.5 % (40-80); PLATELET COUNT 205 10x3/uL (130-400); RBC 3.96 10x6/uL (4.20-6.10); RDW 13.4 % (11.5-14.5); WBC 7.7 10x3/uL (4.8-10.8)
[2018-11-25 07:30] LABS: ALBUMIN 3.4 g/dL (3.4-5.0); BILIRUBIN - TOTAL 0.48 mg/dL (0.2-1.3); CARBON DIOXIDE 30.2 mmol/L (21.0-32.0); CREATININE - SERUM 1.4 mg/dL (0.6-1.3); MAGNESIUM - SERUM 2.2 mg/dL (1.8-2.4); POTASSIUM - SERUM 3.2 mmol/L (3.5-5.1); PROTEIN - SERUM 8.1 g/dL (6.4-8.2)
--- NOTE | 2018-11-25 07:30 | NUR ---
RECEIVED A/A/OX4. DENIES ANY PAIN AT PRESENT JINA AND NO REQUESTS VOICED. STATES HE IS HOPING TO GET TO GO HOME TODAY. ASSESSMENT COMPLETED AND WILL CONTINUE POC.
--- NOTE | 2018-11-25 07:41 | MORECARE ---
CASE MANAGEMENT DISCHARGE SUMMARY PATIENT: CECY BARRERA UNIT: [id number] ADM DATE: 11/21/18 AGE: 83 : 36 SEX: M ROOM/BED: D.2102 AUTHOR: KAYLA,DOC PHYSICIAN: REFERRING PHYSICIAN: KILO BURCH MD DATE OF SERVICE: 11/25/18 Discharge Plan Patient Name: CECY BARRERA [facility] [facility] 1935 Planned Disposition: Home Anticipated Discharge Date: 11/24/18 Discharge Date: Expected LOS: 3 Initial Reviewer: [id number] Initial Review Date: 11/22/2018 Generated: 11/25/18 8:41 am Comments DCP- Discharge Planning Updated by [email or web address]: Chuck Dennis on 11/23/18 3:[address] Patient Name: CECY BARRERA Encounter No: [id number] : 1935 Primary Insurance: MEDICARE A & B Anticipated DC Date: 11-24-2018 Planned Disposition: Inpatient Rehab External Planned Provider: [facility] INPATIENT REH[facility] DCP follow-up note: CM RECEIVED ORDER FOR INPATIENT REHAB PRESCREENING. CM SPOKE TO ANAM OF INPATIENT REHAB WHO MET WITH PT TODAY, PT IS THINKING ABOUT REHAB AND WANTS TO SEE CM. CM MET IN ROOM WITH PT IN ROOM. CM DISCUSSED AVAILABILITY OF REHAB SERVICES. PT STATES HE THOUGHT ABOUT IT AND DOES NOT WANT REHAB. PT STATES HE IS GOING HOME. CM REVIEWED THERAPY NOTES, ENCOURAGED PT TO CONSIDER REHAB AND EMPHASIZED THERAPY RECOMMENDATIONS FOR REHAB SERVICES PRIOR TO GOING HOME AND THAT PT IS A HIGH RISK FOR FALLS. PT STATES HE IS GOING HOME AND DENIES NEED OF ANYTHING STATING HE HAS FAMILY AND EVERYTHING HE NEEDS ALREADY. IMPORTANT MESSAGE FROM MEDICARE PROVIDED AND EXPLAINED. CM SPOKE TO ANAM OF INPATIENT REHAB WHO HAS CALLED AND SPOKE TO PT'S FAMILY, THEY WILL COME TO HOSPITAL LATER TODAY AND ENCOURAGE PT TO GO TO REHAB. FAMILY REPORTS PT MAKES HIS OWN DECISIONS AND IS STUBORN. INPATIENT REHAB AT [facility] WILL ACCEPT PT IF HE WILL AGREE TO GO TO REHAB. FAMILY TO MEET WITH PT LATER TODAY TO ENCOURAGE PT TO TAKE ADVANTAGE OF AVAILABLE REHAB SERVICES. CM WAITING PT AND FAMILY DECISION REGARDING INPATIENT REHAB. Chuck Dennis CASE MANAGEMENT DCP- Discharge Planning Updated by [id number]: Adia Pak on 11/22/18 1:[address] Patient Name: CECY BARRERA Admission Status: ER Accout number: [id number] Admission Date: 11-21-2018 : 1935 Admission Diagnosis: Attending: KIERSTEN, Current LOS: 1 Anticipated DC Date: Planned Disposition: Home Primary Insurance: MEDICARE A & B Discharge Planning Comments: CM MEET WITH PT AFTER VERBAL CONSENT TO DO INIITAL CM ASSESSMENT . PT LIVES AT HOME AND SON HAS BEEN LIVING WITH HIM RECENTLY. PT HAS HOME O2 CANT REMEMBER WHO IT IS WITH, IS INDEPENDENT IN CARE. DENIES ANY CM NEEDS. STATES HOME IS A SAFE DC PLAN AND SON OR GRANDAUGHTER WILL WOODWORKING MACHINIST AT DC. CM WITH CONTINUE TO FOLLOW AND ASSIST. KAL YANG [phone] Fifth Grade Teacher: Adia Pak DCPIA - Discharge Planning Initial Assessment Updated by [email or web address]: Adia Pak on 11/22/18 2:28 pm * Is the patient Alert and Oriented? Yes * How many steps to enter\exit or inside your home? * PCP YESSENIA * [facility]acy [facility] * Preadmission Environment Home with Family * ADLs Independent * Equipment Oxygen * Verbal permission to speak to the caregivers and representatives has been obtained from the patient. N/A * Additional services required to return to the preadmission environment? No * Can the patient safely return to the preadmission environment? Yes * Has this patient been hospitalized within the prior 30 days at any hospital? No Coverage Notice Reviewer: [id number] Dajuan Dennis Notice Issued Date-Time: 11/23/2018 14:00 Notice Type: IM Discharge Notice Notice Delivered To: Patient Relationship to Patient: Program Project Manager Name: Delivery Method: HAND - Hand Delivered Angeli Days: Prior Verbal Notification: Recipient Understood Notice: Yes Recipient Signature: Yes Med Rec Note Co-signed by Attending: Coverage Notice Comment: Last DP export: 11/23/18 3:41 p Patient Name: CECY BARRERA Page 55480 at 0741 All edits/amendments must be made on the electronic document DICTATION DATE: 11/25/18739 SITE LEAD: OCTAVIA 11/25/18739 RPT#: [id number] DC DATE: STATUS: ADM IN [facility] [address] [place] [address] END OF REPORT
--- NOTE | 2018-11-25 07:47 | MORECARE ---
CASE MANAGEMENT DISCHARGE SUMMARY PATIENT: CECY BARRERA UNIT: [id number] ADM DATE: 11/21/18 AGE: 83 : 36 SEX: M ROOM/BED: D.2102 AUTHOR: KAYLA,DOC PHYSICIAN: REFERRING PHYSICIAN: KILO BURCH MD DATE OF SERVICE: 11/25/18 Discharge Plan Patient Name: CECY BARRERA [facility] [facility] 1935 Planned Disposition: Home Anticipated Discharge Date: 11/24/18 Discharge Date: Expected LOS: 3 Initial Reviewer: [id number] Initial Review Date: 11/22/2018 Generated: 11/25/18 8:47 am Comments DCP- Discharge Planning Updated by [id number]: Chuck Dennis on 11/25/18 6:[address] Patient Name: CECY BARRERA Encounter No: [id number] : 1935 Primary Insurance: MEDICARE A & B Anticipated DC Date: 11-24-2018 Planned Disposition: Home DCP follow-up note: CM SPOKE TO PT IN ROOM REGARDING DISCHARGE PLANNING AND NEEDS. PT REPORTS THAT HE IS GOING HOME AND IS NOT GOING TO INPATIENT OR PRISON FACILITY REHAB. CM DISCUSSED HOME HEALTH SERVICES AND MEDICAL EQUIPMENT, PT DENIES NEEDS, REPORTS HAVING ALL HE NEEDS AT HOME TO DISCHARGE. PT STATES HIS FAMILY WILL PICK HIM UP FOR DISCHARGE HOME. PATIENT DECLINES REHAB SERVICES, PLANS TO DISCHARGE HOME WITH FAMILY, DENIES DISCHARGE NEEDS. CM TO FOLLOW AND ASSIST IF NEEDED. OTBY Coto DCP- Discharge Planning Updated by [email or web address]: Chuck Dennis on 11/23/18 3:[address] Patient Name: CECY BARRERA Encounter No: [id number] : 1935 Primary Insurance: MEDICARE A & B Anticipated DC Date: 11-24-2018 Planned Disposition: Inpatient Rehab External Planned Provider: [facility] INPATIENT REHAB DCP follow-up note: CM RECEIVED ORDER FOR INPATIENT REHAB PRESCREENING. CM SPOKE TO ANAM OF INPATIENT REHAB WHO MET WITH PT TODAY, PT IS THINKING ABOUT REHAB AND WANTS TO SEE CM. CM MET IN ROOM WITH PT IN ROOM. CM DISCUSSED AVAILABILITY OF REHAB SERVICES. PT STATES HE THOUGHT ABOUT IT AND DOES NOT WANT REHAB. PT STATES HE IS GOING HOME. CM REVIEWED THERAPY NOTES, ENCOURAGED PT TO CONSIDER REHAB AND EMPHASIZED THERAPY RECOMMENDATIONS FOR REHAB SERVICES PRIOR TO GOING HOME AND THAT PT IS A HIGH RISK FOR FALLS. PT STATES HE IS GOING HOME AND DENIES NEED OF ANYTHING STATING HE HAS FAMILY AND EVERYTHING HE NEEDS ALREADY. IMPORTANT MESSAGE FROM MEDICARE PROVIDED AND EXPLAINED. CM SPOKE TO ANAM OF INPATIENT REHAB WHO HAS CALLED AND SPOKE TO PT'S FAMILY, THEY WILL COME TO HOSPITAL LATER TODAY AND ENCOURAGE PT TO GO TO REHAB. FAMILY REPORTS PT MAKES HIS OWN DECISIONS AND IS STUBORN. INPATIENT REHAB AT [facility] WILL ACCEPT PT IF HE WILL AGREE TO GO TO REHAB. FAMILY TO MEET WITH PT LATER TODAY TO ENCOURAGE PT TO TAKE ADVANTAGE OF AVAILABLE REHAB SERVICES. CM WAITING PT AND FAMILY DECISION REGARDING INPATIENT REHAB. Chuck Dennis, CASE MANAGEMENT DCP- Discharge Planning Updated by [id number]: Adia Pak on 11/22/18 1:[address] Patient Name: CECY BARRERA Admission Status: ER Accout number: [id number] Admission Date: 11-21-2018 : 1935 Admission Diagnosis: Attending: KIERSTEN, Current LOS: 1 Anticipated DC Date: Planned Disposition: Home Primary Insurance: MEDICARE A & B Discharge Planning Comments: CM MEET WITH PT AFTER VERBAL CONSENT TO DO INIITAL CM ASSESSMENT . PT LIVES AT HOME AND SON HAS BEEN LIVING WITH HIM RECENTLY. PT HAS HOME O2 CANT REMEMBER WHO IT IS WITH, IS INDEPENDENT IN CARE. DENIES ANY CM NEEDS. STATES HOME IS A SAFE DC PLAN AND SON OR GRANDAUNAILATER WILL WASHCOAT WIPER AT DC. CM WITH CONTINUE TO FOLLOW AND ASSIST. KAL YANG [phone] Ship Boss: Adia Pak DCPIA - Discharge Planning Initial Assessment Updated by [id number]: Adia Pak on 11/22/18 2:28 pm * Is the patient Alert and Oriented? Yes * How many steps to enter\exit or inside your home? * PCP YESSENIA * [facility] * Preadmission Environment Home with Family * ADLs Independent * Equipment Oxygen * Verbal permission to speak to the caregivers and representatives has been obtained from the patient. N/A * Additional services required to return to the preadmission environment? No * Can the patient safely return to the preadmission environment? Yes * Has this patient been hospitalized within the prior 30 days at any hospital? No Coverage Notice Reviewer: [email or web address] Dajuan Dennis Notice Issued Date-Time: 11/23/2018 14:00 Notice Type: IM Discharge Notice Notice Delivered To: Patient Relationship to Patient: Web Feeder Name: Delivery Method: HAND - Hand Delivered Angeli Days: Prior Verbal Notification: Recipient Understood Notice: Yes Recipient Signature: Yes Med Rec Note Co-signed by Attending: Coverage Notice Comment: Last DP export: 11/25/18 6:41 a Patient Name: CECY BARRERA Page 24726 at 0747 All edits/amendments must be made on the electronic document DICTATION DATE: 11/25/18746 FOREPART REDUCER: OCTAVIA 11/25/18746 RPT#: [id number] DC DATE: STATUS: ADM IN [facility] [address] [place] [address] END OF REPORT
[2018-11-25 09:23] VITALS: BP 111/66
--- NOTE | 2018-11-25 11:19 | CN ---
PATIENT NAME:CECY COLON MEDICAL RECORD: [id number] : 37 LOCATION:. D.2102 ADMIT DATE: 11/21/18 ACCOUNT: [id number] CONSULTING PHYSICIAN: FREEMAN HAM MD REFERRING PHYSICIAN: KILO BURCH MD DATE OF CONSULTATION: 11/22/2018 CARDIOLOGY CONSULTATION DIAGNOSES: 1. Elevated troponin. 2. Coronary artery disease. 3. Status post coronary artery bypass graft surgery. 4. Shortness of breath, dyspnea on exertion. 5. Confusion. 6. Renal insufficiency. 7. Anemia. HISTORY OF PRESENT ILLNESS: Mr. Colon presents with metabolic encephalopathy and confusion, found to have elevated troponin. He denies any chest pain or chest discomfort. Does have a history of coronary bypass graft surgery times 1, RONQUILLO to the LAD after failed intervention. This was last year. His EKG is with no changes. Troponin is trending down. Creatinine is stable. PHYSICAL EXAMINATION: GENERAL APPEARANCE: Well-nourished, well-developed, appears stated age. Level of distress, comfortable. PSYCHIATRIC: Mental status, alert, normal affect. Orientation, oriented to time, place and person. EYES: Lids and conjunctiva, noninjected. No discharge, no pallor. ENT: Lips, teeth, gums, normal dentition. Oropharynx, no cyanosis, no pallor. NECK: Carotid arteries, bilateral normal upstroke, no bruits, no thrills. JUGULAR VEINS: No jugular venous pressure or distention. CERVICAL LYMPH NODES: Nontender, nonenlarged. THYROID: Not enlarged. Nontender. No nodules. LUNGS: Respiratory effort, unlabored. CHEST: Normal curvature. No thoracic deformity. No chest wall tenderness. Percussion, resonant. Auscultation, clear. No wheezes, no rales, no rhonchi. CARDIOVASCULAR: Precordial exam, nondisplaced. No heaves or pericardial thrills. Rate and rhythm, regular. Heart sounds, normal S1, normal S2. No S3, no gallop, no rub. Systolic murmur, not heard. Diastolic murmur, not heard. EXTREMITIES: No cyanosis, no edema. Peripheral pulses, full and equal in all extremities, except as noted. No bruits appreciated. ABDOMEN: Soft, nondistended. Normal aorta. No bruit. Nontender. No masses. Liver, nontender, no hepatomegaly. Spleen, nontender, no splenomegaly. MUSCULOSKELETAL: No joint tenderness. No joint swelling. No erythema. NEUROLOGICAL: Normal gait, normal strength, normal tone. SKIN: Warm and dry. OVERALL IMPRESSION: Elevated troponin. Most likely, this is secondary to the iltfu-fa-yrvzpmh renal insufficiency and noncardiac in nature. His ejection fraction was normal. Chest x-ray is not compatible with pulmonary edema and his EKG is normal. At this time, the only thing we will do is repeat echocardiogram to see if he has any change in his overall LV function or wall motion abnormalities. No other cardiac workup or treatment is necessary at this time. CONSULT REPORT [id number] CECY COLON TRANSINT:[id number] Voice Confirmation ID: [id number] DOCUMENT ID: [id number] FREEMAN HAM MD at 1119 CC: [id number] DICTATION DATE: 11/22/18 1102 METAL FURNITURE POLISHER: 11/22/18 1424 ADM IN [place] [id number] [place] [address]
--- NOTE | 2018-11-25 11:19 | EC ---
PATIENT:CECY BARRERA DATE OF SERVICE: 11/21/18 SEX: M MEDICAL RECORD: [id number] DATE OF : 37 LOCATION:D.M2 D.210 AGE OF PATIENT: 83 ADMISSION DATE: 11/21/18 REFERRING PHYSICIAN: INTERPRETING PHYSICIAN: FREEMAN PENN MD ECHOCARDIOGRAM REPORT ECHO CHARGES 4 ECHO COMPLETE Date: 11/22/18 CLINICAL DIAGNOSIS: DYSPNEA ECHOCARDIOGRAPHIC MEASUREMENTS (adult normal given) AC root (d.<3.7cm) 3.4 cm LV Septum d (<1.2 cm> 1.1 cm Valve Excursion 1.5 cm LV Septum (systole) 1.6 cm Left Atria (s.<4.0cm> 3.1 cm LVPW d(<1.2cm) 0.7 cm RV (d.<2.3cm) 3.7 cm LVPW (sytole) 1.3 cm LV diastole(<5.6CM) 5.1 cm MV E-F(>70mm/sec) cm LV systole 3.3 cm LVOT Diameter 2.0 cm MV exc.(>10mm) cm Est.ejection fraction (50-75%) % DOPPLER: LVIT cm/sec A 61 cm/sec E 60 cm/sec LA cm/sec RVSP 38.4 mmHg LVOT 84 cm/sec AOP1/2T m/s Asc. Ao 112 cm/sec RVOT cm/sec RA cm/sec PA cm/sec AV Gradient Peak 5.0 mmHg AV Mean 2.7 mmHg AV Area 3.0 cm MV Gradient Peak 1.9 mmHg MV Mean 1.1 mmHg MV Area cm COMMENTS: Charge Account Identification Clerk: Angel KWOK [employer] Press Operator: Radha Penn TAPE# PACS Pericardial Effusion N DATE OF SERVICE: 11/21/2018 PROCEDURE: Echocardiogram. FINDINGS: 1. Left ventricular chamber size is within normal limits. Left ventricular systolic function is normal. Overall ejection fraction estimated at 55%. 2. Left atrium is within normal limits. Right atrium and right ventricular chamber sizes are mildly dilated. 3. Valvular structures have normal structure and motion. ECHOCARDIOGRAM REPORT [id number] CECY BARRERA 4. Doppler interrogation reveals mild to moderate tricuspid regurgitation, no other valvular insufficiency or stenosis. 5. No evidence of pericardial effusion or left ventricular thrombus. TRANSINT:[id number] Voice Confirmation ID: [id number] DOCUMENT ID: [id number] FREEMAN PENN MD at 1119 CC: [id number] DICTATION DATE: 11/22/18 1252 SENIOR SVP: 11/22/18 1436 ADM IN [place] [id number] [place] [id number]
--- NOTE | 2018-11-25 12:56 | NUR ---
I have reviewed this patient and I concur with the Shift Assessment completed by the Licensed Practical Nurse today this shift.
[2018-11-25 13:18] VITALS: BP 111/72
--- NOTE | 2018-11-25 15:43 | NUR ---
DISCHARGE INSTRUCTIONS REVIEWED WITH PT AND HIS GRANDSON. BOTH VERBALIZED UNDERSTANDING WITH NO QUESTIONS. SL REMOVED FROM LEFT FA WITH TIP INTACT AND PT TOLERATED WELL. LEFT FLOOR VIA W/C WITH ALL PERSONAL BELONGINGS AND LEFT FACILITY VIA PRIVATE VEHICLE WITH HIS GRANDSON.
--- NOTE | 2018-11-25 15:50 | MORECARE ---
CASE MANAGEMENT DISCHARGE SUMMARY PATIENT: CECY BARRERA UNIT: [id number] ADM DATE: 11/21/18 AGE: 83 : 36 SEX: M ROOM/BED: D.2102 AUTHOR: KAYLA,DOC PHYSICIAN: REFERRING PHYSICIAN: KILO BURCH MD DATE OF SERVICE: 11/25/18 Discharge Plan Patient Name: CECY [facility]ARRERA [facility] [facility] 1935 Planned Disposition: Home with Home Health Anticipated Discharge Date: 11/25/18 Discharge Date: 11/25/2018 Expected LOS: 4 Initial Reviewer: [id number] Initial Review Date: 11/22/2018 Generated: 11/25/18 4:50 pm Comments DCP- Discharge Planning Updated by [id number]: Chuck Dennis on 11/25/18 6:[address] Patient Name: CECY BARRERA Encounter No: [id number] : 1935 Primary Insurance: MEDICARE A & B Anticipated DC Date: 11-24-2018 Planned Disposition: Home DCP follow-up note: CM SPOKE TO PT IN ROOM REGARDING DISCHARGE PLANNING AND NEEDS. PT REPORTS THAT HE IS GOING HOME AND IS NOT GOING TO INPATIENT OR HALFWAY FACILITY REHAB. CM DISCUSSED HOME HEALTH SERVICES AND MEDICAL EQUIPMENT, PT DENIES NEEDS, REPORTS HAVING ALL HE NEEDS AT HOME TO DISCHARGE. PT STATES HIS FAMILY WILL PICK HIM UP FOR DISCHARGE HOME. PATIENT DECLINES REHAB SERVICES, PLANS TO DISCHARGE HOME WITH FAMILY, DENIES DISCHARGE NEEDS. CM TO FOLLOW AND ASSIST IF NEEDED. TOBY Coto DCP- Discharge Planning Updated by [id number]: Chuck Dennis on 11/23/18 3:[address] Patient Name: CECY BARRERA Encounter No: [id number] : 1935 Primary Insurance: MEDICARE A & B Anticipated DC Date: 11-24-2018 Planned Disposition: Inpatient Rehab External Planned Provider: [facility] IN[facility]IENT REHAB DCP follow-up note: CM RECEIVED ORDER FOR INPATIENT REHAB PRESCREENING. CM SPOKE TO ANAM OF INPATIENT REHAB WHO MET WITH PT TODAY, PT IS THINKING ABOUT REHAB AND WANTS TO SEE CM. CM MET IN ROOM WITH PT IN ROOM. CM DISCUSSED AVAILABILITY OF REHAB SERVICES. PT STATES HE THOUGHT ABOUT IT AND DOES NOT WANT REHAB. PT STATES HE IS GOING HOME. CM REVIEWED THERAPY NOTES, ENCOURAGED PT TO CONSIDER REHAB AND EMPHASIZED THERAPY RECOMMENDATIONS FOR REHAB SERVICES PRIOR TO GOING HOME AND THAT PT IS A HIGH RISK FOR FALLS. PT STATES HE IS GOING HOME AND DENIES NEED OF ANYTHING STATING HE HAS FAMILY AND EVERYTHING HE NEEDS ALREADY. IMPORTANT MESSAGE FROM MEDICARE PROVIDED AND EXPLAINED. CM SPOKE TO ANAM OF INPATIENT REHAB WHO HAS CALLED AND SPOKE TO PT'S FAMILY, THEY WILL COME TO HOSPITAL LATER TODAY AND ENCOURAGE PT TO GO TO REHAB. FAMILY REPORTS PT MAKES HIS OWN DECISIONS AND IS STUBORN. INPATIENT REHAB AT [place] WILL ACCEPT PT IF HE WILL AGREE TO GO TO REHAB. FAMILY TO MEET WITH PT LATER TODAY TO ENCOURAGE PT TO TAKE ADVANTAGE OF AVAILABLE REHAB SERVICES. CM WAITING PT AND FAMILY DECISION REGARDING INPATIENT REHAB. Chuck Dennis, CASE MANAGEMENT DCP- Discharge Planning Updated by [id number]: Adia Pak on 11/22/18 1:[address] Patient Name: CECY BARRERA Admission Status: ER Accout number: [id number] Admission Date: 11-21-2018 : 1935 Admission Diagnosis: Attending: KIERSTEN Current LOS: 1 Anticipated DC Date: Planned Disposition: Home Primary Insurance: MEDICARE A & B Discharge Planning Comments: CM MEET WITH PT AFTER VERBAL CONSENT TO DO INIITAL CM ASSESSMENT . PT LIVES AT HOME AND SON HAS BEEN LIVING WITH HIM RECENTLY. PT HAS HOME O2 CANT REMEMBER WHO IT IS WITH, IS INDEPENDENT IN CARE. DENIES ANY CM NEEDS. STATES HOME IS A SAFE DC PLAN AND SON OR GRANDAUGHTER WILL OIL PIPELINE DISPATCHER AT DC. CM WITH CONTINUE TO FOLLOW AND ASSIST. KAL YANG [phone] Assistant Warehouse Manager: Adia Pak DCPIA - Discharge Planning Initial Assessment Updated by [id number]: Adia Pak on 11/22/18 2:28 pm * Is the patient Alert and Oriented? Yes * How many steps to enter\exit or inside your home? * PCP YESSENIA * [facility] * Preadmission Environment Home with Family * ADLs Independent * Equipment Oxygen * Verbal permission to speak to the caregivers and representatives has been obtained from the patient. N/A * Additional services required to return to the preadmission environment? No * Can the patient safely return to the preadmission environment? Yes * Has this patient been hospitalized within the prior 30 days at any hospital? No External [facility]iders [facility] Next Contact Date: 11/25/2018 Service Request Date: Service Type: Resolution: Reviewer: Comments: Coverage Notice Reviewer: [id number] Dajuan Dennis Notice Issued Date-Time: 11/23/2018 14:00 Notice Type: IM Discharge Notice Notice Delivered To: Patient Relationship to Patient: Window Draper Name: Delivery Method: HAND - Hand Delivered Angeli Days: Prior Verbal Notification: Recipient Understood Notice: Yes Recipient Signature: Yes Med Rec Note Co-signed by Attending: Coverage Notice Comment: Last DP export: 11/25/18 6:47 a Patient Name: CECY BARRERA Page [id number] at 1550 All edits/amendments must be made on the electronic document DICTATION DATE: 11/25/18 1549 VARNISHING UNIT TOOL SETTER: OCTAVIA 11/25/18 1549 RPT#: [id number] DC DATE:11/25/18 STATUS: DIS IN [facility] [address] [place] [address] END OF REPORT
--- NOTE | 2018-11-25 16:01 | MORECARE ---
CASE MANAGEMENT DISCHARGE SUMMARY PATIENT: CECY BARRERA UNIT: [id number] ADM DATE: 11/21/18 AGE: 83 : 36 SEX: M ROOM/BED: D.2102 AUTHOR: KAYLA,DOC PHYSICIAN: REFERRING PHYSICIAN: KILO BURCH MD DATE OF SERVICE: 11/25/18 Discharge Plan Patient Name: [facility]ECY [facility]ARRERA [facility] [facility] 1935 Planned Disposition: Home with Home Health Anticipated Discharge Date: 11/25/18 Discharge Date: 11/25/2018 Expected LOS: 4 Initial Reviewer: [id number] Initial Review Date: 11/22/2018 Generated: 11/25/18 5:01 pm Comments DCP- Discharge Planning Updated by [id number]: Chuck Dennis on 11/25/18 6:[address] Patient Name: CECY BARRERA Encounter No: [id number] : 1935 Primary Insurance: MEDICARE A & B Anticipated DC Date: 11-24-2018 Planned Disposition: Home DCP follow-up note: CM SPOKE TO PT IN ROOM REGARDING DISCHARGE PLANNING AND NEEDS. PT REPORTS THAT HE IS GOING HOME AND IS NOT GOING TO INPATIENT OR INTERMEDIATE FACILITY REHAB. CM DISCUSSED HOME HEALTH SERVICES AND MEDICAL EQUIPMENT, PT DENIES NEEDS, REPORTS HAVING ALL HE NEEDS AT HOME TO DISCHARGE. PT STATES HIS FAMILY WILL PICK HIM UP FOR DISCHARGE HOME. PATIENT DECLINES REHAB SERVICES, PLANS TO DISCHARGE HOME WITH FAMILY, DENIES DISCHARGE NEEDS. CM TO FOLLOW AND ASSIST IF NEEDED. TOBY Coto DCP- Discharge Planning Updated by [id number]: Chuck Dennis on 11/23/18 3:[address] Patient Name: CECY BARRERA Encounter No: [id number] : 1935 Primary Insurance: MEDICARE A & B Anticipated DC Date: 11-24-2018 Planned Disposition: Inpatient Rehab External Planned Provider: [facility] INPATIENT REH[facility] DCP follow-up note: CM RECEIVED ORDER FOR INPATIENT REHAB PRESCREENING. CM SPOKE TO ANAM OF INPATIENT REHAB WHO MET WITH PT TODAY, PT IS THINKING ABOUT REHAB AND WANTS TO SEE CM. CM MET IN ROOM WITH PT IN ROOM. CM DISCUSSED AVAILABILITY OF REHAB SERVICES. PT STATES HE THOUGHT ABOUT IT AND DOES NOT WANT REHAB. PT STATES HE IS GOING HOME. CM REVIEWED THERAPY NOTES, ENCOURAGED PT TO CONSIDER REHAB AND EMPHASIZED THERAPY RECOMMENDATIONS FOR REHAB SERVICES PRIOR TO GOING HOME AND THAT PT IS A HIGH RISK FOR FALLS. PT STATES HE IS GOING HOME AND DENIES NEED OF ANYTHING STATING HE HAS FAMILY AND EVERYTHING HE NEEDS ALREADY. IMPORTANT MESSAGE FROM MEDICARE PROVIDED AND EXPLAINED. CM SPOKE TO ANAM OF INPATIENT REHAB WHO HAS CALLED AND SPOKE TO PT'S FAMILY, THEY WILL COME TO HOSPITAL LATER TODAY AND ENCOURAGE PT TO GO TO REHAB. FAMILY REPORTS PT MAKES HIS OWN DECISIONS AND IS STUBORN. INPAT[place] REHAB AT [place] WILL ACCEPT PT IF HE WILL AGREE TO GO TO REHAB. FAMILY TO MEET WITH PT LATER TODAY TO ENCOURAGE PT TO TAKE ADVANTAGE OF AVAILABLE REHAB SERVICES. CM WAITING PT AND FAMILY DECISION REGARDING INPATIENT REHAB. Chuck Dennis, CASE MANAGEMENT DCP- Discharge Planning Updated by [id number]: Adia Pak on 11/22/18 1:[address] Patient Name: CECY BARRERA Admission Status: ER Accout number: [id number] Admission Date: 11-21-2018 : 1935 Admission Diagnosis: Attending: KIERSTEN Current LOS: 1 Anticipated DC Date: Planned Disposition: Home Primary Insurance: MEDICARE A & B Discharge Planning Comments: CM MEET WITH PT AFTER VERBAL CONSENT TO DO INIITAL CM ASSESSMENT . PT LIVES AT HOME AND SON HAS BEEN LIVING WITH HIM RECENTLY. PT HAS HOME O2 CANT REMEMBER WHO IT IS WITH, IS INDEPENDENT IN CARE. DENIES ANY CM NEEDS. STATES HOME IS A SAFE DC PLAN AND SON OR GRANDAUGHTER WILL HAND CEMENTER AT DC. CM WITH CONTINUE TO FOLLOW AND ASSIST. KAL YANG [phone] Head Mixer: Adia Pak DCPIA - Discharge Planning Initial Assessment Updated by [id number]: Adia Pak on 11/22/18 2:28 pm * Is the patient Alert and Oriented? Yes * How many steps to enter\exit or inside your home? * PCP YESSENIA * [facility] * Preadmission Environment Home with Family * ADLs Independent * Equipment Oxygen * Verbal permission to speak to the caregivers and representatives has been obtained from the patient. N/A * Additional services required to return to the preadmission environment? No * Can the patient safely return to the preadmission environment? Yes * Has this patient been hospitalized within the prior 30 days at any hospital? No Coverage Notice Reviewer: [id number] Dajuan Dennis Notice Issued Date-Time: 11/23/2018 14:00 Notice Type: IM Discharge Notice Notice Delivered To: Patient Relationship to Patient: Medical Billing Specialist Name: Delivery Method: HAND - Hand Delivered Angeli Days: Prior Verbal Notification: Recipient Understood Notice: Yes Recipient Signature: Yes Med Rec Note Co-signed by Attending: Coverage Notice Comment: Last DP export: 11/25/18 2:50 p Patient Name: CECY BARRERA Page [id number] at 1601 All edits/amendments must be made on the electronic document DICTATION DATE: 11/25/181599 HCC CODERS: OCTAVIA 11/25/181599 RPT#: [id number] DC DATE:11/25/18 STATUS: DIS IN [facility] [address] [place] [address] END OF REPORT
--- NOTE | 2018-11-25 16:12 | MORECARE ---
CASE MANAGEMENT DISCHARGE SUMMARY PATIENT: CECY BARRERA UNIT: [id number] ADM DATE: 11/21/18 AGE: 83 : 36 SEX: M ROOM/BED: D.2102 AUTHOR: KAYLA,DOC PHYSICIAN: REFERRING PHYSICIAN: KILO BURCH MD DATE OF SERVICE: 11/25/18 Discharge Plan Patient Name: CECY BARRERA Facility: [facility]:[place] : 1935 Planned Disposition: Home with Home Health Anticipated Discharge Date: 11/25/18 Discharge Date: 11/25/2018 Expected LOS: 4 Initial Reviewer: [email or web address] Initial Review Date: 11/22/2018 Generated: 11/25/18 5:12 pm Comments DCP- Discharge Planning Updated by [email or web address]: Chuck Dennis on 11/25/18 3:[address] Patient Name: CECY BARRERA Encounter No: [id number] : 1935 Primary Insurance: MEDICARE A & B Anticipated DC Date: 11-25-2018 Planned Disposition: Home with Home Health External Planned Provider: [facility] DCP follow-up note: CM SPOKE TO PT IN ROOM, PT AGREES TO HAVE HOME HEALTH FOR THERAPY AND NURSING. PT HAS HAD HOME HEALTH IN THE PAST, ASKED FOR [facility]. CHOICE SIGNED. CM CALLED [facility], , SPOKE TO NING, REFERRAL PROVIDED, PT PLACED ON SCHEDULE FOR FRIDAY. CM FAXED REFERRAL AND DISCHARGE INFORMATION TO [facility] AT [phone]. CM SPOKE TO PT WHO IS IN AGREEMENT WITH HOME HEALTH ADMIT ON FRIDAY, DENIES FURHTER NEEDS. GRANDSON HERE TO TRANSPORT HOME TODAY. STORE CUSTODIAN NURSE NOTIFIED. Chuck Dennis, CASE MANAGEMENT DCP- Discharge Planning Updated by [id number]: Chuck Dennis on 11/25/18 6:[address] Patient Name: CECY BARRERA Encounter No: [id number] : 1935 Primary Insurance: MEDICARE A & B Anticipated DC Date: 11-24-2018 Planned Disposition: Home DCP follow-up note: CM SPOKE TO PT IN ROOM REGARDING DISCHARGE PLANNING AND NEEDS. PT REPORTS THAT HE IS GOING HOME AND IS NOT GOING TO INPATIENT OR [facility] FACILITY REHAB. CM DISCUSSED HOME HEALTH SERVICES AND MEDICAL EQUIPMENT, PT DENIES NEEDS, REPORTS HAVING ALL HE NEEDS AT HOME TO DISCHARGE. PT STATES HIS FAMILY WILL PICK HIM UP FOR DISCHARGE HOME. PATIENT DECLINES REHAB SERVICES, PLANS TO DISCHARGE HOME WITH FAMILY, DENIES DISCHARGE NEEDS. CM TO FOLLOW AND ASSIST IF NEEDED. Chuck Dennis CASE MANAGEMENT DCP- Discharge Planning Updated by [id number]: Chuck Dennis on 11/23/18 3:[address] Patient Name: CECY BARRERA Encounter No: [id number] : 1935 Primary Insurance: MEDICARE A & B Anticipated DC Date: 11-24-2018 Planned Disposition: Inpatient Rehab External Planned Provider: [facility] INPATIENT REHAB DCP follow-up note: CM RECEIVED ORDER FOR INPATIENT REHAB PRESCREENING. CM SPOKE TO ANAM OF INPATIENT REHAB WHO MET WITH PT TODAY, PT IS THINKING ABOUT REHAB AND WANTS TO SEE CM. CM MET IN ROOM WITH PT IN ROOM. CM DISCUSSED AVAILABILITY OF REHAB SERVICES. PT STATES HE THOUGHT ABOUT IT AND DOES NOT WANT REHAB. PT STATES HE IS GOING HOME. CM REVIEWED THERAPY NOTES, ENCOURAGED PT TO CONSIDER REHAB AND EMPHASIZED THERAPY RECOMMENDATIONS FOR REHAB SERVICES PRIOR TO GOING HOME AND THAT PT IS A HIGH RISK FOR FALLS. PT STATES HE IS GOING HOME AND DENIES NEED OF ANYTHING STATING HE HAS FAMILY AND EVERYTHING HE NEEDS ALREADY. IMPORTANT MESSAGE FROM MEDICARE PROVIDED AND EXPLAINED. CM SPOKE TO ANAM OF INPATIENT REHAB WHO HAS CALLED AND SPOKE TO PT'S FAMILY, THEY WILL COME TO HOSPITAL LATER TODAY AND ENCOURAGE PT TO GO TO REHAB. FAMILY REPORTS PT MAKES HIS OWN DECISIONS AND IS STUBORN. INPATIENT REHAB AT [facility] WILL ACCEPT PT IF HE WILL AGREE TO GO TO REHAB. FAMILY TO MEET WITH PT LATER TODAY TO ENCOURAGE PT TO TAKE ADVANTAGE OF AVAILABLE REHAB SERVICES. CM WAITING PT AND FAMILY DECISION REGARDING INPATIENT REHAB. Chuck Dennis CASE MANAGEMENT DCP- Discharge Planning Updated by [id number]: Adia Pak on 11/22/18 1:[address] Patient Name: CECY BARRERA Admission Status: ER Accout number: [id number] Admission Date: 11-21-2018 : 1935 Admission Diagnosis: Attending: KIERSTEN, Current LOS: 1 Anticipated DC Date: Planned Disposition: Home Primary Insurance: MEDICARE A & B Discharge Planning Comments: CM MEET WITH PT AFTER VERBAL CONSENT TO DO INIITAL CM ASSESSMENT . PT LIVES AT HOME AND SON HAS BEEN LIVING WITH HIM RECENTLY. PT HAS HOME O2 CANT REMEMBER WHO IT IS WITH, IS INDEPENDENT IN CARE. DENIES ANY CM NEEDS. STATES HOME IS A SAFE DC PLAN AND SON OR WES WILL BIG DATA ANALYTICS LEAD AT DC. CM WITH CONTINUE TO FOLLOW AND ASSIST. SON CELIA [phone] Furrier Designer: Adia Pak DCPIA - Discharge Planning Initial Assessment Updated by [id number]: Adia Mellisa on 11/22/18 2:28 pm * Is the patient Alert and Oriented? Yes * How many steps to enter\exit or inside your home? * PCP YESSENIA * Pharmacy [facility] * Preadmission Environment Home with Family * ADLs Independent * Equipment Oxygen * Verbal permission to speak to the caregivers and representatives has been obtained from the patient. N/A * Additional services required to return to the preadmission environment? No * Can the patient safely return to the preadmission environment? Yes * Has this patient been hospitalized within the prior 30 days at any hospital? No Coverage Notice Reviewer: LARISSA Dennis Notice Issued Date-Time: 11/23/2018 14:00 Notice Type: IM Discharge Notice Notice Delivered To: Patient Relationship to Patient: Chefs Name: Delivery Method: HAND - Hand Delivered Angeli Days: Prior Verbal Notification: Recipient Understood Notice: Yes Recipient Signature: Yes Med Rec Note Co-signed by Attending: Coverage Notice Comment: Reviewer: LARISSA Dennis Notice Issued Date-Time: 11/25/2018 13:55 Notice Type: Patient Choice Letter Notice Delivered To: Patient Relationship to Patient: Chefs Name: Delivery Method: HAND - Hand Delivered Angeli Days: Prior Verbal Notification: Recipient Understood Notice: Yes Recipient Signature: Yes Med Rec Note Co-signed by Attending: Coverage Notice Comment: [facility] Last DP export: 11/25/18 3:01 p Patient Name: CECY BARRERA Page [id number] at 1612 All edits/amendments must be made on the electronic document DICTATION DATE: 11/25/18 1612 DEVULCANIZER TENDER: OCTAVIA 11/25/18 1612 RPT#: [id number] DC DATE:11/25/18 STATUS: DIS IN [facility] [address] [place] [address] END OF REPORT
== END 2018-11-25 15:47 | disposition home health service (06) | DRG 682 ==
LOC: D.ER 11:45 → D.M2 15:15
PROVIDERS: Emergency Medicine; ADMIT Family Medicine; ATTEND Family Medicine
DX: N17.9 Acute kidney failure, unspecified (principal); G93.41 Metabolic encephalopathy; J96.21 Acute and chronic respiratory failure with hypoxia; I50.31 Acute diastolic (congestive) heart failure; J18.9 Pneumonia, unspecified organism; J44.1 Chronic obstructive pulmonary disease with (acute) exacerbation; J44.0 Chronic obstructive pulmonary disease with (acute) lower respiratory infection; I11.0 Hypertensive heart disease with heart failure; I25.10 Atherosclerotic heart disease of native coronary artery without angina pectoris; K21.9 Gastro-esophageal reflux disease without esophagitis; D64.9 Anemia, unspecified; M19.90 Unspecified osteoarthritis, unspecified site; Z87.891 Personal history of nicotine dependence

== ENCOUNTER 2019-06-14 11:24 | Inpatient (IN) | payer MEDICARE, MEDICAID ==
[2019-06-14] VITALS: BP 177/63
[~2019-06-14] VITALS: Ht 185.4 cm; Wt 78.5 kg
--- NOTE | 2019-06-14 12:19 | NUR ---
RECEIVED PT FROM ADMISIIONS PT IS DIRECT ADMIT FROM DR KUO OFFICE, PT ANSWERS APPROPRIATELY AND FAMILY AT BEDSIDE WELL. PT O2 IS BETWEEN 76-81% PT SON STATED O2 HAS NOT BEEN ABOVE 90 IN WEEKS. HAVE PT ON 3L PER ORDERS PT NEEDS TO BE ON 2-4L NEEDED WILL RECHECK PT AND PLACE ON 4L IF PT IS STILL STATING LOW. NO OTHER NEEDS VOICED AT THIS TIME ASSUME PT CARE
[2019-06-14 12:34] VITALS: BP 104/55; BMI 22.8
[2019-06-14 13:10] LABS: INR 1.22 (0.85-1.17); PROTIME 14.8 SECONDS (11.6-15.0)
[2019-06-14 13:11] LABS: ANION GAP 13.8 mmol/L (8-16); CALCIUM 8.6 mg/dL (8.5-10.1); CARBON DIOXIDE 27.5 mmol/L (21.0-32.0); CREATININE - SERUM 1.9 mg/dL (0.6-1.3); POTASSIUM - SERUM 5.3 mmol/L (3.5-5.1)
[2019-06-14 13:14] LABS: ALBUMIN 3.1 g/dL (3.4-5.0); BILIRUBIN - TOTAL 0.46 mg/dL (0.2-1.3); PROTEIN - SERUM 7.5 g/dL (6.4-8.2)
[2019-06-14 13:49] LABS: BASOPHILS 0.4 % (0-2); EOSINOPHILS 4.3 % (0-7); HEMATOCRIT 35.6 % (42.0-54.0); HEMOGLOBIN 11.5 g/dL (13.5-17.5); IMMATURE GRANULOCYTES 0.4 % (0-5); LYMPHOCYTES 15.1 % (15-50); MCHC 32.3 g/dL (31.0-37.0); MEAN PLATELET VOLUME 9.7 fL (7.4-10.4); MONOCYTES 9.7 % (2-11); NEUTROPHILS 70.1 % (40-80); PLATELET COUNT 191 10x3/uL (130-400); RBC 3.71 10x6/uL (4.20-6.10); RDW 12.5 % (11.5-14.5); WBC 8.4 10x3/uL (4.8-10.8)
--- NOTE | 2019-06-14 15:24 | NUR ---
PT LYING IN BED DOZING OFF PT IS AT 96% ON 9L. NO NEEDS VOICED, NO FAMILY AT BEDSIDE, CONTINUE WITH PLAN OF CARE
[2019-06-14 16:22] LABS: CKMB 0.9 U/L (0.0-3.6); CREATINE KINASE 49 UL (21-232)
[2019-06-14 16:25] LABS: TROPONIN-I < 0.017 ng/mL (0.000-0.060)
[2019-06-14 17:08] VITALS: BP 118/74
--- NOTE | 2019-06-14 21:40 | NUR ---
LYING IN BED. ALERT AND ORIENTED TO SELF, PLACE AND SITUATION. CONFUSED TO TIME. RESP IRREG. O2 @ 7L/HFC. TREMORS NOTED TO BUE. REPORTS PAIN IN BLE RATING 5. MS CONTIN SCHEDULED. SALINE LOCK NOTED TO LT FOREARM. JOSE R ALARM ON FOR PT SAFETY. NO DISTRESS. SR ELEVATED X2. CL IN REACH.
[2019-06-14 23:02] LABS: CKMB 0.9 U/L (0.0-3.6); CREATINE KINASE 49 UL (21-232); TROPONIN-I < 0.017 ng/mL (0.000-0.060)
--- NOTE | 2019-06-15 01:00 | NUR ---
LYING IN BED WITH EYES CLOSED. RESP EVEN AND NONLABORED. O2 IN USE NO DISTRESS. JOSE R ALARM ON. CL IN REACH.
--- NOTE | 2019-06-15 03:18 | NUR ---
INCONT OF URINE. TRYING TO GET OOB WITHOUT HELP. CONFUSED. ASSISTED BACK INTO BED. PERICARE PERFORMED. COMPLETE LINEN CHANGE DONE. JOSE R ALARM ON. SR ELEVATED X2. CL IN REACH.
[2019-06-15 06:52] LABS: BASOPHILS 0.3 % (0-2); EOSINOPHILS 7.3 % (0-7); HEMATOCRIT 35.6 % (42.0-54.0); HEMOGLOBIN 11.3 g/dL (13.5-17.5); IMMATURE GRANULOCYTES 0.3 % (0-5); LYMPHOCYTES 18.7 % (15-50); MCH 30.7 pg (26.0-34.0); MCHC 31.7 g/dL (31.0-37.0); MCV 96.7 fL (80.0-100.0); MEAN PLATELET VOLUME 10.3 fL (7.4-10.4); MONOCYTES 16.1 % (2-11); NEUTROPHILS 57.3 % (40-80); PLATELET COUNT 179 10x3/uL (130-400); RBC 3.68 10x6/uL (4.20-6.10); RDW 12.5 % (11.5-14.5); WBC 6.5 10x3/uL (4.8-10.8)
[2019-06-15 07:19] LABS: ALBUMIN 3.1 g/dL (3.4-5.0); ALKALINE PHOSPHATASE 80 U/L (46-116); BILIRUBIN - TOTAL 0.53 mg/dL (0.2-1.3); CALC OSMOLALITY 286 mosm/kg (275-300); CALCIUM 8.6 mg/dL (8.5-10.1); CARBON DIOXIDE 29.1 mmol/L (21.0-32.0); CHLORIDE - SERUM 101 mmol/L (98-107); CKMB 0.8 U/L (0.0-3.6); CREATINE KINASE 47 UL (21-232); CREATININE - SERUM 1.8 mg/dL (0.6-1.3); GLUCOSE 93 mg/dL (74-106); PROTEIN - SERUM 7.3 g/dL (6.4-8.2); SODIUM 140 mmol/L (136-145); TROPONIN-I < 0.017 ng/mL (0.000-0.060); UREA NITROGEN 36 mg/dL (7-18); eGFR NON AFRICAN AMERICAN 38 mL/min (90-120)
[2019-06-15 07:24] LABS: ALT (SGPT) 11 U/L (10-68); POTASSIUM - SERUM 4.2 mmol/L (3.5-5.1)
--- NOTE | 2019-06-15 08:07 | NUR ---
PATIENT RECIEVED RESTING WITH EYES OPEN. NO DISTRESS. BED ALARM ON DUE TO CONFUSION AT TIMES. CL IN REACH
[2019-06-15 08:30] VITALS: BP 123/61
[2019-06-15 12:48] VITALS: BP 114/75
[2019-06-15 15:56] LABS: PROTEIN - BODY FLUID 5.2 G/DL
[2019-06-15 16:43] VITALS: BP 156/84
--- NOTE | 2019-06-15 17:49 | NUR ---
OT NOTE: PT COMPLETED BED MOB WITH MOD A AND CONSTANT CUE. PT COMPLETED EOB SITTING WITH CGA. PT COMPLETED GROOMING TASKS WITH MIN A. PT COMPLETED UE AROM AXS. [phone] THANK YOU, CHARLIE WARD
--- NOTE | 2019-06-15 18:15 | NUR ---
BED ALARM SOUNDED AND ENGINEERING PROFESSOR WENT TO PATIENTS ROOM. PATIENT WAS ALREADY IN RESTROOM AT THE TIME ENGINEERING PROFESSOR ENTERED AND HAD SHUT BATHROOM DOOR STATING "IM OK", WHEN ENGINEERING PROFESSOR RETURNED TO CHECK ON PATIENT HE HAD FALLEN IN FLOOR HAD SLIPPED IN URINE ON FLOOR, NO INJURIES NOTED EXCEPT PATIENT REPORTS SORENESS TO RIGHT FORTH FINGER. BED ALARM, YELLOW BRACELET, NONSLIP SOCKS, AND YELLOW GOWN IN PLACE AT TIME OF FALL. NOTIFIED WILTON BRAGA, PHYSICIAN AND PATIENTS FAMILY OF FALL.
[2019-06-15 20:00] VITALS: BP 128/60
--- NOTE | 2019-06-15 20:10 | NUR ---
LYING IN BED. ALERT AND ORIENTED TO SELF, PLACE AND SITUATION. C/O SORENESS IN LT PINKY FINGER. RESP IRREG, SOB. O2 @ 9L/HFC. BBS CTA DIMINISHED IN LT LOBES. SCDS IN USE BILAT. SALINE LOCK NOTED TO LT FOREARM. JOSE R ALARM ON FOR PT SAFETY. SR ELEVATED X2. CL IN REACH.
--- NOTE | 2019-06-15 20:16 | NUR ---
MARIPOSA KNIGHT AND MS CONTIN. PT DOESNT THINK HE NEEDS IT AND STAFF ALSO CAUTIOUS OF GIVING IT DUE TO CONFUSION DURING LAST PM SHIFT.
--- NOTE | 2019-06-15 22:25 | NUR ---
PT ORIENTED TO SELF AND PLACE. CONFUSED TO TIME AND SITUATION. RESTLESS AND STATES, "IM GOING HOME TOMORROW." NOTIFIED DAMEON RASCON OF CONFUSION AT NIGHT AND OF C/O PAIN IN LT 5TH DIGIT. NEW ORDERS NOTED FOR XRAY LT HAND, CHANGED XANAX AND MS CONTIN TO PRN AND ADD NEURO CHECKS.
[2019-06-16] VITALS: BP 115/40
--- NOTE | 2019-06-16 02:27 | NUR ---
LYING IN BED WITH EYES CLOSED. RESP EVEN AND NONLABORED. NO DISTRESS. O2 IN USE. JOSE R ALARM ON. CL IN REACH.
[2019-06-16 04:00] VITALS: BP 108/90
[2019-06-16 05:56] LABS: BASOPHILS 0.1 % (0-2); EOSINOPHILS 5.4 % (0-7); HEMATOCRIT 36.9 % (42.0-54.0); HEMOGLOBIN 11.8 g/dL (13.5-17.5); IMMATURE GRANULOCYTES 0.3 % (0-5); LYMPHOCYTES 17.1 % (15-50); MCH 30.6 pg (26.0-34.0); MCV 95.8 fL (80.0-100.0); MEAN PLATELET VOLUME 10.1 fL (7.4-10.4); MONOCYTES 14.7 % (2-11); NEUTROPHILS 62.4 % (40-80); PLATELET COUNT 192 10x3/uL (130-400); RBC 3.85 10x6/uL (4.20-6.10); RDW 12.4 % (11.5-14.5); WBC 7.8 10x3/uL (4.8-10.8)
[2019-06-16 06:16] LABS: ALBUMIN 2.9 g/dL (3.4-5.0); ANION GAP 10.2 mmol/L (8-16); BILIRUBIN - TOTAL 0.51 mg/dL (0.2-1.3); CALCIUM 8.6 mg/dL (8.5-10.1); CARBON DIOXIDE 33.3 mmol/L (21.0-32.0); CREATININE - SERUM 1.5 mg/dL (0.6-1.3); POTASSIUM - SERUM 4.5 mmol/L (3.5-5.1); PROTEIN - SERUM 7.6 g/dL (6.4-8.2)
--- NOTE | 2019-06-16 08:33 | NUR ---
resting in bed, confused, no distress noted, paige to bed for pt safety, cont to monitor intake, o2per nc at 9l, sl in place
[2019-06-16 08:39] VITALS: BP 131/87
[2019-06-16 12:46] VITALS: BP 139/76
[2019-06-16 14:15] VITALS: Ht 185.4 cm; Wt 78.5 kg
--- NOTE | 2019-06-16 15:46 | NUR ---
OT NOTE: PT COMPETED SUPINE TO SIT WITH SBA-CGA. PT COMPLETED SIT TO STAND WITH CGA. PT COMPLETED ADL MOB WITH CGA. PT COMPLETED FACE WASH WITH SET UP. PT COMPLETED BUE AROM EXS. [phone] THANK YOU, CHARLIE WARD
[2019-06-16 16:45] VITALS: BP 122/76
--- NOTE | 2019-06-16 18:48 | NUR ---
FAMILY EMPTY URINAL THRU DAY SO NO OUTPUT TO RECORD
--- NOTE | 2019-06-16 19:45 | NUR ---
PT SITTING UP IN BED WITHOUT DISTRESS, ORIENTED TO SELF AND PLACE. SCDS ON BILAT. JOSE R ON. HARD OF HEARING. DENIES NEEDS. CL IN REACH, WILL CTM
[2019-06-16 20:00] VITALS: BP 131/72
[2019-06-17 04:00] VITALS: BP 127/27
[2019-06-17 07:08] LABS: BASOPHILS 0.1 % (0-2); EOSINOPHILS 2.5 % (0-7); HEMATOCRIT 39.5 % (42.0-54.0); IMMATURE GRANULOCYTES 0.1 % (0-5); LYMPHOCYTES 11.7 % (15-50); MCH 31.3 pg (26.0-34.0); MCHC 32.9 g/dL (31.0-37.0); MCV 95.2 fL (80.0-100.0); MEAN PLATELET VOLUME 10.2 fL (7.4-10.4); MONOCYTES 11.1 % (2-11); NEUTROPHILS 74.5 % (40-80); PLATELET COUNT 212 10x3/uL (130-400); RBC 4.15 10x6/uL (4.20-6.10); RDW 12.6 % (11.5-14.5)
--- NOTE | 2019-06-17 07:15 | NUR ---
PATIENT CO PAIN A 9 OUT OF 10 ON PAIN SCALE. REQUESTING PAIN MEDICATION. ADVISED I WILL GET WHEN I RETURN AFTER SHIFT REPORT. CL IN REACH. NO FURTHER NEEDS AT THIS TIME. WCTM
[2019-06-17 07:22] LABS: ALBUMIN 3.1 g/dL (3.4-5.0); ANION GAP 11.4 mmol/L (8-16); BILIRUBIN - TOTAL 0.6 mg/dL (0.2-1.3); CALCIUM 9.3 mg/dL (8.5-10.1); CARBON DIOXIDE 31.1 mmol/L (21.0-32.0); CREATININE - SERUM 1.4 mg/dL (0.6-1.3); POTASSIUM - SERUM 4.5 mmol/L (3.5-5.1); PROTEIN - SERUM 8.3 g/dL (6.4-8.2)
--- NOTE | 2019-06-17 08:33 | NUR ---
(LATE ENTRY FOR 06/16/19) OT NOTE: SUPINE TO SIT WITH MIN ASSIST; MOD ASSIST WITH BED MOB; DIFFICULTY FOLLOWING MULTI STEP COMMANDS SECONDARY TO DECREASED PROCESSING SKILLS; ABLE TO FOLLOW SIMPLE COMMANDS. MOD ASSIST FOR SIT TO STAND ARIEL SONG OTR/L
[2019-06-17 08:45] VITALS: BP 125/63
--- NOTE | 2019-06-17 11:53 | NUR ---
BACK IN BED. STATES PAIN IS A 5 OUT OF 10. SISTER IN LAW ASSITED WITH PATIENT WASHING HANDS. CL IN REACH. TM
[2019-06-17 12:46] VITALS: BP 119/66
--- NOTE | 2019-06-17 13:52 | NUR ---
PATIENT SAT IS 94 % ON 6 L HIGH FLOW.
--- NOTE | 2019-06-17 15:57 | NUR ---
OT NOTE: PT COMPLETED ADL MOB WITH CGA. PT COMPLETED SIT TO STAND WITH CGA. PT COMPLETED HYGIENE WITH CGA. PT COMPLETED UE AROM AXS. [phone] THANK YOU, CHARLIE WARD
[2019-06-17 17:23] VITALS: BP 118/67
--- NOTE | 2019-06-17 20:00 | NUR ---
PT SITTING UP IN BED WITHOUT DISTRESS, AOX4. IV LEFT FA SL, FLUSHES EASILY. O2 6L/NC. SCDS ON. USING URINAL AT BEDSIDE. STATES HE IS HAVING SOME PAIN BUT OXY HELPED. WANTS SOMETHING TO HELP HIM SLEEP AND IS VERY ANXIOUS THAT HE HAS NOT BEEN ABLE TO GO HOME YET. GAVE XANAX ORDERED. DENIES OTHER NEEDS. WILL CTM
--- NOTE | 2019-06-17 22:00 | NUR ---
PT FEELING NAUSEOUS. GAVE ZOFRAN ORDERED. DENIES OTHER NEEDS. WILL CTM
--- NOTE | 2019-06-18 02:00 | NUR ---
PT HAVING PAIN "ALL OVER." GAVE OXY ORDERED. DENIES OTHER NEEDS. WILL CTM
[2019-06-18 04:00] VITALS: BP 141/79
[2019-06-18 05:12] LABS: BASOPHILS 0 % (0-2); EOSINOPHILS 0.1 % (0-7); HEMATOCRIT 37.8 % (42.0-54.0); HEMOGLOBIN 12.4 g/dL (13.5-17.5); IMMATURE GRANULOCYTES 0.2 % (0-5); MCH 30.8 pg (26.0-34.0); MCHC 32.8 g/dL (31.0-37.0); MCV 93.8 fL (80.0-100.0); MEAN PLATELET VOLUME 9.9 fL (7.4-10.4); MONOCYTES 10.6 % (2-11); NEUTROPHILS 80.1 % (40-80); PLATELET COUNT 224 10x3/uL (130-400); RBC 4.03 10x6/uL (4.20-6.10); RDW 12.3 % (11.5-14.5); WBC 9.9 10x3/uL (4.8-10.8)
[2019-06-18 05:53] LABS: ALBUMIN 2.9 g/dL (3.4-5.0); BILIRUBIN - TOTAL 0.3 mg/dL (0.2-1.3); CALCIUM 8.9 mg/dL (8.5-10.1); CARBON DIOXIDE 29.8 mmol/L (21.0-32.0); CREATININE - SERUM 1.5 mg/dL (0.6-1.3); PROTEIN - SERUM 8.1 g/dL (6.4-8.2)
[2019-06-18 05:54] LABS: ANION GAP 12.8 mmol/L (8-16); POTASSIUM - SERUM 5.6 mmol/L (3.5-5.1)
[2019-06-18 09:29] VITALS: BP 112/78
--- NOTE | 2019-06-18 11:25 | NUR ---
PATIENT LAYING IN BED. READY FOR DISCHARGE. BACK ON 6 L. DESAT AFTER MED TO 86% ON [address] IN[address] O2. DR VENTURA NOTIFIED. CL IN REACH. TM
[2019-06-18 12:23] VITALS: BP 135/78
--- NOTE | 2019-06-18 12:26 | MORECARE ---
CASE MANAGEMENT DISCHARGE SUMMARY PATIENT: CECY BARRERA UNIT: [id number] ADM DATE: 06/14/19 AGE: 83 : 36 SEX: M ROOM/BED: D.2211 AUTHOR: RADHAMES GARZA PHYSICIAN: REFERRING PHYSICIAN: KEMAR CASAS MD DATE OF SERVICE: 06/18/19 Discharge Plan Patient Name: CECY BARRERA [facility] [facility] 1935 Planned Disposition: Home with Hospice Anticipated Discharge Date: Discharge Date: Expected LOS: Initial Reviewer: [email or web address] Initial Review Date: 06/14/2019 Generated: 06/18/19 1:26 pm Coverage Notice Reviewer: [id number] - Lizz Negrete Notice Issued Date-Time: 06/18/2019 8:35 Notice Type: IM Discharge Notice Notice Delivered To: Patient Relationship to Patient: Defence Force Member Other Ranks Name: Delivery Method: HAND - Hand Delivered Angeli Days: Prior Verbal Notification: Recipient Understood Notice: Yes Recipient Signature: Yes Med Rec Note Co-signed by Attending: Coverage Notice Comment: Patient Name: CECY BARRERA Page [phone] at 1226 All edits/amendments must be made on the electronic document DICTATION DATE: 06/18/19 1226 BUS REPAIR SUPERVISOR: OCTAVIA 06/18/19 1226 RPT#: [id number] DC DATE: STATUS: ADM IN [facility] [address] [place] [address] END OF REPORT
--- NOTE | 2019-06-18 12:46 | MORECARE ---
CASE MANAGEMENT DISCHARGE SUMMARY PATIENT: CECY BARRERA UNIT: [id number] ADM DATE: 06/14/19 AGE: 83 : 36 SEX: M ROOM/BED: D.2211 AUTHOR: RADHAMES GARZA PHYSICIAN: REFERRING PHYSICIAN: KEMAR CASAS MD DATE OF SERVICE: 06/18/19 Discharge Plan Patient Name: CECY BARRERA Facility: [facility]:[place] : 1935 Planned Disposition: Home with Hospice Anticipated Discharge Date: Discharge Date: Expected LOS: Initial Reviewer: [email or web address] Initial Review Date: 06/14/2019 Generated: 06/18/19 1:46 pm Comments DCP- Discharge Planning Updated by [email or web address]: Lizz Negrete on 06/18/19 11:[address] Patient Name: CECY BARRERA Admission Status: Elective Accout number: [id number] Admission Date: 06-14-2019 : 1935 Admission Diagnosis: Attending: ALEX CASAS Current LOS: 4 Anticipated DC Date: Planned Disposition: Home with Hospice Primary Insurance: [employer] CHOICE PPO MCR ADVANT Discharge Planning Comments: CM met with patient to complete initial dc planning assessment. CM educated patient on the CM role and verbal consent given by patient to complete assessment. Patient lives at home where his son lives with him. At discharge patient plans to return home and feels this is a safe discharge. CM discussed availability of home health, rehab services, and medical equipment. He has 2 steps to enter his home. He has home o2 with portability, walker, wheelchair, BSC, and shower chair. He stated that he is on hospice, but he could not remember which one. ( after calling multiple hospices, I found out that he is with [facility]) RUFINO signed and placed in chart. IMM served and explained. He is ready to go home. 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 Patient denied known discharge needs at this time. CM will continue to follow and will assist as needed with dc plans/needs. Manager Sas: Lizz Negrete DCPIA - Discharge Planning Initial Assessment Updated by [id number]: Lizz Negrete on 06/18/19 12:41 pm * Is the patient Alert and Oriented? Yes * How many steps to enter\exit or inside your home? * PCP YESSENIA * [facility] * Preadmission Environment Home with Family * ADLs Total Dependent * Equipment Bedside Commode Nebulizer Oxygen Rolling Walker Shower Chair * List name and contact numbers for known caregivers / representatives who currently or will assist patient after discharge: KAYE PORTILLO) [phone] * Verbal permission to speak to the caregivers and representatives has been obtained from the patient. N/A * Community resources currently utilized Hospice Home * Please name any agencies selected above. [facility] * Additional services required to return to the preadmission environment? No * Can the patient safely return to the preadmission environment? Yes * Has this patient been hospitalized within the prior 30 days at any hospital? No Coverage Notice Reviewer: [id number] Dajuan Negrete Notice Issued Date-Time: 06/18/2019 8:35 Notice Type: IM Discharge Notice Notice Delivered To: Patient Relationship to Patient: Inside Horticultural Specialty Grower Name: Delivery Method: HAND - Hand Delivered Angeli Days: Prior Verbal Notification: Recipient Understood Notice: Yes Recipient Signature: Yes Med Rec Note Co-signed by Attending: Coverage Notice Comment: Last DP export: 06/18/19 11:26 a Patient Name: CECY BARRERA Page [phone] at 1246 All edits/amendments must be made on the electronic document DICTATION DATE: 06/18/19 1246 STEREO PLOTTER OPERATOR: OCTAVIA 06/18/19 1246 RPT#: [id number] DC DATE: STATUS: ADM IN [facility] [address] [place] [address] END OF REPORT
--- NOTE | 2019-06-18 13:54 | NUR ---
Nutrition follow-up: Diet: Low sodium PO intake 50-75% of most meals Labs reviewed Wt: 172# RDN following.
[2019-06-18 16:11] VITALS: BP 133/69
--- NOTE | 2019-06-18 16:36 | MORECARE ---
CASE MANAGEMENT DISCHARGE SUMMARY PATIENT: CECY BARRERA UNIT: [id number] ADM DATE: 06/14/19 AGE: 83 : 36 SEX: M ROOM/BED: D.2211 AUTHOR: RADHAMES GARZA PHYSICIAN: REFERRING PHYSICIAN: KEMAR CASAS MD DATE OF SERVICE: 06/18/19 Discharge Plan Patient Name: CECY BARRERA Facility: [facility]:[place] : 1935 Planned Disposition: Home with Hospice Anticipated Discharge Date: Discharge Date: Expected LOS: Initial Reviewer: [id number] Initial Review Date: 06/14/2019 Generated: 06/18/19 5:35 pm Comments DCP- Discharge Planning Updated by [email or web address]: Lizz Negrete on 06/18/19 11:[address] Patient Name: CECY BARRERA Admission Status: Elective Accout number: [id number] Admission Date: 06-14-2019 : 1935 Admission Diagnosis: Attending: ALEX CASAS Current LOS: 4 Anticipated DC Date: Planned Disposition: Home with Hospice Primary Insurance: [employer] CHOICE PPO MCR ADVANT Discharge Planning Comments: CM met with patient to complete initial dc planning assessment. CM educated patient on the CM role and verbal consent given by patient to complete assessment. Patient lives at home where his son lives with him. At discharge patient plans to return home and feels this is a safe discharge. CM discussed availability of home health, rehab services, and medical equipment. He has 2 steps to enter his home. He has home o2 with portability, walker, wheelchair, BSC, and shower chair. He stated that he is on hospice, but he could not remember which one. ( after calling multiple hospices, I found out that he is with [facility]) RUFINO signed and placed in chart. IMM served and explained. He is ready to go home. 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 Patient denied known discharge needs at this time. CM will continue to follow and will assist as needed with dc plans/needs. Animal Control Officer: Lizz Negrete DCPIA - Discharge Planning Initial Assessment Updated by [id number]: Lizz Negrete on 06/18/19 12:41 pm * Is the patient Alert and Oriented? Yes * How many steps to enter\exit or inside your home? * PCP YESSENIA * [facility] * Preadmission Environment Home with Family * ADLs Total Dependent * Equipment Bedside Commode Nebulizer Oxygen Rolling Walker Shower Chair * List name and contact numbers for known caregivers / representatives who currently or will assist patient after discharge: KAYE PORTILLO) [phone] * Verbal permission to speak to the caregivers and representatives has been obtained from the patient. N/A * Community resources currently utilized Hospice Home * Please name any agencies selected above. [facility] * Additional services required to return to the preadmission environment? No * Can the patient safely return to the preadmission environment? Yes * Has this patient been hospitalized within the prior 30 days at any hospital? No External Providers [facility] Next Contact Date: Service Request Date: Service Type: Resolution: Reviewer: Comments: Coverage Notice Reviewer: [id number] Dajuan Negrete Notice Issued Date-Time: 06/18/2019 8:35 Notice Type: IM Discharge Notice Notice Delivered To: Patient Relationship to Patient: Inspector Screen Printing Name: Delivery Method: HAND - Hand Delivered Angeli Days: Prior Verbal Notification: Recipient Understood Notice: Yes Recipient Signature: Yes Med Rec Note Co-signed by Attending: Coverage Notice Comment: Last DP export: 06/18/19 11:46 a Patient Name: CECY BARRERA Page [phone] at 1636 All edits/amendments must be made on the electronic document DICTATION DATE: 06/18/19 163 HEDIS MANAGER: OCTAVIA 06/18/19 1635 RPT#: [id number] DC DATE: STATUS: ADM IN [facility] [address] [place] [address] END OF REPORT
--- NOTE | 2019-06-18 19:30 | NUR ---
HOME HOSPICE NURSE WOULD LIKE TO BE NOTIFIED WHEN PATIENT LEAVES AND EQUIPMENT NEEDED. [facility] [phone]
[2019-06-18 20:00] VITALS: BP 152/77
[2019-06-19] VITALS: BP 148/75
--- NOTE | 2019-06-19 04:36 | NUR ---
I have reviewed this patient and I concur with the Shift Assessment completed by the Licensed Practical Nurse today this shift.
[2019-06-19 05:41] LABS: BASOPHILS 0 % (0-2); EOSINOPHILS 0 % (0-7); HEMATOCRIT 39.6 % (42.0-54.0); IMMATURE GRANULOCYTES 0.1 % (0-5); LYMPHOCYTES 7.2 % (15-50); MCHC 32.8 g/dL (31.0-37.0); MCV 94.3 fL (80.0-100.0); MEAN PLATELET VOLUME 9.8 fL (7.4-10.4); NEUTROPHILS 86.7 % (40-80); RDW 12.5 % (11.5-14.5); WBC 9.9 10x3/uL (4.8-10.8)
[2019-06-19 05:43] LABS: PLATELET COUNT 269 10x3/uL (130-400)
[2019-06-19 05:59] LABS: ALBUMIN 3.1 g/dL (3.4-5.0); ANION GAP 11.6 mmol/L (8-16); BILIRUBIN - TOTAL 0.25 mg/dL (0.2-1.3); CALCIUM 9.2 mg/dL (8.5-10.1); CREATININE - SERUM 1.5 mg/dL (0.6-1.3); POTASSIUM - SERUM 5.6 mmol/L (3.5-5.1); PROTEIN - SERUM 8.4 g/dL (6.4-8.2)
[2019-06-19 07:50] VITALS: BP 166/77
--- NOTE | 2019-06-19 10:39 | NUR ---
PT REFUSED TX PT VOMITING
[2019-06-19 13:24] VITALS: BP 126/79
[2019-06-19 16:43] VITALS: BP 175/73
[2019-06-19 19:30] VITALS: BP 145/76
[2019-06-20 00:30] VITALS: BP 153/74
--- NOTE | 2019-06-20 01:13 | NUR ---
EYES CLOSED RESP EVEN AND UNLABORED. NO DISTRESS NOTED. O2 @ 6L PER HIGHFLOW INTACT WITHOUT DISTRESS NOTED. CL IN REACH
--- NOTE | 2019-06-20 02:13 | NUR ---
I have reviewed this patient and I concur with the Shift Assessment completed by the Licensed Practical Nurse today this shift.
[2019-06-20 05:11] VITALS: BP 148/82
[2019-06-20 06:20] LABS: BASOPHILS 0.1 % (0-2); EOSINOPHILS 0.1 % (0-7); HEMATOCRIT 40.5 % (42.0-54.0); HEMOGLOBIN 13.1 g/dL (13.5-17.5); IMMATURE GRANULOCYTES 0.4 % (0-5); LYMPHOCYTES 15.2 % (15-50); MCH 30.6 pg (26.0-34.0); MCHC 32.3 g/dL (31.0-37.0); MCV 94.6 fL (80.0-100.0); MEAN PLATELET VOLUME 10.1 fL (7.4-10.4); MONOCYTES 11.5 % (2-11); NEUTROPHILS 72.7 % (40-80); PLATELET COUNT 294 10x3/uL (130-400); RBC 4.28 10x6/uL (4.20-6.10); RDW 12.6 % (11.5-14.5); WBC 11.9 10x3/uL (4.8-10.8)
[2019-06-20 06:31] LABS: BILIRUBIN - TOTAL 0.35 mg/dL (0.2-1.3); CALCIUM 9.1 mg/dL (8.5-10.1); CARBON DIOXIDE 34.9 mmol/L (21.0-32.0); CREATININE - SERUM 1.4 mg/dL (0.6-1.3)
[2019-06-20 06:33] LABS: ANION GAP 6.8 mmol/L (8-16); POTASSIUM - SERUM 4.7 mmol/L (3.5-5.1)
[2019-06-20 07:53] VITALS: BP 154/70
--- NOTE | 2019-06-20 08:58 | NUR ---
PT ALERT X 4. BREATH SOUNDS CLEAR BILAT, 4L O2 PER NC. IV TO LEFT FOREARM, SALINE LOCKED. PT REPORTING NO PAIN AT THIS TIME. BED LOW, CALL LIGHT IN REACH. NO OTHER NEEDS AT THIS TIME.
[2019-06-20 12:16] VITALS: BP 129/72
[2019-06-20 17:04] VITALS: BP 138/80
[2019-06-20 19:30] VITALS: BP 140/80
--- NOTE | 2019-06-21 00:20 | NUR ---
ALERT ORIENTED X 3. RESP EVEN AND UNLBORED. NO DISTRESS NOTED O2 @ 3L PER NC ON. CL IN REACH FALL PRECAUTIONS IN PLACE.
[2019-06-21 00:42] VITALS: BP 138/78
--- NOTE | 2019-06-21 03:00 | NUR ---
I have reviewed this patient and I concur with the Shift Assessment completed by the Licensed Practical Nurse today this shift.
[2019-06-21 05:40] VITALS: BP 133/84
[2019-06-21 05:47] LABS: BASOPHILS 0 % (0-2); EOSINOPHILS 0 % (0-7); HEMATOCRIT 40.2 % (42.0-54.0); HEMOGLOBIN 13.1 g/dL (13.5-17.5); IMMATURE GRANULOCYTES 0.5 % (0-5); LYMPHOCYTES 12.8 % (15-50); MCH 30.8 pg (26.0-34.0); MCHC 32.6 g/dL (31.0-37.0); MCV 94.6 fL (80.0-100.0); MEAN PLATELET VOLUME 9.9 fL (7.4-10.4); MONOCYTES 8.7 % (2-11); PLATELET COUNT 309 10x3/uL (130-400); RBC 4.25 10x6/uL (4.20-6.10); RDW 12.5 % (11.5-14.5); WBC 10.6 10x3/uL (4.8-10.8)
[2019-06-21 06:35] LABS: ALBUMIN 3.1 g/dL (3.4-5.0); ANION GAP 11.2 mmol/L (8-16); BILIRUBIN - TOTAL 0.36 mg/dL (0.2-1.3); CALCIUM 8.9 mg/dL (8.5-10.1); CARBON DIOXIDE 32.4 mmol/L (21.0-32.0); CREATININE - SERUM 1.4 mg/dL (0.6-1.3); PROTEIN - SERUM 7.4 g/dL (6.4-8.2)
[2019-06-21 06:41] LABS: POTASSIUM - SERUM 5.6 mmol/L (3.5-5.1)
--- NOTE | 2019-06-21 08:32 | NUR ---
AWAKE AND ALERT. ORIENTED X3. SITTING UP ON SIDE OF BED EATING BREAKFAST. LUNGS ARE DIMINISHED BUT CLEAR. PRODUCTIVE COUGH NOTED. SKIN IS INTACT WTIHOUT REDNESS. SL TO LEFT FOREARM IS PATENT WTIHOUT REDNESS AT INSERTION SITE. DENIES NEEDS. O2 AT 3L HIGH FLOW.
[2019-06-21 09:03] VITALS: BP 111/67
--- NOTE | 2019-06-21 09:15 | NUR ---
ATE ONLY 10% OF BREAKFAST. REFUSED OFFER OF ENSURE STATED"I'LL GET CHOKED". WILL MONITOR. TOOK AM MEDS WITHOUT DIFFICULTY.
[2019-06-21] MEDS ORDERED: LEXAPRO10 MG PO (10:41)
[2019-06-21] MEDS ORDERED: GABAPENTIN100 MG PO (10:41)
[2019-06-21] MEDS ORDERED: PREDNISONE10 MG PO (10:43)
--- NOTE | 2019-06-21 12:14 | MORECARE ---
CASE MANAGEMENT DISCHARGE SUMMARY PATIENT: CECY BARRERA UNIT: [id number] ADM DATE: 06/14/19 AGE: 83 : 36 SEX: M ROOM/BED: D.2211 AUTHOR: KAYLADOC PHYSICIAN: REFERRING PHYSICIAN: KEMAR CASAS MD DATE OF SERVICE: 06/21/19 Discharge Plan Patient Name: CECY BARRERA Facility: [facility]:[place] : 1935 Planned Disposition: Home with Hospice Anticipated Discharge Date: Discharge Date: Expected LOS: Initial Reviewer: [id number] Initial Review Date: 06/14/2019 Generated: 06/21/19 1:13 pm Comments DCP- Discharge Planning Updated by [email or web address]: Lizz Negrete on 06/21/19 11:[address] PATIENT TO BE DISCHARGED TODAY, HOME WITH [facility]. RUFINO SIGNED TO RESUME HOSPICE WITH THEM AND IMM SERVED AND EXPLAINED. CM TO FOLLOW AND FAMILY AT HOSPITAL. DCP- Discharge Planning Updated by [email or web address]: Lizz Negrete on 06/18/19 11:[address] Patient Name: CECY BARRERA Admission Status: Elective Accout number: [id number] Admission Date: 06-14-2019 : 1935 Admission Diagnosis: Attending: ALEX CASAS Current LOS: 4 Anticipated DC Date: Planned Disposition: Home with Hospice Primary Insurance: [employer] CHOICE PPO [facility] ADVANT Discharge Planning Comments: CM met with patient to complete initial dc planning assessment. CM educated patient on the CM role and verbal consent given by patient to complete assessment. Patient lives at home where his son lives with him. At discharge patient plans to return home and feels this is a safe discharge. CM discussed availability of home health, rehab services, and medical equipment. He has 2 steps to enter his home. He has home o2 with portability, walker, wheelchair, BSC, and shower chair. He stated that he is on hospice, but he could not remember which one. ( after calling multiple hospices, I found out that he is with [facility]) RUFINO signed and placed in chart. IMM served and explained. He is ready to go home. He stated that his sister in law will be his driver/sales workers home. Patient denied known discharge needs at this time. CM will continue to follow and will assist as needed with dc plans/needs. Stone Setter: Lizz Negrete DCPIA - Discharge Planning Initial Assessment Updated by [email or web address]: Lizz Negrete on 06/18/19 12:41 pm * Is the patient Alert and Oriented? Yes * How many steps to enter\exit or inside your home? * PCP YESSENIA * [facility] * Preadmission Environment Home with Family * ADLs Total Dependent * Equipment Bedside Commode Nebulizer Oxygen Rolling Walker Shower Chair * List name and contact numbers for known caregivers / representatives who currently or will assist patient after discharge: KAYEDEMARCO PORTILLO) [phone] * Verbal permission to speak to the caregivers and representatives has been obtained from the patient. N/A * Community resources currently utilized Hospice Home * Please name any agencies selected above. [facility] * Additional services required to return to the preadmission environment? No * Can the patient safely return to the preadmission environment? Yes * Has this patient been hospitalized within the prior 30 days at any hospital? No Coverage Notice Reviewer: [id number] Dajuan Negrete Notice Issued Date-Time: 06/18/2019 8:35 Notice Type: IM Discharge Notice Notice Delivered To: Patient Relationship to Patient: Environmental Law Professor Name: Delivery Method: HAND - Hand Delivered Angeli Days: Prior Verbal Notification: Recipient Understood Notice: Yes Recipient Signature: Yes Med Rec Note Co-signed by Attending: Coverage Notice Comment: Reviewer: [id number] Negrete Notice Issued Date-Time: 06/21/2019 12:10 Notice Type: IM Discharge Notice Notice Delivered To: Patient Relationship to Patient: Environmental Law Professor Name: Delivery Method: HAND - Hand Delivered Angeli Days: Prior Verbal Notification: Recipient Understood Notice: Yes Recipient Signature: Yes Med Rec Note Co-signed by Attending: Coverage Notice Comment: Reviewer: [email or web address] Dajuan Negrete Notice Issued Date-Time: 06/21/2019 12:10 Notice Type: Patient Choice Letter Notice Delivered To: Patient Relationship to Patient: Environmental Law Professor Name: Delivery Method: HAND - Hand Delivered Angeli Days: Prior Verbal Notification: Recipient Understood Notice: Yes Recipient Signature: Yes Med Rec Note Co-signed by Attending: Coverage Notice Comment: RUFINO WITH [facility] Last DP export: 06/18/19 3:36 p Patient Name: CECY BARRERA Page [id number] at 1214 All edits/amendments must be made on the electronic document DICTATION DATE: 06/21/191212 LIBRARY SERIALS ASSISTANT: OCTAVIA 06/21/191212 RPT#: [id number] DC DATE: STATUS: ADM IN [facility] [address] [place] [address] END OF REPORT
[2019-06-21 12:45] VITALS: BP 120/73
--- NOTE | 2019-06-21 14:24 | NUR ---
DISCHARGE OK PER DR. VASQUEZ. DISCHARGE INSTRUCTIONS GIVEN BOTH VERBALLY AND WRITTEN. ALL QUESTIONS ANSWERED. PATIENT VERBALIZED UNDERSTANDING OF SAME. NEEDED PRESCRIPTIONS ESCRIBED TO PHARMACY OF CHOICE. SL TO LEFT FOREARM D/C WITH CATHETER INTACT. WAITING ON RIDE TO D/C HOME.
--- NOTE | 2019-06-21 14:41 | NUR ---
DISCHARGED TO HOME AMBULATORY WITH FAMILY. ALL BELONGINGS WITH PATIENT.
--- NOTE | 2019-06-21 16:27 | NUR ---
OT NOTE: PT COMPLETED SIT TO STAND AND ALD MOB WITH SBA/CGA. PT COMPLETED SIMPLE HYGIENE WITH MIN A. [id number] THANK YOU,CHARLIE WARD
--- NOTE | 2019-06-22 08:59 | MORECARE ---
CASE MANAGEMENT DISCHARGE SUMMARY PATIENT: CECY BARRERA UNIT: [id number] ADM DATE: 06/14/19 AGE: 83 : 36 SEX: M ROOM/BED: D.2211 AUTHOR: RADHAMES GARZA PHYSICIAN: REFERRING PHYSICIAN: KEMAR CASAS MD DATE OF SERVICE: 06/22/19 Discharge Plan Patient Name: CECY BARRERA Facility: [facility]:[place] : 1935 Planned Disposition: Home with Hospice Anticipated Discharge Date: Discharge Date: 06/21/2019 Expected LOS: Initial Reviewer: [email or web address] Initial Review Date: 06/14/2019 Generated: 06/22/19 9:58 am Comments DCP- Discharge Planning Updated by [email or web address]: Lizz Negrete on 06/21/19 11:[address] PATIENT TO BE DISCHARGED TODAY, HOME WITH [facility]. RUFINO SIGNED TO RESUME HOSPICE WITH THEM AND IMM SERVED AND EXPLAINED. CM TO FOLLOW AND FAMILY AT HOSPITAL. DCP- Discharge Planning Updated by [email or web address]: Lizz Negrete on 06/18/19 11:[address] Patient Name: CECY BARRERA Admission Status: Elective Accout number: [id number] Admission Date: 06-14-2019 : 1935 Admission Diagnosis: Attending: ALEX CASAS Current LOS: 4 Anticipated DC Date: Planned Disposition: Home with Hospice Primary Insurance: [employer] CHOICE PPO [facility] Discharge Planning Comments: CM met with patient to complete initial dc planning assessment. CM educated patient on the CM role and verbal consent given by patient to complete assessment. Patient lives at home where his son lives with him. At discharge patient plans to return home and feels this is a safe discharge. CM discussed availability of home health, rehab services, and medical equipment. He has 2 steps to enter his home. He has home o2 with portability, walker, wheelchair, BSC, and shower chair. He stated that he is on hospice, but he could not remember which one. ( after calling multiple hospices, I found out that he is with [facility]) RUFINO signed and placed in chart. IMM served and explained. He is ready to go home. He stated that his sister in law will be his helper/driver home. Patient denied known discharge needs at this time. CM will continue to follow and will assist as needed with dc plans/needs. Business Line Controller: Lizz Negrete DCPIA - Discharge Planning Initial Assessment Updated by [id number]: Lizz Negrete on 06/18/19 12:41 pm * Is the patient Alert and Oriented? Yes * How many steps to enter\exit or inside your home? * PCP YESSENIA * [facility] * Preadmission Environment Home with Family * ADLs Total Dependent * Equipment Bedside Commode Nebulizer Oxygen Rolling Walker Shower Chair * List name and contact numbers for known caregivers / representatives who currently or will assist patient after discharge: KAYE BANDAR) [phone] * Verbal permission to speak to the caregivers and representatives has been obtained from the patient. N/A * Community resources currently utilized Hospice Home * Please name any agencies selected above. [facility] * Additional services required to return to the preadmission environment? No * Can the patient safely return to the preadmission environment? Yes * Has this patient been hospitalized within the prior 30 days at any hospital? No Coverage Notice Reviewer: [email or web address] Dajuan Negrete Notice Issued Date-Time: 06/18/2019 8:35 Notice Type: IM Discharge Notice Notice Delivered To: Patient Relationship to Patient: Mainspring Strip Gauger Name: Delivery Method: HAND - Hand Delivered Angeli Days: Prior Verbal Notification: Recipient Understood Notice: Yes Recipient Signature: Yes Med Rec Note Co-signed by Attending: Coverage Notice Comment: Reviewer: [email or web address] Negrete Notice Issued Date-Time: 06/21/2019 12:10 Notice Type: IM Discharge Notice Notice Delivered To: Patient Relationship to Patient: Mainspring Strip Gauger Name: Delivery Method: HAND - Hand Delivered Angeli Days: Prior Verbal Notification: Recipient Understood Notice: Yes Recipient Signature: Yes Med Rec Note Co-signed by Attending: Coverage Notice Comment: Reviewer: [id number] Dajuan Negrete Notice Issued Date-Time: 06/21/2019 12:10 Notice Type: Patient Choice Letter Notice Delivered To: Patient Relationship to Patient: Mainspring Strip Gauger Name: Delivery Method: HAND - Hand Delivered Angeli Days: Prior Verbal Notification: Recipient Understood Notice: Yes Recipient Signature: Yes Med Rec Note Co-signed by Attending: Coverage Notice Comment: RUFINO WITH [facility] Last DP export: 06/21/19 11:14 a Patient Name: CECY BARRERA Page [phone] at 0859 All edits/amendments must be made on the electronic document DICTATION DATE: 06/22/19857 GEAR TECHNICIAN: OCTAVIA 06/22/19857 RPT#: [id number] DC DATE:06/21/19 STATUS: DIS IN [facility] [address] [place] [address] END OF REPORT
== END 2019-06-21 14:41 | disposition home health service (06) | DRG 291 ==
LOC: D.MS 11:24
PROVIDERS: Family Medicine; Internal Medicine Pulmonary Disease; ADMIT Emergency Medicine; ATTEND Emergency Medicine
PROC: 0W9B30Z Drainage of Left Pleural Cavity with Drainage Device, Percutaneous Approach (ICD-10-PCS; principal; 2019-06-15)
DX: I11.0 Hypertensive heart disease with heart failure (principal); J18.9 Pneumonia, unspecified organism; J96.21 Acute and chronic respiratory failure with hypoxia; N17.0 Acute kidney failure with tubular necrosis; J90 Pleural effusion, not elsewhere classified; E44.0 Moderate protein-calorie malnutrition; G72.81 Critical illness myopathy; N17.9 Acute kidney failure, unspecified; I50.33 Acute on chronic diastolic (congestive) heart failure; I25.10 Atherosclerotic heart disease of native coronary artery without angina pectoris; Z68.22 Body mass index [BMI] 22.0-22.9, adult; I48.91 Unspecified atrial fibrillation; N28.9 Disorder of kidney and ureter, unspecified; D64.9 Anemia, unspecified; K21.9 Gastro-esophageal reflux disease without esophagitis; J43.9 Emphysema, unspecified; Z99.81 Dependence on supplemental oxygen

== ENCOUNTER 2020-02-09 19:52 | Emergency (ER) | payer MEDICARE, MEDICAID ==
[2019-06-16 14:15] VITALS: Ht 185.4 cm
[~2020-02-09 19:52] MED LIST changes: +GABAPENTIN100 MG PO; +PREDNISONE10 MG PO
== END 2020-02-09 22:56 ==
LOC: D.ER 19:52
DX: I10 Essential (primary) hypertension; Z95.5 Presence of coronary angioplasty implant and graft; Z95.1 Presence of aortocoronary bypass graft; J44.9 Chronic obstructive pulmonary disease, unspecified